=== PATIENT | female | born 1970 | race Caucasian/White ===

== ENCOUNTER 2016-05-29 02:21 | Inpatient (IN) | payer OTHER ==
[~2016-05-29] VITALS: Ht 172.7 cm; Wt 86.0 kg
[2016-05-29] VITALS (12 sets, daily range): BP systolic 93–107; BP diastolic 56–70; PULSE 53–62; TEMP 36.4–37; O2SAT 95–98; Ht 172.7 cm; Wt 86.0 kg
[~2016-05-29 02:21] MED LIST: ASPEC81 PO; ATOR-26 PO; IPRA1AER2 INH; LSN25 PO; NCDT21X TOP; NTRGSL/4 UT; PLV75 PO; TPRSR50 PO
[2016-05-29] MEDS ORDERED: ASPEC81 PO (02:39)
[2016-05-29] MEDS ORDERED: ATOR-26 PO (02:40)
[2016-05-29] MEDS ORDERED: CLOP1TAB15 PO (02:41)
[2016-05-29] MEDS ORDERED: IPRA1AER2 INH (02:42)
[2016-05-29] MEDS ORDERED: LISI-729 PO (02:43)
[2016-05-29] MEDS ORDERED: METO-217 PO (02:44)
[2016-05-29] MEDS ORDERED: NCDT21X TOP (02:46)
[2016-05-29] MEDS ORDERED: NTRGSL/4 UT (02:47)
[2016-05-29] MEDS ORDERED: POLY1POW2 PO (02:48)
[2016-05-29] MEDS ORDERED: LEVO75TA5 PO (02:50)
[2016-05-29] MEDS ORDERED: PRLSR20 PO (02:50)
--- NOTE | 2016-05-29 03:29 | EMERGENCY ROOM VISIT NOTE ---
History Report prepared by Rona: Perfecto Forrester Under the Supervision of: Dr. Marni Young D.O. First contact with patient: 02:37 Chief Complaint: CHEST PAIN Stated Complaint: CHEST PAIN/PALPITATIONS Nursing Triage Summary: Patient was at home lying down while awake and reports severe left chest pain that radiated into jaw. At that time patient took a Nitro with minimal relief & spouse called EMS. Patient took one more Nitro prior to ambulance arriving. EMS gave patient 324mg of Aspirin & [address] Was effective for majority of pain & now reports "little pressure" rates #1/10 on arrival. AAOx4. Respirations 20 & unlabored. Denies SOB. History of Present Illness The patient is a 45 year old female who presents to the Emergency Room with complaints of sudden onset chest pain that occurred shortly prior to arrival. The patient describes her current pain as a "heaviness" and claimed that it felt as though she was "punched in the chest" at onset. The patient was laying in bed when her symptoms began. Her gave her two nitroglycerin shortly after onset with no relief. Two more nitroglycerin were administered by EMS which improved her condition. She denies any nausea, vomiting, or diaphoresis with her symptoms, but was short of breath during the episode. The patient has a history of cardiac disease and has had stents placed in the past. She currently takes Plavix and baby Aspirin daily. 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 A total of 10 systems reviewed and were otherwise negative. Past Medical & Surgical Medical Problems: (1) NSTEMI (non-ST elevated myocardial infarction) Surgical Problems: (1) H/O breast surgery (2) H/O rotator cuff surgery (3) H/O tubal ligation Family History Heart disease Social History Smoking Status: Former Smoker Alcohol Use: occasionally Drug Use: none Marital Status: Occupation Status: employed Current/Historical Medications Scheduled Aspirin (Aspirin EC Low Dose), 81 MG PO DAILY Atorvastatin (Lipitor), 80 MG PO DAILY Clopidogrel (Plavix), 75 MG PO DAILY Levothyroxine Sodium (Levothyroxine Sodium), 75 MCG PO DAILY Lisinopril (Zestril), 2.5 MG PO DAILY Metoprolol Succinate (Toprol Xl), 50 MG PO DAILY Nicotine (Nicoderm Cq 21MG Patch), 1 PATCH TOP DAILY Omeprazole (Prilosec), 20 MG PO DAILY Polyethylene Glycol 3350 (Bulk (Polyethylene Glycol 3350), 17 GM PO DIRECTED Scheduled PRN Ipratropium-Albuterol (Combivent Respimat), 1 PUFFS INH QID PRN for cough/ wheezing/congestion Nitroglycerin (Nitrostat), 0.4 MG UT DIRECTED PRN for chest pain Allergies Coded Allergies: No Known Allergies (Unverified , 05/29/16) Physical Exam Vital Signs Date Time Temp Pulse Resp B/P Pulse Ox O2 Delivery O2 Flow Rate FiO2 05/29/16 06:34 36.5 62 16 97/61 96 Room Air 05/29/16 06:21 70 16 112/68 98 Nasal Cannula 3 05/29/16 06:16 68 16 113/67 98 Nasal Cannula 3 05/29/16 06:11 70 16 120/73 98 Nasal Cannula 3 05/29/16 06:06 66 16 117/73 98 Nasal Cannula 3 05/29/16 05:31 75 18 143/83 100 Nasal Cannula 2.0 05/29/16 04:58 74 21 116/86 100 Room Air 05/29/16 04:28 62 14 107/65 97 Room Air 05/29/16 04:22 65 16 111/76 97 Room Air 05/29/16 02:31 37.0 74 20 114/64 96 Room Air 05/29/16 02:31 97 Room Air 05/29/16 02:30 72 Physical Exam HEENT: Head - normocephalic and atraumatic Pupils are equal, round, and reactive to light. Extraocular eye muscles are intact, and sclera are anicteric. Nose - moist nasal mucosa without discharge. Mouth - moist buccal mucosa. Oropharynx is nonerythematous and there is no tonsillar exudate or edema noted. Neck: Supple; no JVD, nuchal rigidity, cervical lymphadenopathy, or auscultated bruits. Heart: Regular rate and rhythm. There is a normal S1 and S2 with no murmurs, clicks, or gallops appreciated. Lungs: Clear to auscultation bilaterally with no wheezes, rales, or rhonchi. Abdomen: Soft, completely nontender, nondistended, with good bowel sounds. There are no palpable pulsatile masses or hepatosplenomegaly. There is no guarding, rigidity, or rebound noted. Extremities: No evidence of cyanosis, clubbing, or edema. There are easily palpable peripheral pulses. Skin: warm and dry with good turgor and no rashes. Medical Decision & Procedures ER Provider Diagnostic Interpretation: X-ray results as stated below per interpretation by me: CHEST X-RAY: No pulmonary infiltrates or pleural effusions. Normal cardiac silhouette with no mediastinal widening. Laboratory Results 05/29/16 01:48 05/29/16 01:48 Test 05/29/16 01:48 05/29/16 05:13 Red Blood Count 4.57 M/uL (4.2-5.4) Mean Corpuscular Volume 87.7 fL (80-100) Mean Corpuscular Hemoglobin 29.5 pg (25-34) Mean Corpuscular Hemoglobin Concent 33.7 g/dl (32-36) RDW Standard Deviation 45.4 fL (36.4-46.3) RDW Coefficient of Variation 14.0 % (11.5-14.5) Mean Platelet Volume 10.4 fL (7.4-10.4) Prothrombin Time 9.9 SECONDS (9.0-12.0) Prothromb Time International Ratio 0.9 (0.9-1.1) Activated Partial Thromboplast Time 27.5 SECONDS (21.0-31.0) Partial Thromboplastin Ratio 1.1 Anion Gap 12.0 mmol/L (3-11) Est Creatinine Clear Calc Drug Dose 81.5 ml/min Estimated GFR () 79.6 Estimated GFR (Non- 68.7 BUN/Creatinine Ratio 12.9 (10-20) Calcium Level 9.0 mg/dl (8.5-10.1) Total Bilirubin 0.2 mg/dl (0.2-1) Direct Bilirubin < 0.1 mg/dl (0-0.2) Aspartate Amino Transf (AST/SGOT) 14 U/L (15-37) Alanine Aminotransferase (ALT/SGPT) 24 U/L (12-78) Alkaline Phosphatase 136 U/L (45-117) Total Creatine Kinase 69 U/L (26-192) Creatine Kinase MB 1.1 ng/ml (0.5-3.6) Creatine Kinase MB Ratio 1.6 (0-3.0) Total Protein 7.4 gm/dl (6.4-8.2) Albumin 4.0 gm/dl (3.4-5.0) Troponin I 0.023 ng/ml (0-0.045) Amylase Level 38 U/L (25-115) Lipase 192 U/L (73-393) Laboratory results per my review. Medications Administered Medications (Trade) Dose Ordered Sig/Jem Route Start Time Stop Time Status Last Admin Dose Admin Morphine Sulfate (MoRPHine SULFATE INJ) 4 mg NOW STAT IV 05/29/16 04:15 05/29/16 04:16 DC 05/29/16 04:24 4 MG Ondansetron HCl (Zofran Inj) 4 mg NOW STAT IV 05/29/16 04:15 05/29/16 04:16 DC 05/29/16 04:23 4 MG Nitroglycerin (Nitrostat Tab) 0.4 mg STK-MED ONCE .ROUTE 05/29/16 04:49 05/29/16 04:50 DC 05/29/16 04:49 0.4 MG Morphine Sulfate (MoRPHine SULFATE INJ) 4 mg NOW STAT IV 05/29/16 04:55 05/29/16 04:56 DC 05/29/16 04:55 4 MG Heparin Sodium/ Sodium Chloride (Heparin Sod/Ns 2 Units/Ml) 3,000 unit STK-MED ONCE .ROUTE 05/29/16 05:32 05/29/16 05:33 DC 05/29/16 05:32 3,000 UNIT Midazolam HCl (Versed Inj) 2 mg STK-MED ONCE .ROUTE 05/29/16 05:33 05/29/16 05:34 DC 05/29/16 05:33 1 MG Fentanyl Citrate (Fentanyl Inj) 100 mcg STK-MED ONCE .ROUTE 05/29/16 05:33 05/29/16 05:35 DC 05/29/16 05:33 25 MCG Procedure Medications Ordered: Zofran, Morphine, Nitroglycerin. ECG Indication: chest pain Rate (beats per minute): 76 Rhythm: normal sinus Findings: T-wave inversion (Anteriorly, laterally) Comparison ECG Date: Repeat from this visit Change: Normal sinus rhythm, T-wave inversions still present. [address]-elevation in inferior leads. ED Course 0255: Past medical records reviewed. The patient was evaluated in room B7. A complete history and physical exam was performed. The patient had a twelve- lead EKG. 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 Laboratory studies were drawn as above. 0415: Ordered Zofran 4 mg IV, Morphine Sulfate 4 mg IV. Patient had chest x- ray which was unremarkable. 0422: The patient has been chest pain-free here in the emergency department. I discussed the case with Dr. Maryanne PARADA Hospitalist, he will evaluate the patient for further treatment. 0448: I met with the patient at this time. Her chest pain has returned it is an 8/10 in severity. 0449: Ordered Nitroglycerin 0.4 mg PO. 0455: Ordered Morphine Sulfate 4 mg IV. 0502:I discussed the case with Dr. Morelia PARADA he will come in to see the patient. A heart alert was called 0524: Dr. Thibodeaux was at bedside at this time. I met with him and the patient. She is currently in significant pain. Medical Decision This patient is a 45 year old female who presents to the emergency department for chest pain. Differential Diagnosis includes; STEMI, ACS, in-stent reocclusion, GERD, pleurisy, aortic dissection. Laboratory Results were reviewed and show; No leukocytosis, stable hemoglobin and hematocrit, troponin of 0.022, LFTs normal except for AlkPhos of 136, normal renal function, normal glucose, and normal coagulation studies Repeat troponin showed Troponin of 0.023. The patient presents to the emergency department with a sudden onset of substernal chest discomfort that radiated to her left shoulder and left jaw. Patient recently had an and STEMI with a following cardiac catheterization. She had a subtotal LAD occlusion and had a stent placed. She also had angioplasty of the diagonal. This occurred around May 08. She had been asymptomatic up until tonight. She received nitroglycerin at home and in the field with resolution of her symptoms. However, the patient developed recurrent chest discomfort while here in the emergency department with some slight EKG changes. Her presenting EKG had T-wave inversions in the anterior and lateral leads compared to one from May 09. After the chest pain started again during her ED visit, there was just slight ST segment elevation in the inferior leads. 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 Consults Time Called: [phone] Consulting Physician: Dr. Maryanne Lundberg [facility] Hospitalist Returned Call: [phone] I discussed the case with Dr. Maryanne PARADA Hospitalist, he will evaluate the patient for further treatment. Additional Consults: Time Called: [phone] Consulted Physician: Dr. Morelia PARADA Returned Call: 050 Additional Comments: I discussed the case with Dr. Morelia PARADA he will come in to see the patient. Impression Primary Impression: Substernal chest pain Critical Care I have personally spent greater than 60 minutes of critical care time in the direct management of this patient. This includes bedside care, interpretation of diagnostic studies, and testing, discussion with consultants, patient, and family members, and other required patient management activities. This 60 minutes is in excess of all separately billable procedures. Scribe Attestation The scribe's documentation has been prepared under my direction and personally reviewed by me in its entirety. I confirm that the note above accurately reflects all work, treatment, procedures, and medical decision making performed by me. Departure Information Dispostion Being Evaluated By Hospitalist Referrals Bela Luis M.D. (PCP) Patient Instructions A Signature Page, My [facility]
[2016-05-29 03:45] LABS: HEMATOCRIT 40.1 % (37-47); MEAN CELL VOLUME 87.7 fL (80-100); MEAN CORPUSCULAR HEMOGLOBIN 29.5 pg (25-34); MEAN CORPUSCULAR HGB CONC 33.7 g/dl (32-36); MEAN PLATELET VOLUME 10.4 fL (7.4-10.4); PLATELET COUNT 268 K/uL (130-400); RED BLOOD COUNT 4.57 M/uL (4.2-5.4); WHITE BLOOD COUNT 10.02 K/uL (4.8-10.8)
[2016-05-29 03:51] LABS: INR 0.9 (0.9-1.1); PARTIAL THROMBOPLASTIN RATIO 1.1; PROTHROMBIN TIME (PATIENT) 9.9 SECONDS (9.0-12.0)
[2016-05-29 04:03] LABS: ALT/SGPT 24 U/L (12-78); AST/SGOT 14 U/L (15-37); BLOOD UREA NITROGEN 13 mg/dl (7-18); BUN/CREATININE RATIO 12.9 (10-20); CARBON DIOXIDE 26 mmol/L (21-32); CHLORIDE 104 mmol/L (98-107); CREATININE 0.98 mg/dl (0.60-1.20); GLUCOSE 96 mg/dl (70-99); POTASSIUM 4.2 mmol/L (3.5-5.1); SODIUM 142 mmol/L (136-145)
[2016-05-29 04:08] LABS: ALKALINE PHOSPHATASE 136 U/L (45-117); CKMB/CK RATIO 1.6 (0-3.0)
[2016-05-29] MEDS ORDERED: ONDANSETRON INJ 2 MG/ML 2 ML VIAL IV STA (04:15)
[2016-05-29] MEDS ORDERED: MoRPHine SULFATE 4 MG/ML 1 ML CARP\\VIAL IV STA ×2 (04:15→04:55)
[2016-05-29] MEDS ORDERED: NITROGLYCERIN 0.4 MG SL PER TAB CHARGE ONE (04:49)
[2016-05-29] MEDS ORDERED: NiCARDipine HCL INJ 2.5 MG/ML 10 ML AMP ONE (05:31)
[2016-05-29] MEDS ORDERED: HEPARIN SOD (PORCINE) 1000 UNIT/ML 10 ML VIAL ONE (05:32)
[2016-05-29] MEDS ORDERED: FENTANYL CITRATE INJ 50 MCG/1 ML 2 ML VIAL ONE (05:33)
[2016-05-29] MEDS ORDERED: MIDAZOLAM HCL 1 MG/ML 2ML VIAL ONE (05:33)
[2016-05-29] MEDS ORDERED: NITROGLYCERIN/D5W 100MCG/ML 20ML SYR ONE (05:33)
--- NOTE | 2016-05-29 06:10 | CARDIOLOGY CONSULTATION ---
DATE OF CONSULTATION: 05/29/2016 REASON FOR CONSULT: Unstable angina. HISTORY OF PRESENT ILLNESS: Lupe is a 45-year-old female, with known coronary artery disease. She underwent cardiac catheterization on 05/09/2016 with a 100% LAD early occlusion. A drug-eluting stent placed in the mid LAD with a good result. She developed similar symptoms this evening with severe epigastric pain relieved with 3 nitroglycerins in the ER and now has returned. She has T-wave inversion on EKG which is a new finding. Troponin is mildly elevated with ongoing pain. She was taken emergently to the cardiac catheterization lab. She has mild associated shortness of breath and severe anxiety. No vomiting. No syncope. Blood pressure and heart rate are stable. REVIEW OF SYSTEMS: All other systems are reviewed and negative at this time. PAST MEDICAL HISTORY: Includes coronary artery disease, diabetes, hypertension and hyperlipidemia. PAST SURGICAL HISTORY: 1. PCI mid LAD with a Xience drug-eluting stent. 2. Bilateral tubal ligation, rotator cuff surgery, breast surgery and cholecystectomy. ALLERGIES: None. SOCIAL HISTORY: Positive for recent tobacco abuse - quit after last MD. Negative for significant alcohol or drug use. FAMILY HISTORY: Noncontributory, but positive for coronary artery disease. IMMUNIZATIONS: Unknown. PHYSICAL EXAMINATION: VITAL SIGNS: 37, 75, 18, 143/83, 100% on 2 liters. She is awake, alert and oriented, in moderate distress. NECK: No jugular venous distention or carotid bruits. HEART: Rate is regular, no murmurs, rubs or gallops. PMI cannot be felt. LUNGS: No wheezes, rales or rhonchi. ABDOMEN: Tender in the epigastric area. EXTREMITIES: No edema in all 4 extremities. Dorsalis pedis cannot be felt. Radial pulses 1+ on the right. Femoral pulse 2+ on the right. LABORATORIES: White count 10, hemoglobin 13.5, platelets 268, creatinine 0.98 and troponin 0.022 initially. Chest x-ray personally reviewed, showing no acute disease. Electrocardiogram personally reviewed, showing sinus rhythm with T-wave inversions throughout the anterolateral leads. IMPRESSION: 1. Unstable angina with ECG changes, mild troponin elevation. 2. Known coronary artery disease with history of drug-eluting stent, mid left anterior descending 05/09/2016. 3. Hypertension. 4. Hyperlipidemia. 5. Diabetes. 6. Tobacco abuse. RECOMMENDATIONS: It is recommended that Lupe go to the cardiac catheterization lab more urgently given her severe chest discomfort at this time. She states her symptoms are exactly the same as her previous 100% LAD occlusion. Further recommendations will follow the cardiac catheterization. On previous catheterization, radial attempt was unsuccessful and therefore femoral attempt will be repeated. ADDENDUM: Cath completed. Right femoral access. No significant CAD. Patent LAD stent. Diagonal patent. Nothing to intervene upon. Admit to telemetry, epigastric pain workup. check echo. continue OMT for her CAD. ADELE
--- NOTE | 2016-05-29 06:29 | Procedure Note ---
Pre-Mod Sedation Assessment General Date of Moderate Sedation: May 29, 2016. Vital Signs: Vital Signs Past 12 Hours Date Time Temp Pulse Resp B/P Pulse Ox O2 Delivery O2 Flow Rate FiO2 05/29/16 06:21 70 16 112/68 98 Nasal Cannula 3 05/29/16 06:16 68 16 113/67 98 Nasal Cannula 3 05/29/16 06:11 70 16 120/73 98 Nasal Cannula 3 05/29/16 06:06 66 16 117/73 98 Nasal Cannula 3 05/29/16 05:31 75 18 143/83 100 Nasal Cannula 2.0 05/29/16 04:58 74 21 116/86 100 Room Air 05/29/16 04:28 62 14 107/65 97 Room Air 05/29/16 04:22 65 16 111/76 97 Room Air 05/29/16 02:31 37.0 74 20 114/64 96 Room Air 05/29/16 02:31 97 Room Air 05/29/16 02:30 72 Review Cardiovascular: regular rate, rhythm, no edema, no gallop, no JVD, no murmur, normal peripheral pulses Abdomen: normal bowel sounds, non tender, soft, no organomegaly, no pulsatile mass Lungs: chest non-tender, lungs clear, normal breath sounds, no respiratory distress, no accessory muscle use Pre-Sedation Airway Assessment Able to Visualize Vocal Cords: No Short Thick Neck: No Hx of Sleep Apnea: No Smoking Status: Former Smoker Procedure Planning Contraindications-for Mod Sed: None Yes Notes The planned sedation has been discussed with the patient and consent obtained. I have identified the patient, determined the appropriateness of sedation and have assessed the patient immediately prior to the procedure. All medicine(s) and interventions are by my order.
--- NOTE | 2016-05-29 06:29 | Procedure Note ---
Post-Mod Sedation Assessment General Date of Moderate Sedation May 29, 2016. Vital Signs: Vital Signs Past 12 Hours Date Time Temp Pulse Resp B/P Pulse Ox O2 Delivery O2 Flow Rate FiO2 05/29/16 06:21 70 16 112/68 98 Nasal Cannula 3 05/29/16 06:16 68 16 113/67 98 Nasal Cannula 3 05/29/16 06:11 70 16 120/73 98 Nasal Cannula 3 05/29/16 06:06 66 16 117/73 98 Nasal Cannula 3 05/29/16 05:31 75 18 143/83 100 Nasal Cannula 2.0 05/29/16 04:58 74 21 116/86 100 Room Air 05/29/16 04:28 62 14 107/65 97 Room Air 05/29/16 04:22 65 16 111/76 97 Room Air 05/29/16 02:31 37.0 74 20 114/64 96 Room Air 05/29/16 02:31 97 Room Air 05/29/16 02:30 72 Review - Discharge Criteria Vital Signs Stable: Yes Alert/Oriented/Conversant: Yes Returned to Baseline Mental St: Yes Nausea Absent/Minimal: Yes Pain/Discomfort/Absent/Minimal: Yes Normal/Baseline Respirations: Yes Active Bleeding?: No Pt Received D/C Instructions: Yes Prescriptions Given: None Specific Proced. D/C Criteria Distal Pulses Present (Cardiac: Yes Groin site assessed-Card Cath: Yes Voided Prior To Discharge: N/A Discharged Patients Adult Escort/Transportation: N/A
[2016-05-29] MEDS ORDERED: ONDANSETRON INJ 2 MG/ML 2 ML VIAL IV PRN (06:30)
[2016-05-29] MEDS ORDERED: IPRATROPIUM BROMIDE/ALBUTEROL respimat INH INH PRN (06:30)
[2016-05-29] MEDS ORDERED: SODIUM CHLORIDE 0.9% 1000ML 1,000 ML IV SCH (06:30)
[2016-05-29] MEDS ORDERED: POLYETHYLENE GLYCOL PO SCH (06:30)
[2016-05-29] MEDS ORDERED: NITROGLYCERIN 0.4 MG SL PER TAB CHARGE UT PRN (06:30)
--- NOTE | 2016-05-29 06:37 | Cardiac Catheterization ---
Procedure Note Procedure Date May 29, 2016. 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 Thibodeaux Veterinary Manager(s) alexander Estimated Blood Loss 20 Medication(s) Fentanyl, Versed, Lidocaine 1% Summary of Findings Angina-equivalent epigastric pain - minimal ST elevations inferiorly, new T wave inversions anterolaterally. Severe pain. Discussion with ED - Heart Alert called. US -guided right TEST LEAD access. EBU 3.75. LM: normal. LAD: patent mid vessel stent. Diagonal vessel patent. LAD wraps the apex. LCx: normal. RCA: dominant. Normal. LVgram not performed. Mynx to the right groin Recommendation: admit to telemetry, cycle another troponin in the AM. Evaluate for other causes of abdominal pain. Hemodynamics Rest Ao: 127/70/93 Final Ao: 132/66/92 LV: 155/88/74 Recommendations Medical therapy and/or Counseling Specimens None Radiation Exposure (mGy) 938 Contrast (mls) 90 Fluids (cc crystalloids) 50 Drains none Anesthesia fent versed lido Procedural Complication(s) None Disposition PCU ACC Data Cardiac Status Clinical evaluation leading to the procedure CAD Presntation: Unstable angina Anginal Classification: CCS IV Heart Failure: Yes, NYHA Class: CCS II Cardiogenic Shock w/in 24Hrs: No Cardiac Arrest w/in 24Hrs: No Imaging studies past 6 months: Yes Stress studies past 6 months: No Standard Exercise Stress Test: No Stress Echocardiogram: No Stress Testing w/SPECT MPI: No Cardiac CTA: No Coronary Anatomy Dominant: Right Left Main (% Stenosis): Normal LAD (% Stenosis): Proximal (30), Mid (stent patent) D1 (% Stenosis): Normal Circumflex (% Stenosis): Normal RCA (% Stenosis): Normal Left Ventricular Angiography EF (%): not done Diagnostic Physician's Name: Jose Thibodeaux, DO Status: Emergency Closure Device Percutaneous Entry Location: Femoral Closure Device: Mynx Recommendations: Medical therapy and/or Counseling Intraprocedure Events Significant Dissection: No Perforation: No
[2016-05-29 06:53] LABS: AMYLASE 38 U/L (25-115)
--- NOTE | 2016-05-29 06:53 | DIAGNOSTIC IMAGING REPORT ---
CHEST ONE VIEW PORTABLE CLINICAL HISTORY: Left sided chest pain. COMPARISON STUDY: Chest radiograph May 09, 2016. FINDINGS: No pneumothorax or pleural effusion is present. Apparent hazy bibasilar opacities are likely artifactual. Cardiac size is normal. Mediastinal contours are normal. There is no evidence of pulmonary edema. The appearance of the chest is unchanged. IMPRESSION: No acute cardiopulmonary findings. Electronically signed by: Arnol Ta M.D. 05/29/2016 6:51 AM Dictated Date/Time: 05/29/2016 6:50 AM
[2016-05-29] MEDS ORDERED: GI COCKTAIL PO PRN (08:00)
[2016-05-29] MEDS ORDERED: ALUMINUM/MAGNESIUM SUSP 72 ML, LIDOCAINE HCL 2% VISCOUS SOLN 24 ML, BARCODE IDENTIFIER ... PO PRN ×2 (08:15)
[2016-05-29] MEDS ORDERED: ACETAMINOPHEN 325 MG TAB ONE (09:07)
[2016-05-29] MEDS ORDERED: PERFLUTREN LIPID MICROSPHERE (DEFINITY) IV ONE (09:45)
[2016-05-29] MEDS: METOPROLOL SUCC 50MG EXT REL TAB PO SCH (10:05)
[2016-05-29] MEDS: CLOPIDOGREL BISULFATE 75 MG TAB PO SCH (10:05)
[2016-05-29] MEDS: LISINOPRIL 2.5 MG TAB PO SCH (10:05)
[2016-05-29] MEDS: NICOTINE 21 MG/24 HR TDSY TD SCH (10:06)
[2016-05-29] MEDS: ASPIRIN 81 MG ECTAB PO SCH (10:06)
[2016-05-29] MEDS: ATORVASTATIN 40 MG TAB PO SCH (10:06)
[2016-05-29] MEDS: PANTOprazole SOD 40 MG TAB PO SCH (10:08)
[2016-05-29] MEDS ORDERED: HYDROmorphone INJ 0.5 MG/0.5 ML SYR IV STA (10:46)
[2016-05-29] MEDS ORDERED: HYDROmorphone INJ 0.5 MG/0.5 ML SYR IV PRN (11:00)
--- NOTE | 2016-05-29 13:35 | ECHOCARDIOGRAM REPORT ---
*NOTICE TO RECEIVING DEMOCRAT AGENCY This information is strictly Confidential and protected under [place] law. [place] law prohibits you from making any further disclosure of this information unless further disclosure is expressly permitted by the written consent of the person to whom it pertains or is authorized by law. A general authorization for the release of medical or other information is not sufficient for this purpose. Hospital accepts no responsibility if the information is made available to any other person, INCLUDING THE PATIENT. Interpretation Summary * Name: BARNEY SÁNCHEZ Study Date: 05/29/2016 09:16 AM BP: 93/56 mmHg * Patient Location: S237 HR: 60 * : 1970 (M/d/yyyy) Gender: Female Height: 68 in * Age: 45 yrs Ethnicity: CA Weight: 189 lb * Ordering Physician: Jose Thibodeaux DO * Referring Physician: Jose Thibodeaux DO * Performed By: Usman Lee RCS * * Reason For Study: Chest Pain, S/P CATH * BSA: 2.0 m2 * -- Conclusions -- * Left ventricular systolic function is normal. * Limited area of hypokinesis involving the mid anterior wall. * Ejection Fraction = 55-60%. * There is mild mitral regurgitation. Procedure Details * A complete two-dimensional transthoracic echocardiogram was performed (2D, M-mode, Doppler and color flow Doppler). * A contrast injection of Definity was performed to improve assessment of LV function. * Contrast was injected into an intravenous site in the left arm. * One vial of Definity ultrasound contrast was diluted in normal saline to a total volume of 10 ml. A total of '2' ml of solution was administered during imaging. * Lot # [id number] of Definity utilized for procedure. * Expiration date 1JUN. * The attending nurse who injected the contrast agent was Kranthi Patel RN. Left Ventricle * The left ventricle is normal in size. * There is normal left ventricular wall thickness. * Ejection Fraction = 55-60%. * Left ventricular systolic function is normal. * Limited area of hypokinesis involving the mid anterior wall. Right Ventricle * The right ventricle is normal size. * The right ventricular systolic function is normal as assessed by tricuspid annular plane systolic excursion (TAPSE) (normal >1.5 cm). Atria * The left atrium is borderline dilated. * Right atrial size is normal. Mitral Valve * The mitral valve is grossly normal. * There is no mitral valve stenosis. * There is mild mitral regurgitation. Tricuspid Valve * The tricuspid valve is not well visualized, but is grossly normal. * Significant tricuspid regurgitation is absent. Aortic Valve * The aortic valve is not well visualized. * The aortic valve opens well. * No hemodynamically significant valvular aortic stenosis. * There is no significant aortic regurgitation. Pulmonic Valve * The pulmonary valve is not well seen, but the Doppler examination is normal without significant regurgitation or stenosis. Great Vessels * The aortic root is normal size. Pericardium/Pleural * There is no pericardial effusion. Great Vessels * Normal inferior vena cava size and collapsability with sniff indicates a normal right atrial pressure of 3 mmHg MMode 2D Measurements and Calculations IVSd 1.0 cm IVSs 1.2 cm LVIDd 4.1 cm LVIDs 2.8 cm LVPWd 1.0 cm LVPWs 1.2 cm IVS/LVPW 1.0 FS 33.1 % EDV(Teich) 74.8 ml ESV(Teich) 28.3 ml EF(Teich) 62.2 % EDV(cubed) 69.7 ml ESV(cubed) 20.8 ml EF(cubed) 70.1 % % IVS thick 12.9 % % LVPW thick 17.0 % LV mass(C)d 138.8 grams LV mass(C)dI 69.6 grams/m\S\2 LV mass(C)s 95.1 grams LV mass(C)sI 47.7 grams/m\S\2 CO(Teich) 2.4 l/min CI(Teich) 1.2 l/min/m\S\2 SV(Teich) 46.5 ml SI(Teich) 23.3 ml/m\S\2 CO(cubed) 2.5 l/min CI(cubed) 1.3 l/min/m\S\2 SV(cubed) 48.8 ml SI(cubed) 24.5 ml/m\S\2 Ao root diam 3.1 cm Ao root area 7.6 cm\S\2 ACS 1.3 cm LA dimension 3.3 cm LA/Ao 1.1 LVAd ap4 38.9 cm\S\2 LVLd ap4 9.2 cm EDV(MOD-sp4) 137.0 ml LVAs ap4 21.5 cm\S\2 LVLs ap4 7.1 cm ESV(MOD-sp4) 54.0 ml EF(MOD-sp4) 60.6 % LVAd ap2 34.9 cm\S\2 LVLd ap2 9.0 cm EDV(MOD-sp2) 114.0 ml LVAs ap2 19.7 cm\S\2 LVLs ap2 7.3 cm ESV(MOD-sp2) 44.0 ml EF(MOD-sp2) 61.4 % CO(MOD-sp4) 4.3 l/min CI(MOD-sp4) 2.2 l/min/m\S\2 SV(MOD-sp4) 83.0 ml SI(MOD-sp4) 41.6 ml/m\S\2 CO(MOD-sp2) 3.6 l/min CI(MOD-sp2) 1.8 l/min/m\S\2 SV(MOD-sp2) 70.0 ml SI(MOD-sp2) 35.1 ml/m\S\2 Doppler Measurements and Calculations MV E max reji 93.8 cm/sec MV A max reji 73.5 cm/sec MV E/A 1.3 MV P1/2t max reji 114.9 cm/sec MV P1/2t 107.6 msec MVA(P1/2t) 2.0 cm\S\2 MV dec slope 312.7 cm/sec\S\2 MV dec time 0.21 sec Ao V2 max 129.0 cm/sec Ao max PG 6.7 mmHg Ao max PG (full) 2.6 mmHg LV V1 max PG 4.1 mmHg LV V1 max 101.2 cm/sec PA V2 max 78.4 cm/sec PA max PG 2.5 mmHg
[2016-05-29] MEDS: HYDROmorphone INJ 1 MG/ML SYR IV PRN ×2 (14:08→19:27)
--- NOTE | 2016-05-29 14:08 | DIAGNOSTIC IMAGING REPORT ---
ABDOMINAL ULTRASOUND, RIGHT UPPER QUADRANT HISTORY: Abdominal pain. COMPARISON: CT of the chest, abdomen and pelvis May 08, 2016 and right upper quadrant ultrasound December 11, 2013. FINDINGS: Liver morphology is normal. No hepatic lesions are identified. Liver echogenicity is at the upper limits of normal. There is slight dilatation of the common bile duct status post cholecystectomy. The common bile duct measures 8 mm in caliber. This is similar to prior CT. No common bile duct calculi are identified although the distal common bile duct is obscured. The pancreas is obscured. There is no right hydronephrosis. IMPRESSION: 1. Mild dilatation of the common bile duct. This is likely due to prior cholecystectomy and is similar to prior CT of May 08, 2016. This could be correlated with obstructive liver function tests. 2. Largely obscured pancreas. Electronically signed by: Arnol Ta M.D. 05/29/2016 2:06 PM Dictated Date/Time: 05/29/2016 2:03 PM
[2016-05-29] MEDS: HEPARIN SOD 5000 UNIT/0.5 ML CARP SQ SCH ×2 (14:12→21:26)
--- NOTE | 2016-05-29 15:09 | Gastrointestinal Consultation ---
Gastrointestinal Consultation Date of Consultation: May 29, 2016 Consulting Physician: Dr. Bernal Reason for Consultation: chest pain History of Present Illness Patient is a 45 year old female with past medical history of NSTEMI (05/09/16), cholecystitis (s/p cholecystectomy 2013). Patient reports that this pain is similar to previous gallbladder attacks and recent AR. She has been cleared from a cardiac standpoint, undergoing a cath this AM. She states that she has had a gastric ulcer in the distant past and says that this does not feel similar. She reports the pain feels like a vice is squeezing her. She states this pain is constant, epigastric, radiating around her torso wrapping to her back. She denies any associated nausea, vomiting, diarrhea. She denies fever, chills, She denies any signs of reflux. She is taking aspirin and plavix. ABD US 05/27/16: Liver morphology is normal. No hepatic lesions are identified. Liver echogenicity is at the upper limits of normal. There is slight dilatation of the common bile duct status post cholecystectomy. The common bile duct measures 8 mm in caliber. This is similar to prior CT. No common bile duct calculi are identified although the distal common bile duct is obscured. The pancreas is obscured. There is no right hydronephrosis. Past Medical/Surgical History Medical Problems: (1) Substernal chest pain Status: Acute Family History Heart disease Social History Smoking Status: Former Smoker Alcohol Use: occasionally Drug Use: none Marital Status: Occupation Status: employed Allergies Coded Allergies: No Known Allergies (Unverified , 05/29/16) Current Medications Home Meds and Scripts Medications Dose Route/Sig Max Daily Dose Days Date Category Prilosec (Omeprazole) 20 Mg Capcr 20 Mg PO DAILY 05/29/16 Reported Levothyroxine Sodium 75 Mcg Tab 75 Mcg PO DAILY 90 05/29/16 Reported Polyethylene Glycol 3350 (Polyethylene Glycol 3350 (Bulk) 1 Pow Pow 17 Gm PO DIRECTED 05/29/16 Reported Nitrostat (Nitroglycerin) 0.4 Mg Tab 0.4 Mg UT DIRECTED PRN 05/29/16 Reported Nicoderm Cq 21MG Patch (Nicotine) 1 Patch Tdsy 1 Patch TOP DAILY 28 05/29/16 Reported Toprol Xl (Metoprolol Succinate) 50 Mg Tabcr 50 Mg PO DAILY 05/29/16 Reported Zestril (Lisinopril) 5 Mg Tab 2.5 Mg PO DAILY 05/29/16 Reported Combivent Respimat (Ipratropium-Albuterol) 1 Aer Aer 1 Puffs INH QID PRN 05/29/16 Reported Plavix (Clopidogrel Bisulfate) 75 Mg Tab 75 Mg PO DAILY 05/29/16 Reported Lipitor (Atorvastatin Calcium) 80 Mg Tab 80 Mg PO DAILY 05/29/16 Reported Aspirin EC Low Dose (Aspirin) 81 Mg Ectab 81 Mg PO DAILY 05/29/16 Reported Review of Systems Constitutional: No chills, No fever Respiratory: No cough, No shortness of breath Cardiac: + chest pain Abdomen: + pain, No GI bleeding, No constipation, No diarrhea, No nausea, No vomiting Physical Exam Date Time Temp Pulse Resp B/P Pulse Ox O2 Delivery O2 Flow Rate FiO2 05/29/16 12:32 36.5 61 20 103/68 95 Room Air 05/29/16 07:56 36.4 60 18 93/56 98 Room Air 05/29/16 06:34 36.5 62 16 97/61 96 Room Air 05/29/16 06:21 70 16 112/68 98 Nasal Cannula 3 05/29/16 06:16 68 16 113/67 98 Nasal Cannula 3 05/29/16 06:11 70 16 120/73 98 Nasal Cannula 3 05/29/16 06:06 66 16 117/73 98 Nasal Cannula 3 05/29/16 05:31 75 18 143/83 100 Nasal Cannula 2.0 05/29/16 04:58 74 21 116/86 100 Room Air 05/29/16 04:28 62 14 107/65 97 Room Air 05/29/16 04:22 65 16 111/76 97 Room Air 05/29/16 02:31 37.0 74 20 114/64 96 Room Air 05/29/16 02:31 97 Room Air 05/29/16 02:30 72 General Appearance: no apparent distress (patient is loopy - she states she just recieved a dose of pain medication ) Eyes: PERRL ENT: hearing grossly normal Neck: supple, trachea midline Respiratory/Chest: lungs clear, normal breath sounds, no respiratory distress, no accessory muscle use Cardiovascular: regular rate, rhythm, no edema, no gallop, no JVD, no murmur Abdomen: normal bowel sounds, soft, no organomegaly, no pulsatile mass, + tenderness (epigastic and upper quadrant) Neurologic/Psych: alert, normal mood/affect, oriented x 3 Skin: normal color Laboratory Results Last 24 Hours Test 05/29/16 01:48 05/29/16 05:13 White Blood Count 10.02 K/uL Red Blood Count 4.57 M/uL Hemoglobin 13.5 g/dL Hematocrit 40.1 % Mean Corpuscular Volume 87.7 fL Mean Corpuscular Hemoglobin 29.5 pg Mean Corpuscular Hemoglobin Concent 33.7 g/dl RDW Standard Deviation 45.4 fL RDW Coefficient of Variation 14.0 % Platelet Count 268 K/uL Mean Platelet Volume 10.4 fL Prothrombin Time 9.9 SECONDS Prothromb Time International Ratio 0.9 Activated Partial Thromboplast Time 27.5 SECONDS Partial Thromboplastin Ratio 1.1 Sodium Level 142 mmol/L Potassium Level 4.2 mmol/L Chloride Level 104 mmol/L Carbon Dioxide Level 26 mmol/L Anion Gap 12.0 mmol/L Blood Urea Nitrogen 13 mg/dl Creatinine 0.98 mg/dl Est Creatinine Clear Calc Drug Dose 81.5 ml/min Estimated GFR () 79.6 Estimated GFR (Non- 68.7 BUN/Creatinine Ratio 12.9 Random Glucose 96 mg/dl Calcium Level 9.0 mg/dl Total Bilirubin 0.2 mg/dl Direct Bilirubin < 0.1 mg/dl Aspartate Amino Transf (AST/SGOT) 14 U/L Alanine Aminotransferase (ALT/SGPT) 24 U/L Alkaline Phosphatase 136 U/L Total Creatine Kinase 69 U/L Creatine Kinase MB 1.1 ng/ml Creatine Kinase MB Ratio 1.6 Troponin I 0.022 ng/ml 0.023 ng/ml Total Protein 7.4 gm/dl Albumin 4.0 gm/dl Amylase Level 38 U/L Lipase 192 U/L Impression Patient is a 45 year old female with a typical chest pain, pain is constant without any associated symptoms. Differentials include gastritis, esophagitis, PUD Plan NPO after midnight EGD with Gabe tomorrow PPI daily ATTESTATION: I have performed a history and physical examination of this patient and reviewed the electronic record. Specifically, on physical examination there is no abdominal tenderness. I have discussed the case with TERRELL Corona. The above note reflects my findings, conclusions, and recommendations. Leland Bernal MD
--- NOTE | 2016-05-29 15:48 | History and Physical ---
History & Physical Date & Time of Service: May 29, 2016 at 07:50 Chief Complaint: Abdominal Pain Primary Care Physician: Bela Luis M.D. History of Present Illness Source: patient 45 F presents t with complaints of sudden onset chest pain, described as a "heaviness" and claimed that it felt as though she was "punched in the chest" at onset. The patient was laying in bed when her symptoms began. She had recently had a MId LAD CHOCO placed 05/05 and feels this discomfort is similar. Her gave her two nitroglycerin with no relief. Two more nitroglycerin were administered by EMS which improved her discomfort. She denies any nausea, vomiting, or diaphoresis with her symptoms, but was short of breath during the episode. Based on her symptoms with a baseline ECG with changes, she was taken to the [facility] with no additional disease seen. Cardiology recommendation was to proceed to alternative work up for chest pain Past Medical/Surgical History Surgical Problems: (1) H/O breast surgery Status: Resolved (2) H/O rotator cuff surgery Status: Resolved (3) H/O tubal ligation Status: Resolved Family History Heart disease Social History Smoking Status: Former Smoker Drug Use: none Marital Status: Occupational Status: employed Allergies Coded Allergies: No Known Allergies (Unverified , 05/29/16) Home Medications Scheduled Aspirin (Aspirin EC Low Dose), 81 MG PO DAILY Atorvastatin (Lipitor), 80 MG PO DAILY Clopidogrel (Plavix), 75 MG PO DAILY Levothyroxine Sodium (Levothyroxine Sodium), 75 MCG PO DAILY Lisinopril (Zestril), 2.5 MG PO DAILY Metoprolol Succinate (Toprol Xl), 50 MG PO DAILY Nicotine (Nicoderm Cq 21MG Patch), 1 PATCH TOP DAILY Omeprazole (Prilosec), 20 MG PO DAILY Polyethylene Glycol 3350 (Bulk (Polyethylene Glycol 3350), 17 GM PO DIRECTED Scheduled PRN Ipratropium-Albuterol (Combivent Respimat), 1 PUFFS INH QID PRN for cough/ wheezing/congestion Nitroglycerin (Nitrostat), 0.4 MG UT DIRECTED PRN for chest pain Review of Systems Constitutional: No chills, No fever, No weakness Respiratory: No cough, No dyspnea on exertion, No shortness of breath, No sputum, No wheezing Cardiovascular: + chest pain, No PND, No edema, No orthopnea Abdomen: No diarrhea, No nausea, No pain, No vomiting Musculoskeletal: No joint pain, No muscle pain Genitourinary - Female: No dysuria, No urinary frequency Psychiatric: No anhedonism, No depression symptoms Endocrine: No excessive thirst, No fatigue Hematologic / Lymphatic: No abnormal bleeding/bruising, No clotting problems Physical Exam Vital Signs Date Time Temp Pulse Resp B/P Pulse Ox O2 Delivery O2 Flow Rate FiO2 05/29/16 06:34 36.5 62 16 97/61 96 Room Air 05/29/16 06:21 70 16 112/68 98 Nasal Cannula 3 05/29/16 06:16 68 16 113/67 98 Nasal Cannula 3 05/29/16 06:11 70 16 120/73 98 Nasal Cannula 3 05/29/16 06:06 66 16 117/73 98 Nasal Cannula 3 05/29/16 05:31 75 18 143/83 100 Nasal Cannula 2.0 05/29/16 04:58 74 21 116/86 100 Room Air 05/29/16 04:28 62 14 107/65 97 Room Air 05/29/16 04:22 65 16 111/76 97 Room Air 05/29/16 02:31 37.0 74 20 114/64 96 Room Air 05/29/16 02:31 97 Room Air 05/29/16 02:30 72 Diagnostics Laboratory Results Results Past 24 Hours Test 05/29/16 01:48 05/29/16 05:13 Range/Units White Blood Count 10.02 4.8-10.8 K/uL Red Blood Count 4.57 4.2-5.4 M/uL Hemoglobin 13.5 12.0-16.0 g/dL Hematocrit 40.1 37-47 % Mean Corpuscular Volume 87.7 80-100 fL Mean Corpuscular Hemoglobin 29.5 25-34 pg Mean Corpuscular Hemoglobin Concent 33.7 32-36 g/dl RDW Standard Deviation 45.4 36.4-46.3 fL RDW Coefficient of Variation 14.0 11.5-14.5 % Platelet Count 268 130-400 K/uL Mean Platelet Volume 10.4 7.4-10.4 fL Prothrombin Time 9.9 9.0-12.0 SECONDS Prothromb Time International Ratio 0.9 0.9-1.1 Activated Partial Thromboplast Time 27.5 21.0-31.0 SECONDS Partial Thromboplastin Ratio 1.1 Sodium Level 142 136-145 mmol/L Potassium Level 4.2 3.5-5.1 mmol/L Chloride Level 104 98-107 mmol/L Carbon Dioxide Level 26 21-32 mmol/L Anion Gap 12.0 3-11 mmol/L Blood Urea Nitrogen 13 7-18 mg/dl Creatinine 0.98 0.60-1.20 mg/dl Est Creatinine Clear Calc Drug Dose 81.5 ml/min Estimated GFR () 79.6 Estimated GFR (Non- 68.7 BUN/Creatinine Ratio 12.9 10-20 Random Glucose 96 70-99 mg/dl Calcium Level 9.0 8.5-10.1 mg/dl Total Bilirubin 0.2 0.2-1 mg/dl Direct Bilirubin < 0.1 0-0.2 mg/dl Aspartate Amino Transf (AST/SGOT) 14 15-37 U/L Alanine Aminotransferase (ALT/SGPT) 24 12-78 U/L Alkaline Phosphatase 136 45-117 U/L Total Creatine Kinase 69 26-192 U/L Creatine Kinase MB 1.1 0.5-3.6 ng/ml Creatine Kinase MB Ratio 1.6 0-3.0 Troponin I 0.022 0.023 0-0.045 ng/ml Total Protein 7.4 6.4-8.2 gm/dl Albumin 4.0 3.4-5.0 gm/dl Amylase Level 38 25-115 U/L Lipase 192 73-393 U/L CXR normal other (lateral T wave inversions) Impression Assessment and Plan 45 F with Chest pain, known CAD with stent in April, and negative acute Left heart Cath 05/29/16 CAD will continue Aspirin Plavix, metoprolol and atorvastatin Chest pain, is on ppi, try GI cocktail, given recent starts on aspirin and plavix and stressors of being ill, GI medicine will have endoscopy 05/30/16 VTE Prophylaxis VTE Risk Assessment Done? Y/N: Yes Risk Level: Moderate Given or contraindicated: Unfractionated heparin SQ
[2016-05-29] MEDS ORDERED: INFLUENZA VIRUS QUAD VACCINE 0.5 ML SYR IM. ONE (16:15)
[2016-05-29] MEDS ORDERED: INFLUENZA ADMINISTRATION CHARGE ONE (16:15)
[2016-05-30] VITALS: BP 106/67; PULSE 63; TEMP 36.5; O2SAT 96
[2016-05-30 04:43] VITALS: BP 120/80; PULSE 71; TEMP 36.8; O2SAT 95
[2016-05-30] MEDS: HEPARIN SOD 5000 UNIT/0.5 ML CARP SQ SCH (04:54)
[2016-05-30] MEDS ORDERED: LEVOTHYROXINE 75 MCG TAB PO SCH (06:00)
[2016-05-30 07:15] LABS: BASO % 0.4 %; BASO ABS # 0.03 K/uL (0-0.2); COMPLETE YES; EOS % 3.4 %; HEMATOCRIT 36.3 % (37-47); IG% 0.1 %; LYMPH % 23.3 %; LYMPH ABS # 1.57 K/uL (1.2-3.4); MEAN CELL VOLUME 87.5 fL (80-100); MEAN CORPUSCULAR HEMOGLOBIN 28.9 pg (25-34); MEAN CORPUSCULAR HGB CONC 33.1 g/dl (32-36); MEAN PLATELET VOLUME 10.3 fL (7.4-10.4); MONO % 8.2 %; NEUT % 64.6 %; PLATELET COUNT 192 K/uL (130-400); RED BLOOD COUNT 4.15 M/uL (4.2-5.4); WHITE BLOOD COUNT 6.73 K/uL (4.8-10.8)
[2016-05-30 07:55] LABS: CALCIUM 8.9 mg/dl (8.5-10.1); CREATININE 0.64 mg/dl (0.60-1.20); POTASSIUM 4.1 mmol/L (3.5-5.1)
[2016-05-30 07:57] VITALS: BP 117/78; PULSE 70; TEMP 36.5; O2SAT 95
[2016-05-30] MEDS ORDERED: PROPOFOL IV EMULSION 10 MG/ML 20 ML VIAL IV ONE (09:01)
[2016-05-30] MEDS ORDERED: LIDOCAINE HCL 2% 2 ML VIAL (20MG/ML) ONE (09:01)
--- NOTE | 2016-05-30 09:30 | GI REPORT ---
Procedure Date: 05/30/2016 9:06 AM Procedure: Upper GI endoscopy Indications: Unexplained chest pain Medicines: Monitored Anesthesia Care Complications: No immediate complications. Estimated blood loss: None. Estimated Blood Loss: Estimated blood loss: none. Procedure: Pre-Anesthesia Assessment: - Prior to the procedure, a History and Physical was performed, and patient medications, allergies and sensitivities were reviewed. The patient's tolerance of previous anesthesia was reviewed. - ASA Grade Assessment: III - A patient with severe systemic disease. After obtaining informed consent, the endoscope was passed under direct vision. Throughout the procedure, the patient's blood pressure, pulse, and oxygen saturations were monitored continuously. The On-site loaner was introduced through the mouth, and advanced to the third part of duodenum. The upper GI endoscopy was accomplished with ease. The patient tolerated the procedure well. Findings: The upper third of the esophagus, middle third of the esophagus and lower third of the esophagus were normal. The Z-line was regular. A small hiatus hernia was present. The stomach was normal. The examined duodenum was normal. Impression: - Normal upper third of esophagus, middle third of esophagus and lower third of esophagus. - Z-line regular. - Small hiatus hernia. - Normal stomach. - Normal examined duodenum. - No specimens collected. Recommendation: - [facility]. Leland Bernal M.D. Leland Bernal MD 05/30/2016 9:29:38 AM This report has been signed electronically. Note Initiated On: 05/30/2016 9:06 AM
--- NOTE | 2016-05-30 09:49 | Anesthesiology Progress Note ---
Anesthesia Post Op Note Date & Time May 30, 2016 at 09:48 Vital Signs Pain Intensity: 0 Vital Signs Past 12 Hours Date Time Temp Pulse Resp B/P Pulse Ox O2 Delivery O2 Flow Rate FiO2 05/30/16 09:35 69 20 123/75 96 Room Air 05/30/16 09:21 65 16 112/66 96 Room Air 05/30/16 08:35 37 68 20 125/70 94 Room Air 05/30/16 07:57 36.5 70 22 117/78 95 Room Air 05/30/16 04:43 36.8 71 18 120/80 95 Room Air 05/30/16 04:00 Room Air 05/30/16 00:00 Room Air 05/30/16 00:00 36.5 63 18 106/67 96 Room Air Notes Mental Status: alert / awake / arousable, participated in evaluation Pt Amnestic to Procedure: Yes Nausea / Vomiting: adequately controlled Pain: adequately controlled Airway Patency, RR, SpO2: stable & adequate BP & HR: stable & adequate Hydration State: stable & adequate Anesthetic Complications: no major complications apparent
[2016-05-30] MEDS ORDERED: PRLSR20 PO (10:17)
--- NOTE | 2016-05-30 10:19 | Discharge Instructions ---
Discharge Instructions Admission Reason for Admission: Abdominal Pain Discharge Discharge Diagnosis / Problem: non cardiac chest pain, negative scope for ulcers Discharge Goals Goal(s): Diagnostic testing, Therapeutic intervention Activity Recommendations Activity Limitations: resume your previous activity . Current Hospital Diet Patient's current hospital diet: AHA Diet (Heart Healthy), Full Liquid Diet Discharge Diet Recommended Diet: Regular Diet Procedures Procedures Performed: EGD Pending Studies Studies pending at discharge: no Laboratory Results Hemoglobin A1c Test 05/09/16 02:30 Range/Units Estimated Average Glucose 108 mg/dl Hemoglobin A1c 5.4 4.5-5.6 % Lipid Panel Test 05/09/16 04:47 Range/Units Triglycerides Level 250 H 0-150 mg/dl Cholesterol Level 224 H 0-200 mg/dl HDL Cholesterol 34 mg/dl Cholesterol/HDL Ratio 6.6 LDL Cholesterol, Calculated 140 mg/dl Medical Emergencies . Who to Call and When: Medical Emergencies: If at any time you feel your situation is an emergency, please call 911 immediately. . Non-Emergent Contact Non-Emergency issues call your: Primary Care Provider . . "Provider Documentation" section prepared by Talat Griffiths. VTE Core Measure Inpt VTE Proph given/why not?: Unfractionated heparin SQ
[2016-05-30] MEDS: LISINOPRIL 2.5 MG TAB PO SCH (10:30)
[2016-05-30] MEDS: NICOTINE 21 MG/24 HR TDSY TD SCH (10:30)
[2016-05-30] MEDS: METOPROLOL SUCC 50MG EXT REL TAB PO SCH (10:31)
[2016-05-30] MEDS: ATORVASTATIN 40 MG TAB PO SCH (10:31)
[2016-05-30] MEDS: PANTOprazole SOD 40 MG TAB PO SCH (10:31)
[2016-05-30] MEDS: CLOPIDOGREL BISULFATE 75 MG TAB PO SCH (10:31)
[2016-05-30] MEDS: ASPIRIN 81 MG ECTAB PO SCH (10:31)
--- NOTE | 2016-05-30 10:45 | CARDIOLOGY PROGRESS NOTE ---
DATE: 05/30/2016 The patient was seen by me in the GI lab recovery unit. She has undergone her EGD this morning by Dr. Bernal. She is awake and alert. She denies any chest pain or dyspnea. No orthopnea or PND. No palpitations, lightheadedness, or syncope. No further abdominal pain. She does complain of headaches. Mild tenderness at her right femoral catheterization site from yesterday morning. No right leg pain. No cerebrovascular complaints. No peripheral vascular complaints of arterial insufficiency. MEDICATIONS: Aspirin 81 mg daily, atorvastatin 80 mg daily, clopidogrel 75 mg daily, lisinopril 2.5 mg daily, metoprolol succinate ER 50 mg daily, Nicoderm patch 1 patch daily, pantoprazole 40 mg daily, subQ heparin 5000 units q. 8 hours, levothyroxine 75 mcg daily, and a few p.r.n. medications. ALLERGIES AND ADVERSE DRUG REACTIONS: None. PHYSICAL EXAMINATION: VITAL SIGNS: Post-EGD show pulse 69, blood pressure 123/75. Pulse oximetry room air 96%. NECK: No jugular venous distention. LUNGS: Normal respiratory effort. Clear. No rales or wheezes. HEART: Regular rate and rhythm. S1, S2 normal. No S3 or S4. No murmur or rub. ABDOMEN: Soft. Nontender. No palpable masses or organomegaly. EXTREMITIES: Right femoral catheterization site without bleeding. Mild tenderness. No bruit over the right femoral artery. No pretibial edema. Right dorsalis pedis pulse strongly palpable. NEUROLOGICAL: Alert and oriented x3. Motor grossly intact. Echocardiogram performed yesterday and reviewed by me shows hypokinesis of the mid anterior wall. Compared to echocardiogram from May 09 there has been a marked improvement in the ejection fraction and wall motion of the left ventricle. On the May 09 echo there was atypical, mid anterior and mid anteroseptal akinesis. There was severe mid lateral hypokinesis. The akinetic areas have returned to normal other than hypokinesis in the mid anterior segment. The lateral wall motion is also now normal. LABORATORIES: Today with hemoglobin 12.0, hematocrit 36.3, platelet count 192, WBC 6.73. Troponin I's have been 0.022, 0.023, and 0.056. Metabolic profile today was sodium 142, potassium 4.1, chloride 111, carbon dioxide 22, BUN 8, creatinine 0.64, random glucose 81. Cardiac catheterization performed yesterday morning by Dr. Jose Thibodeaux revealed patent mid LAD stent site. Good flow in LAD diagonal. No significant obstructive coronary artery disease. EGD today revealed a small hiatal hernia. Normal stomach. Normal duodenum. No evidence of bleeding. ASSESSMENT: 1. Status post mid left anterior descending stent 05/09/2016. Stent site patent on cardiac catheterization performed yesterday morning. 2. Severe epigastric pain prompting admission yesterday morning. Emergency cardiac catheterization with patent left anterior descending stent site. Good flow in left anterior descending diagonal. No further epigastric pain or chest pain. 3. Troponin I this morning minimally elevated above normal. This is not diagnostic of myocardial injury. 4. Marked improvement in left ventricular systolic function on echocardiogram yesterday compared to May 09 echo. Her overall left ventricular systolic function and ejection fraction are now normal. Marked improvement in apical, septal, and lateral wall motion. Improvement in mid anterior wall motion. 5. No evidence of any significant vascular complications at right femoral catheterization site. 6. Blood pressure and heart rate well controlled. RECOMMENDATIONS: 1. Continue current cardiac medications. 2. Increase activity after she recovers from anesthesia given this morning. 3. No further cardiac workup or evaluation at this time. She underwent a cardiac catheterization yesterday. She had the echocardiogram which reveals marked improvement in her LV wall motion compared to May 09. 4. Outpatient followup visit with me as scheduled. 5. I recommended to the patient that she not return to work until June 05.
[2016-05-30 10:48] VITALS: BP 123/75; PULSE 69; TEMP 37; O2SAT 96
--- NOTE | 2016-05-30 15:38 | Discharge Summary ---
Discharge Summary Admission Date: May 29, 2016 at 06:28 Discharge Date: May 30, 2016 Discharge Disposition: Home Principal Diagnosis: non cardiac chest pain, hiatal hernia Procedures: Left heart cath, non occlusive disease, stent open EGD hiatal hernia Medication Reconciliation Changed Medications: Omeprazole (Prilosec) 20 Mg Capcr 40 MG PO DAILY, #60 CAP 6 Refills (Changed from: 20 MG; Refills: ) Continued Medications: Aspirin (Aspirin EC Low Dose) 81 Mg Ectab 81 MG PO DAILY Atorvastatin (Lipitor) 80 Mg Tab 80 MG PO DAILY, TAB Clopidogrel (Plavix) 75 Mg Tab 75 MG PO DAILY, TAB Ipratropium-Albuterol (Combivent Respimat) 1 Aer Aer 1 PUFFS INH QID PRN for cough/wheezing/congestion, INH Levothyroxine Sodium (Levothyroxine Sodium) 75 Mcg Tab 75 MCG PO DAILY for 90 Days, #90 TAB 3 Refills Lisinopril (Zestril) 5 Mg Tab 2.5 MG PO DAILY, TAB Metoprolol Succinate (Toprol Xl) 50 Mg Tabcr 50 MG PO DAILY, #30 TAB Nicotine (Nicoderm Cq 21MG Patch) 1 Patch Tdsy 1 PATCH TOP DAILY for 28 Days, #28 PATCH Nitroglycerin (Nitrostat) 0.4 Mg Tab 0.4 MG UT DIRECTED PRN for chest pain, BTL Polyethylene Glycol 3350 (Bulk (Polyethylene Glycol 3350) 1 Pow Pow 17 GM PO DIRECTED, #255 GM Discharge Exam Review of Systems: Constitutional: No chills, No fever Respiratory: No cough, No shortness of breath, No sputum Cardiovascular: No chest pain, No edema, No orthopnea Abdomen: No nausea, No pain, No vomiting Neurologic: No memory loss, No paralysis Physical Exam: General Appearance: WD/WN, no apparent distress Neck: supple, no JVD Respiratory/Chest: chest non-tender, lungs clear, normal breath sounds Cardiovascular: regular rate, rhythm, no murmur Abdomen / GI: normal bowel sounds, non tender, soft Extremities: no pedal edema, normal range of motion Neurologic/Psychiatric: alert, oriented x 3 Hospital Course 45 F with Chest pain, known CAD with stent in April, and negative acute Left heart Cath 05/29/16 CAD will continue Aspirin Plavix, metoprolol and atorvastatin Chest pain, is on ppi, try GI cocktail, given recent starts on aspirin and plavix and stressors of being ill, GI medicine did have endoscopy 05/30/16 negative for active issues except hiatal hernia, will increase ppi to prilosec 40 mg a day and recommend pcp follow up Total Time Spent: Greater than 30 minutes This includes examination of the patient, discharge planning, medication reconciliation, and communication with other providers. Discharge Instructions Please refer to the electronic Patient Visit Report (Discharge Instructions) for additional information.
== END 2016-05-30 11:21 | disposition home or self-care (01) | DRG 287 ==
LOC: EDBD 02:21 → C.EDB 02:22 → C.2T 06:28
PROVIDERS: ADMIT Internal Medicine; ATTEND Internal Medicine
PROC: 4A023N7 Measurement of Cardiac Sampling and Pressure, Left Heart, Percutaneous Approach (ICD-10-PCS; principal; 2016-05-29 06:08)
PROC: B2111ZZ Fluoroscopy of Multiple Coronary Arteries using Low Osmolar Contrast (ICD-10-PCS; principal; 2016-05-29 06:08)
PROC: 0DJ08ZZ Inspection of Upper Intestinal Tract, Via Natural or Artificial Opening Endoscopic (ICD-10-PCS; 2016-05-30)
DX: R07.89 Other chest pain (principal); I25.110 Atherosclerotic heart disease of native coronary artery with unstable angina pectoris; K44.9 Diaphragmatic hernia without obstruction or gangrene; E78.5 Hyperlipidemia, unspecified; I25.2 Old myocardial infarction; R10.13 Epigastric pain; R79.89 Other specified abnormal findings of blood chemistry; R94.31 Abnormal electrocardiogram [ECG] [EKG]; E11.9 Type 2 diabetes mellitus without complications; I10 Essential (primary) hypertension; K21.9 Gastro-esophageal reflux disease without esophagitis; E03.9 Hypothyroidism, unspecified; Z95.5 Presence of coronary angioplasty implant and graft; Z87.891 Personal history of nicotine dependence; Z79.82 Long term (current) use of aspirin; Z79.02 Long term (current) use of antithrombotics/antiplatelets; Z79.899 Other long term (current) drug therapy

== ENCOUNTER 2016-06-05 12:47 | Emergency (ER) | payer OTHER ==
[~2016-06-05] VITALS: Ht 172.7 cm; Wt 88.6 kg
[~2016-06-05 12:47] MED LIST changes: +CLOP1TAB15 PO; +LEVO75TA5 PO; +LISI-729 PO; -LSN25 PO; +METO-217 PO; -PLV75 PO; +POLY1POW2 PO; +PRLSR20 PO; -TPRSR50 PO
[2016-06-05 13:13] VITALS: TEMP 36.9; Ht 172.7 cm; Wt 88.6 kg
[2016-06-05] MEDS ORDERED: CEPH500C2 PO (13:43)
[2016-06-05] MEDS ORDERED: TRAM-10 PO ×2 (13:43→14:25)
--- NOTE | 2016-06-05 14:27 | EMERGENCY ROOM VISIT NOTE ---
History First contact with patient: 13:17 Chief Complaint: OTHER COMPLAINT Stated Complaint: STENT SITE BLEEDING History of Present Illness The patient is a 45 year old female who presents to the Emergency Room with complaints of bleeding from a femoral site where she had a stent placed on May 09 and then was reaccessed at the same area on May 29. The patient states that she just noticed some blood running down her leg today. The patient denies any known trauma to the area. She states it's only a small amount of blood but she called Dr. Murray and he told her to come to the emergency room. The patient states that she is currently on antibiotics for the site since they thought it might be getting infected. The patient denies any fever. The patient is on Plavix and aspirin. Review of Systems 6 system review was performed and was negative unless stated otherwise in history of present illness. Past Medical/Surgical History Medical Problems: (1) NSTEMI (non-ST elevated myocardial infarction) Surgical Problems: (1) H/O breast surgery (2) H/O rotator cuff surgery (3) H/O tubal ligation Family History Heart disease Social History Smoking Status: Never Smoker Alcohol Use: occasionally Drug Use: none Marital Status: Occupation Status: employed Current/Historical Medications Scheduled Aspirin (Aspirin EC Low Dose), 81 MG PO DAILY Atorvastatin (Lipitor), 80 MG PO DAILY Cephalexin Monohydrate (Keflex), 500 MG PO TID Clopidogrel (Plavix), 75 MG PO DAILY Levothyroxine Sodium (Levothyroxine Sodium), 75 MCG PO DAILY Lisinopril (Zestril), 2.5 MG PO DAILY Metoprolol Succinate (Toprol Xl), 50 MG PO DAILY Nicotine (Nicoderm Cq 21MG Patch), 1 PATCH TOP DAILY Omeprazole (Prilosec), 40 MG PO DAILY Polyethylene Glycol 3350 (Bulk (Polyethylene Glycol 3350), 17 GM PO DIRECTED Scheduled PRN Ipratropium-Albuterol (Combivent Respimat), 1 PUFFS INH QID PRN for cough/ wheezing/congestion Nitroglycerin (Nitrostat), 0.4 MG UT DIRECTED PRN for chest pain Tramadol (Ultram), 50 MG PO Q6H PRN for Pain Allergies Coded Allergies: Morphine (Unverified Adverse Reaction, Unknown, GI UPSET, 06/05/16) Physical Exam Vital Signs Date Time Temp Pulse Resp B/P Pulse Ox O2 Delivery O2 Flow Rate FiO2 06/05/16 13:13 36.9 70 18 103/70 96 Room Air Physical Exam GENERAL: 45-year-old white female appears in no acute distress. MENTAL Status: Alert and oriented 3 LUNGS: Clear auscultation without wheezes rales or rhonchi. CARDIAC: Regular rate and rhythm without murmur. Pulses is full and equal throughout. RIGHT GROIN: There is a 2 cm x 1.5 cm area of ecchymosis in the right groin region. There is a punctate opening centrally which only has a small drop of blood on it. If it is wiped away and another drop returns within a few seconds. There is very minimal surrounding erythema. The area is tender to palpation. Medical Decision & Procedures ED Course The patient was evaluated. Treatment plan was discussed with Dr. Perry and was in agreement. The wound was dried and Dermabond applied. 4 x 4's were also placed over the wound. The patient was observed for 40 minutes to make sure she did not have any topical reaction to the Dermabond. The patient was discharged home in stable condition. Medical Decision Differential diagnosis include uncontrolled bleeding, hematoma, reopening of wound Impression Primary Impression: Bleeding Departure Information Dispostion Home / Self-Care Condition GOOD Prescriptions Tramadol (Ultram) 50 Mg Tab 1-2 TAB PO Q6 Y for Pain, #20 TAB For Initial Treatment Prov: Caty Estrada PA-C 06/05/16 Referrals Bela Luis M.D. (PCP) Forms HOME CARE DOCUMENTATION FORM, IMPORTANT VISIT INFORMATION, WORK / SCHOOL INSTRUCTIONS Patient Instructions My [facility] Additional Instructions I would also need for pain. Take Ultram as needed for more severe pain. Do not drive while taking the Ultram. Do not apply antibiotic ointment to the wound. The skin glue will follow off in 2-3 days. Any further bleeding, follow -up with Dr. Murray.
[2016-06-05 14:34] VITALS: BP 104/69; PULSE 72; O2SAT 98
== END 2016-06-05 14:40 | disposition home or self-care (01) ==
LOC: C.EDB 12:48 → C.EDA 14:40
DX: L76.22 Postprocedural hemorrhage of skin and subcutaneous tissue following other procedure (principal); I25.2 Old myocardial infarction; Z79.02 Long term (current) use of antithrombotics/antiplatelets; Z79.82 Long term (current) use of aspirin; Z98.51 Tubal ligation status; Z98.890 Other specified postprocedural states

== ENCOUNTER → 2017-01-04 | Outpatient (CLI) | payer OTHER ==
[~2017-01-04] MED LIST changes: +CEPH500C2 PO; +TRAM-10 PO
[2017-01-04 13:31] LABS: CHOLESTEROL/HDL RATIO 4.2
== END | disposition home or self-care (01) ==
LOC: C.LABPBG 07:27
PROVIDERS: ATTEND Physician Assistant
DX: E78.5 Hyperlipidemia, unspecified (principal)

== ENCOUNTER → 2017-01-05 | Outpatient (CLI) | payer OTHER ==
[2017-01-05 12:00] LABS: BLOOD UREA NITROGEN 14 mg/dl (7-18); BUN/CREATININE RATIO 17.4 (10-20); CALCIUM 9.6 mg/dl (8.5-10.1); CARBON DIOXIDE 28 mmol/L (21-32); CHLORIDE 107 mmol/L (98-107); CREATININE 0.82 mg/dl (0.60-1.20); GLUCOSE 88 mg/dl (70-99); POTASSIUM 4.2 mmol/L (3.5-5.1); SODIUM 137 mmol/L (136-145)
== END | disposition home or self-care (01) ==
LOC: C.LABPBG 08:18
PROVIDERS: ATTEND Physician Assistant
DX: Z00.00 Encounter for general adult medical examination without abnormal findings (principal); E03.9 Hypothyroidism, unspecified

== ENCOUNTER → 2017-04-16 | Outpatient (CLI) | payer OTHER | END | disposition home or self-care (01) | LOC: C.LABSPEC 12:24 | PROVIDERS: ATTEND Physician Assistant | DX: J02.9 Acute pharyngitis, unspecified (principal) ==

== ENCOUNTER → 2017-04-17 | Outpatient (CLI) | payer OTHER ==
[2017-04-17 13:13] LABS: THYROID STIMULATING HORMONE 11.5 uIu/ml (0.300-4.500)
== END | disposition home or self-care (01) ==
LOC: C.LABPBG 10:08
PROVIDERS: ATTEND Physician Assistant
DX: E03.9 Hypothyroidism, unspecified (principal); R53.83 Other fatigue

== ENCOUNTER → 2017-05-22 | Outpatient (CLI) | payer OTHER ==
[~2017-05-22] MED LIST changes: -ASPEC81 PO; +ASPI-320 PO; +CHOL100010 PO; +CITA20TA9 PO; +FLUT230A INH; +LEVO112T4 PO; +LEVO125T5 PO; +LISI-1116 PO; +LOSA1TAB PO; +METO25TA4 PO; +MONT1TAB3 PO; +MULTTAB58 PO; +OMEGCAP2 PO; +OMEP40CA41 PO; +SUCR1TAB29 PO; +VITAMIN B12 PO; +VNTHFA/IN INH
== END | disposition home or self-care (01) ==
LOC: C.LABPBG 08:07
PROVIDERS: ATTEND Physician Assistant
DX: E03.9 Hypothyroidism, unspecified (principal)

== ENCOUNTER → 2017-06-20 | Outpatient (CLI) | payer OTHER ==
[~2017-06-20] MED LIST changes: +ASPEC81 PO; -ASPI-320 PO; -CHOL100010 PO; -CITA20TA9 PO; -FLUT230A INH; -LEVO112T4 PO; -LEVO125T5 PO; -LISI-1116 PO; -LOSA1TAB PO; -METO25TA4 PO; -MONT1TAB3 PO; -MULTTAB58 PO; -OMEGCAP2 PO; -OMEP40CA41 PO; -SUCR1TAB29 PO; -VITAMIN B12 PO; -VNTHFA/IN INH
== END | disposition home or self-care (01) ==
LOC: C.LABPBG 15:12
PROVIDERS: ATTEND Physician Assistant
DX: E03.9 Hypothyroidism, unspecified (principal)

== ENCOUNTER → 2017-07-26 | Outpatient (CLI) | payer OTHER ==
[2017-07-26 12:40] LABS: HEMATOCRIT 38.9 % (37-47); HEMOGLOBIN 12.9 g/dL (12.0-16.0); MEAN CELL VOLUME 87.6 fL (80-100); MEAN CORPUSCULAR HEMOGLOBIN 29.1 pg (25-34); MEAN CORPUSCULAR HGB CONC 33.2 g/dl (32-36); MEAN PLATELET VOLUME 10.4 fL (7.4-10.4); PLATELET COUNT 271 K/uL (130-400); RED CELL DISTRIBUTION WIDTH CV 15.5 % (11.5-14.5); RED CELL DISTRIBUTION WIDTH SD 49.9 fL (36.4-46.3); WHITE BLOOD COUNT 8.12 K/uL (4.8-10.8)
[2017-07-26 14:28] LABS: ALBUMIN 3.8 gm/dl (3.4-5.0); ALT/SGPT 35 U/L (12-78); AST/SGOT 21 U/L (15-37); BLOOD UREA NITROGEN 20 mg/dl (7-18); CALCIUM 9.3 mg/dl (8.5-10.1); CARBON DIOXIDE 27 mmol/L (21-32); GLUCOSE 110 mg/dl (70-99); POTASSIUM 4.1 mmol/L (3.5-5.1); SODIUM 140 mmol/L (136-145)
[2017-07-26 14:48] LABS: LDL CHOLESTEROL CALCULATED 96 mg/dl
[2017-07-26 14:50] LABS: ALKALINE PHOSPHATASE 142 U/L (45-117); CHOLESTEROL 180 mg/dl (0-200)
== END | disposition home or self-care (01) ==
LOC: C.LABPBG 07:50
PROVIDERS: ATTEND Family Medicine
DX: I25.10 Atherosclerotic heart disease of native coronary artery without angina pectoris (principal); E03.9 Hypothyroidism, unspecified; E55.9 Vitamin D deficiency, unspecified

== ENCOUNTER 2017-08-01 13:23 | Emergency (ER) | payer OTHER ==
[~2017-08-01] VITALS: Ht 172.7 cm; Wt 109.0 kg
[2017-08-01 13:26] VITALS: TEMP 36.6; Ht 172.7 cm; Wt 109.0 kg
[2017-08-01] MEDS ORDERED: MONT1TAB3 PO (13:38)
[2017-08-01] MEDS ORDERED: LOSA1TAB PO (13:38)
[2017-08-01] MEDS ORDERED: LEVO125T5 PO (13:38)
[2017-08-01] MEDS ORDERED: CITA20TA9 PO (13:38)
[2017-08-01] MEDS ORDERED: FLUT230A INH (13:38)
[2017-08-01] MEDS ORDERED: VNTHFA/IN INH (13:38)
[2017-08-01] MEDS ORDERED: METO25TA4 PO (13:38)
[2017-08-01] MEDS ORDERED: MULTTAB58 PO (13:39)
[2017-08-01] MEDS ORDERED: ALUMINUM/MAGNESIUM SUSP 30 ML UDC PO STA (13:47)
[2017-08-01] MEDS ORDERED: LIDOCAINE HCL 2% VISC SOLN 20 ML UDC PO STA (13:47)
[2017-08-01] MEDS ORDERED: FAMOTIDINE 20MG/5ML IV PUSH IV STA (13:47)
[2017-08-01] MEDS ORDERED: ALBUT/IPRATROP 3MG/0.5MG NEB 3 ML VIAL INH STA (13:47)
--- NOTE | 2017-08-01 14:07 | DIAGNOSTIC IMAGING REPORT ---
CHEST ONE VIEW PORTABLE HISTORY: EVALUATE WEAKNESS COMPARISON: Chest 12/27/2016. FINDINGS: The lungs are clear. Cardiac silhouette is normal in size. No pleural effusions. No pneumothorax. IMPRESSION: No acute process. Electronically signed by: Frank Cruz M.D. 08/01/2017 2:06 PM Dictated Date/Time: 08/01/2017 2:05 PM
[2017-08-01 14:31] VITALS: O2SAT 96
[2017-08-01 14:44] LABS: BASO % 0.5 %; BASO ABS # 0.04 K/uL (0-0.2); EOS % 2.4 %; EOS ABS # 0.19 K/uL (0-0.5); HEMATOCRIT 40.1 % (37-47); HEMOGLOBIN 13.2 g/dL (12.0-16.0); IG# 0.03 K/uL (0.00-0.02); LYMPH % 40.8 %; LYMPH ABS # 3.19 K/uL (1.2-3.4); MEAN CELL VOLUME 86.4 fL (80-100); MEAN CORPUSCULAR HEMOGLOBIN 28.4 pg (25-34); MEAN CORPUSCULAR HGB CONC 32.9 g/dl (32-36); MEAN PLATELET VOLUME 9.9 fL (7.4-10.4); MONO ABS # 0.55 K/uL (0.11-0.59); NEUT % 48.9 %; NEUT ABS # 3.82 K/uL (1.4-6.5); PLATELET COUNT 279 K/uL (130-400); RED CELL DISTRIBUTION WIDTH CV 15.3 % (11.5-14.5); RED CELL DISTRIBUTION WIDTH SD 48.8 fL (36.4-46.3); WHITE BLOOD COUNT 7.82 K/uL (4.8-10.8)
[2017-08-01 14:55] LABS: INR 0.9 (0.9-1.1); PTT PATIENT 26.8 SECONDS (21.0-31.0)
[2017-08-01] MEDS ORDERED: ONDANSETRON INJ 2 MG/ML 2 ML VIAL IV STA (15:06)
[2017-08-01] MEDS ORDERED: HYDROmorphone INJ 0.5 MG/0.5 ML SYR IV STA (15:06)
[2017-08-01 15:08] LABS: ALBUMIN 3.9 gm/dl (3.4-5.0); ALT/SGPT 36 U/L (12-78); AST/SGOT 22 U/L (15-37); BLOOD UREA NITROGEN 12 mg/dl (7-18); CALCIUM 9.8 mg/dl (8.5-10.1); CARBON DIOXIDE 25 mmol/L (21-32); CREATININE 0.92 mg/dl (0.60-1.20); GLUCOSE 94 mg/dl (70-99); LIPASE 137 U/L (73-393); POTASSIUM 3.9 mmol/L (3.5-5.1); SODIUM 136 mmol/L (136-145)
[2017-08-01 15:13] LABS: ALKALINE PHOSPHATASE 147 U/L (45-117); CKMB 0.8 ng/ml (0.5-3.6); TOTAL PROTEIN 8.2 gm/dl (6.4-8.2)
[2017-08-01] MEDS ORDERED: OPTIRAY 320 IV PRN (15:15)
--- NOTE | 2017-08-01 15:52 | DIAGNOSTIC IMAGING REPORT ---
CHEST CTA for PULMONARY ARTERIES CT DOSE: 614.73 mGy.cm HISTORY: Atypical chest pain. Elevated d-dimer. TECHNIQUE: Multiaxial CT images of the chest were performed following the intravenous administration of contrast to evaluate the pulmonary arteries. Maximal intensity projection images were also obtained. A dose lowering technique was utilized adhering to the principles of ALARA. COMPARISON STUDY: None. FINDINGS: There is a normal caliber thoracic aorta with no evidence for dissection. There is no evidence for pulmonary embolus. No pleural effusions. No pneumothorax. The liver and spleen are unremarkable. No mediastinal or hilar lymphadenopathy. The central airways are patent. Hazy appearance within the lungs suggesting a poor inspiratory effort. Otherwise, no focal lung consolidations to suggest pneumonia. IMPRESSION: 1. No evidence for pulmonary embolus. 2. Hazy appearance within the lungs suggesting a poor inspiratory effort. Otherwise, no focal lung consolidations to suggest pneumonia. Electronically signed by: Frank Cruz M.D. 08/01/2017 3:51 PM Dictated Date/Time: 08/01/2017 3:39 PM
[2017-08-01] MEDS ORDERED: TRAM-10 PO (16:17)
[2017-08-01] MEDS ORDERED: TRAMADOL HCL 50 MG TAB PO STA (16:50)
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
[2017-08-01 17:03] VITALS: BP 155/77; PULSE 73; O2SAT 95
== END 2017-08-01 17:04 | disposition home or self-care (01) ==
LOC: C.EDB 13:26 → C.EDC 17:04
DX: R07.89 Other chest pain (principal); I21.4 Non-ST elevation (NSTEMI) myocardial infarction; Z82.49 Family history of ischemic heart disease and other diseases of the circulatory system; Z79.82 Long term (current) use of aspirin

== ENCOUNTER → 2017-09-06 | Day surgery (SDC) | payer OTHER ==
[2017-08-24 13:27] VITALS: Ht 171.5 cm; Wt 110.5 kg
[~2017-09-06] VITALS: Ht 171.5 cm; Wt 110.5 kg
[~2017-09-06] MED LIST changes: -ASPEC81 PO; +ASPI-320 PO; -CEPH500C2 PO; +CHOL100010 PO; +CITA20TA9 PO; +FLUT230A INH; -IPRA1AER2 INH; +LEVO125T5 PO; -LEVO75TA5 PO; +LIDOCAINE HCL 2% 2 ML VIAL (20MG/ML) ONE; +LISI-1116 PO; -LISI-729 PO; +LOSA1TAB PO; -METO-217 PO; +METO25TA4 PO; +MIDAZOLAM HCL 1 MG/ML 2ML VIAL ONE; +MONT1TAB3 PO; +MULTTAB58 PO; -NCDT21X TOP; +OMEGCAP2 PO; +OMEP40CA41 PO; -POLY1POW2 PO; -PRLSR20 PO; +PROPOFOL IV EMULSION 10 MG/ML 20 ML VIAL IV ONE; +SODIUM CHLORIDE 0.9% 500ML 500 ML IV ONE; +VITAMIN B12 PO; +VNTHFA/IN INH
--- NOTE | 2017-09-06 13:22 | Endo History and Physical ---
History & Physical Date of Service: Sep 06, 2017. Chief Complaint: screening Referring Physician: Dr. Angelita Barr History of Present Illness 46 yo CF who presents for screening colonoscopy. Past Surgical History Hx Cardiac Surgery: Yes (HEART CATH-1 STENT PLACED) Hx Internal Defibrillator: No Hx Pacemaker: No Hx Abdominal Surgery: Yes (MEIR, LAPAROSCOPIES) Hx of Implantable Prosthesis: No Hx Post-Op Nausea and Vomiting: No Hx Cancer Surgery: No Hx Thoracic Surgery: No Hx Orthopedic: Yes (RT RING FINGER ORIF, LEFT SHOULDER SURGERY/RCR) Hx Urinary Tract Surgery: No Family History None Social History Smoking Status: Former Smoker Hx Substance Use: No Hx Alcohol Use: Yes (OCCASIONALLY) Allergies Coded Allergies: Adhesives (Verified Allergy, Unknown, HIVES, 08/24/17) Morphine (Verified Adverse Reaction, Unknown, GI UPSET, 09/06/17) Current Medications Reported Home Medications Medications Dose Route/Sig Max Daily Dose Days Date Category Ultram (Tramadol HCl) 50 Mg Tab 50-100 Mg PO Q4H PRN 08/24/17 Reported Lisinopril 2.5 Mg Tab 2.5 Mg PO QAM 08/24/17 Reported Prilosec (Omeprazole) 40 Mg Cap 40 Mg PO QAM 08/24/17 Reported [Vitamin B12] Unknown Strength Unknown Dose PO QAM 08/24/17 Reported Fish Oil ([place]-3 Fatty Acids) 1 Cap Cap 1 Cap PO QAM 08/24/17 Reported Vitamin D (Cholecalciferol) 1,000 Unit Tab 1 Tab PO QAM 08/24/17 Reported Multivitamin (Multiple Vitamin) 1 Tab Tab 1 Tab PO QAM 08/01/17 Reported Ventolin Hfa (Albuterol) 200 Puffs/67358 Mcg Aers 2-3 Puffs INH BID PRN 08/01/17 Reported Advair Hfa 230/21 Mcg (Fluticasone-Salmeterol 230/21 Mcg) 1 Aer Aer 2 Puffs INH BID 08/01/17 Reported Singulair (Montelukast Sodium) 10 Mg Tab 10 Mg PO QAM 08/01/17 Reported Celexa (Citalopram Hydrobromide) 20 Mg Tab 20 Mg PO QAM 08/01/17 Reported Cozaar (Losartan Potassium) 25 Mg Tab 25 Mg PO QAM 08/01/17 Reported Toprol Xl (Metoprolol Succinate) 25 Mg Tabcr 25 Mg PO QAM 08/01/17 Reported Levothyroxine Sodium 125 Mcg Tab 125 Mcg PO QAM 08/01/17 Reported Nitrostat (Nitroglycerin) 0.4 Mg Tab 0.4 Mg UT DIRECTED PRN 05/29/16 Reported Plavix (Clopidogrel Bisulfate) 75 Mg Tab 75 Mg PO QAM 05/29/16 Reported Lipitor (Atorvastatin Calcium) 80 Mg Tab 80 Mg PO QAM 05/29/16 Reported Aspirin EC Low Dose (Aspirin) 81 Mg Ectab 81 Mg PO QAM 05/29/16 Reported Vital Signs Weight (Kilograms): 110.45 Height (Feet): 5 Height (Inches): 7.5 Date Time Temp Pulse Resp B/P (MAP) Pulse Ox O2 Delivery O2 Flow Rate FiO2 09/06/17 13:04 36.7 78 20 110/77 (88) 97 Room Air Physical Exam General Appearance: WD/WN, no apparent distress Respiratory/Chest: Auscultation: breath sounds normal Cardiovascular: Heart Auscultation: RRR Abdomen: Bowel Sounds: normal Inspection & Palpation: soft, non-distended, no tenderness, guarding & rebound Assessment and Plan Assessment: 46 yo CF who presents for screening colonoscopy. Plan: Proceed with colonoscopy.
--- NOTE | 2017-09-06 14:02 | Discharge Instructions ---
Endoscopy Patient Instructions Date / Procedure(s) Performed Sep 06, 2017. Colonoscopy Allergy Information Coded Allergies: Adhesives (Verified Allergy, Unknown, HIVES, 08/24/17) Morphine (Verified Adverse Reaction, Unknown, GI UPSET, 09/06/17) Discharge Date / Findings Sep 06, 2017. Colon polyps Internal hemorrhoids Medication Instructions Stopped Medication(s): stopped Plavix on August 30,took ASA this am OK to resume all medications today as prescribed Reported Home Medications Medications Dose Route/Sig Max Daily Dose Days Date Category Ultram (Tramadol HCl) 50 Mg Tab 50-100 Mg PO Q4H PRN 08/24/17 Reported Lisinopril 2.5 Mg Tab 2.5 Mg PO QAM 08/24/17 Reported Prilosec (Omeprazole) 40 Mg Cap 40 Mg PO QAM 08/24/17 Reported [Vitamin B12] Unknown Strength Unknown Dose PO QAM 08/24/17 Reported Fish Oil ([place]-3 Fatty Acids) 1 Cap Cap 1 Cap PO QAM 08/24/17 Reported Vitamin D (Cholecalciferol) 1,000 Unit Tab 1 Tab PO QAM 08/24/17 Reported Multivitamin (Multiple Vitamin) 1 Tab Tab 1 Tab PO QAM 08/01/17 Reported Ventolin Hfa (Albuterol) 200 Puffs/86364 Mcg Aers 2-3 Puffs INH BID PRN 08/01/17 Reported Advair Hfa 230/21 Mcg (Fluticasone-Salmeterol 230/21 Mcg) 1 Aer Aer 2 Puffs INH BID 08/01/17 Reported Singulair (Montelukast Sodium) 10 Mg Tab 10 Mg PO QAM 08/01/17 Reported Celexa (Citalopram Hydrobromide) 20 Mg Tab 20 Mg PO QAM 08/01/17 Reported Cozaar (Losartan Potassium) 25 Mg Tab 25 Mg PO QAM 08/01/17 Reported Toprol Xl (Metoprolol Succinate) 25 Mg Tabcr 25 Mg PO QAM 08/01/17 Reported Levothyroxine Sodium 125 Mcg Tab 125 Mcg PO QAM 08/01/17 Reported Nitrostat (Nitroglycerin) 0.4 Mg Tab 0.4 Mg UT DIRECTED PRN 05/29/16 Reported Plavix (Clopidogrel Bisulfate) 75 Mg Tab 75 Mg PO QAM 05/29/16 Reported Lipitor (Atorvastatin Calcium) 80 Mg Tab 80 Mg PO QAM 05/29/16 Reported Aspirin EC Low Dose (Aspirin) 81 Mg Ectab 81 Mg PO QAM 05/29/16 Reported Provider Instructions Activity Restrictions - No exercising or heavy lifting for 24 hours. - Do not drink alcohol the day of the procedure. - Do not drive a car or operate machinery until the day after the procedure. - Do not make any important decisions or sign important papers in 24 hours after the procedure. Following Day: - Return to full activity which may include returning to work/school. Diet Start your diet with liquids and light foods (jello, soup, juice, toast). Then eat your usual diet if not nauseated. Treatment For Common After Affects For mild abdominal pain, bloating, or excessive gas: - Rest - Eat lightly - Lie on right side Follow-Up Information Follow-up with Dr. Angelita Barr as scheduled Anesthesia Information What You Should Know You have had a procedure that required some medicine to reduce anxiety and discomfort. This treatment is called moderate sedation. After receiving the treatment, you may be sleepy, but you will be able to breathe on your own. The effects of the treatment may last for several hours. Follow these instructions along with Activity/Diet recommendations noted above: * Do NOT do anything where dizziness or clumsiness would be dangerous. * Rest quietly at home today, then you can be up and about tomorrow. * Have a responsible person stay with you the rest of today. * You may have had an I.V. today. If so, you may take the dressing off later today. Recommendations Call your doctor if: * Trouble breathing * Continuous vomiting for more than 24 hours * Temperature above 101 degrees * Severe abdominal pain or bloating * Pain not relieved by pain medicine ordered * There is increased drainage or redness from any incision * A large amount of rectal bleeding greater than 2-3 tablespoons. (If you had a polyp/s removed or have hemorrhoids, a small amount of blood - from the rectum is to be expected.) * You have any unanswered questions or concerns. IN THE EVENT OF A SERIOUS EMERGENCY, GO TO THE NEAREST EMERGENCY ROOM Your discharge instructions were prepared by provider Carlin Granados. Patient Instructions Signature Page Lupe Guadalupe Patient (or Guardian) Signature/Date: I have read and understand the instructions given to me by my caregivers. Caregiver/RN/Doctor Signature/Date: The above-named patient and/or guardian has received patient instructions on this date. + Original Patient Signature Page (only) stays with chart. Please make copy for patient.
--- NOTE | 2017-09-06 14:14 | GI REPORT ---
Procedure Date: 09/06/2017 1:37 PM Procedure: Colonoscopy Indications: Screening for colorectal malignant neoplasm Medicines: Monitored Anesthesia Care Complications: No immediate complications. Estimated Blood Loss: Estimated blood loss: none. Procedure: Pre-Anesthesia Assessment: - Prior to the procedure, a History and Physical was performed, and patient medications and allergies were reviewed. The patient's tolerance of previous anesthesia was also reviewed. The risks and benefits of the procedure and the sedation options and risks were discussed with the patient. All questions were answered, and informed consent was obtained. Prior Anticoagulants: The patient last took Plavix (clopidogrel) 7 days prior to the procedure and last took aspirin on the day of the procedure. ASA Grade Assessment: III - A patient with severe systemic disease. After reviewing the risks and benefits, the patient was deemed in satisfactory condition to undergo the procedure. After I obtained informed consent, the scope was passed under direct vision. Throughout the procedure, the patient's blood pressure, pulse, and oxygen saturations were monitored continuously. The Scope was introduced through the anus and advanced to the terminal ileum. The colonoscopy was performed without difficulty. The patient tolerated the procedure fairly well. The quality of the bowel preparation was good. The terminal ileum, ileocecal valve, appendiceal orifice, and rectum were photographed. Findings: The perianal and digital rectal examinations were normal. A 3 mm polyp was found in the ascending colon. The polyp was sessile. The polyp was removed with a cold biopsy forceps. Resection and retrieval were complete. A 4 mm polyp was found in the transverse colon. The polyp was sessile. The polyp was removed with a cold snare. Resection and retrieval were complete. Non-bleeding internal hemorrhoids were found during retroflexion. The hemorrhoids were small. Impression: - One 3 mm polyp in the ascending colon, removed with a cold biopsy forceps. Resected and retrieved. - One 4 mm polyp in the transverse colon, removed with a cold snare. Resected and retrieved. - Non-bleeding internal hemorrhoids. Recommendation: - Resume previous diet. - Continue present medications. - Repeat colonoscopy for surveillance based on pathology results. - Return to primary care physician as previously scheduled. Carlin Granados DO 09/06/2017 2:14:10 PM This report has been signed electronically. Note Initiated On: 09/06/2017 1:37 PM I attest to the content of the Intraoperative Record and orders documented therein, exceptions below
[2017-09-06 14:30] VITALS: BP 171/67; PULSE 65; O2SAT 98
--- NOTE | 2017-09-06 14:39 | Anesthesiology Progress Note ---
Anesthesia Post Op Note Date & Time Sep 06, 2017 at 14:39 Vital Signs Pain Intensity: 0 Vital Signs Past 12 Hours Date Time Temp Pulse Resp B/P (MAP) Pulse Ox O2 Delivery O2 Flow Rate FiO2 09/06/17 14:30 65 18 171/67 (101) 98 Room Air 09/06/17 14:15 65 16 108/67 (81) 98 Room Air 09/06/17 14:00 69 16 107/61 (76) 98 Room Air 09/06/17 13:04 36.7 78 20 110/77 (88) 97 Room Air Notes Mental Status: alert / awake / arousable, participated in evaluation Pt Amnestic to Procedure: Yes Nausea / Vomiting: adequately controlled Pain: adequately controlled Airway Patency, RR, SpO2: stable & adequate BP & HR: stable & adequate Hydration State: stable & adequate Anesthetic Complications: no major complications apparent
== END | disposition home or self-care (01) ==
LOC: C.GI 12:30
PROVIDERS: ATTEND Internal Medicine
DX: Z12.11 Encounter for screening for malignant neoplasm of colon (principal); D12.2 Benign neoplasm of ascending colon; D12.3 Benign neoplasm of transverse colon; K64.8 Other hemorrhoids; I25.10 Atherosclerotic heart disease of native coronary artery without angina pectoris; I10 Essential (primary) hypertension; K21.9 Gastro-esophageal reflux disease without esophagitis; Z90.49 Acquired absence of other specified parts of digestive tract; Z88.5 Allergy status to narcotic agent; Z87.891 Personal history of nicotine dependence

== ENCOUNTER → 2017-10-01 | Outpatient (CLI) | payer OTHER ==
[~2017-10-01] MED LIST changes: -LIDOCAINE HCL 2% 2 ML VIAL (20MG/ML) ONE; -MIDAZOLAM HCL 1 MG/ML 2ML VIAL ONE; -PROPOFOL IV EMULSION 10 MG/ML 20 ML VIAL IV ONE; -SODIUM CHLORIDE 0.9% 500ML 500 ML IV ONE
== END | disposition home or self-care (01) ==
LOC: C.LABPBG 10:37
PROVIDERS: ATTEND Family Medicine
DX: E03.9 Hypothyroidism, unspecified (principal)

== ENCOUNTER 2017-10-09 03:12 | Observation (INO) | payer OTHER ==
[~2017-10-09] VITALS: Ht 172.7 cm; Wt 110.4 kg
[2017-10-09 03:38] LABS: BASO % 0.5 %; BASO ABS # 0.04 K/uL (0-0.2); EOS ABS # 0.25 K/uL (0-0.5); HEMATOCRIT 35.9 % (37-47); HEMOGLOBIN 11.9 g/dL (12.0-16.0); IG# 0.04 K/uL (0.00-0.02); LYMPH % 40.4 %; LYMPH ABS # 3.34 K/uL (1.2-3.4); MEAN CELL VOLUME 83.9 fL (80-100); MEAN CORPUSCULAR HEMOGLOBIN 27.8 pg (25-34); MEAN CORPUSCULAR HGB CONC 33.1 g/dl (32-36); MEAN PLATELET VOLUME 9.3 fL (7.4-10.4); MONO % 6.7 %; MONO ABS # 0.55 K/uL (0.11-0.59); NEUT % 48.9 %; NEUT ABS # 4.05 K/uL (1.4-6.5); PLATELET COUNT 238 K/uL (130-400); RED CELL DISTRIBUTION WIDTH SD 46.4 fL (36.4-46.3); WHITE BLOOD COUNT 8.27 K/uL (4.8-10.8)
[2017-10-09] MEDS ORDERED: LEVO112T4 PO (03:43)
[2017-10-09] MEDS ORDERED: ONDANSETRON INJ 2 MG/ML 2 ML VIAL IV STA (03:52)
[2017-10-09] MEDS ORDERED: SODIUM CHLORIDE 0.9% 500ML 500 ML IV STA ×2 (03:52→06:51)
[2017-10-09] MEDS ORDERED: FENTANYL CITRATE INJ 50 MCG/1 ML 2 ML VIAL IV STA ×2 (03:57→05:56)
[2017-10-09] MEDS ORDERED: NITROGLYCERIN 2% OINTMENT 30GM TUBE EXT ONE (04:00)
[2017-10-09 04:07] LABS: INR 0.9 (0.9-1.1)
[2017-10-09 04:17] LABS: ALBUMIN 3.4 gm/dl (3.4-5.0); ALKALINE PHOSPHATASE 131 U/L (45-117); ALT/SGPT 32 U/L (12-78); AST/SGOT 20 U/L (15-37); BLOOD UREA NITROGEN 12 mg/dl (7-18); CALCIUM 8.5 mg/dl (8.5-10.1); CARBON DIOXIDE 27 mmol/L (21-32); CREATININE 1.05 mg/dl (0.60-1.20); GLUCOSE 106 mg/dl (70-99); LIPASE 174 U/L (73-393); SODIUM 140 mmol/L (136-145); TOTAL PROTEIN 7.6 gm/dl (6.4-8.2)
[2017-10-09] MEDS ORDERED: OPTIRAY 320 IV PRN (05:45)
[2017-10-09] MEDS ORDERED: ACETAMINOPHEN 500 MG TAB PO STA (06:50)
--- NOTE | 2017-10-09 07:28 | DIAGNOSTIC IMAGING REPORT ---
CHEST CTA for PULMONARY ARTERIES CT DOSE: 613.24 mGy.cm HISTORY: Atypical chest pain. Short of breath. TECHNIQUE: Multiaxial CT images of the chest were performed following the intravenous administration of contrast to evaluate the pulmonary arteries. Maximal intensity projection images were also obtained. A dose lowering technique was utilized adhering to the principles of ALARA. COMPARISON STUDY: Chest CTA 08/01/2017. FINDINGS: Normal caliber thoracic aorta with no evidence for dissection. No pleural or pericardial effusions. No filling defects within the pulmonary arteries to suggest pulmonary embolus. No mediastinal or hilar lymphadenopathy. The visualized liver and spleen are unremarkable. Cholecystectomy. No fractures within the visualized osseous structures. No pneumothorax. Mosaic attenuation within the lungs. This suggests air trapping. IMPRESSION: 1. No evidence for pulmonary embolus. 2. Mosaic attenuation within the lungs suggestive of air trapping. This may be due to small airways disease. Electronically signed by: Frank Cruz M.D. 10/09/2017 7:26 AM Dictated Date/Time: 10/09/2017 7:22 AM
[2017-10-09] MEDS ORDERED: ASPIRIN/ALUM/MAGNES/CAL CARB 325 MG TAB PO STA (07:48)
--- NOTE | 2017-10-09 07:48 | DIAGNOSTIC IMAGING REPORT ---
CHEST ONE VIEW PORTABLE HISTORY: Left-sided chest pain COMPARISON: Chest 08/01/2017. FINDINGS: No pleural effusions. No pneumothorax. The heart remains borderline enlarged. Chronic interstitial thickening persists. No new focal lung consolidations. No evidence for pulmonary edema. IMPRESSION: No significant change compared to the prior study. No acute process. Electronically signed by: Frank Cruz M.D. 10/09/2017 7:46 AM Dictated Date/Time: 10/09/2017 7:45 AM
[2017-10-09] MEDS ORDERED: PANTOprazole SOD 40 MG TAB PO STA (07:49)
--- NOTE | 2017-10-09 08:10 | EMERGENCY ROOM VISIT NOTE ---
History Report prepared by Rona: Cornelia Monet Under the Supervision of: Dr. Dayna Milan D.O. First contact with patient: 03:17 Chief Complaint: CHEST PAIN Stated Complaint: CHEST PAIN,HEADACHE,TAKEN 2 NITRO History of Present Illness The patient is a 46 year old female who presents to the Emergency Room with complaints of sudden chest pain starting 2 hours ago. The patient states that the pain woke her up out of her sleep and felt like a sharp pain. She states that it was off to the left side and made her left arm feel numb and heavy. She states that her pain was originally a 10/10 in severity, but dropped to a 5/10 in severity after taking 2 Nitroglycerin. She reports that she has had this before, but not this severe. She reports that she last had it a year ago. The patient notes that she has a history of a stent and a heart attack. She reports that she did not even know that she was having a heart attack when she was having one and it felt like heart burn when she needed the stent placed. The patient complains of a headache, shortness of breath, and nausea. Pt states headache started after she took the nitro at home. She notes that earlier in the day she felt foggy, but attributed it to being tired. The patient denies recent change in medications, change in activity, recent illness, cough, dizziness, lightheadedness, vomiting, back pain, abdominal pain, change in bowel movements, leg swelling, and pain worsening with change of position. The patient notes that she saw her executive staff assistant a few months ago. She reports that they performed a stress test and echo that were not concerning. The patient note that she has had increased stress because her mother has been ill, but has never had chest pain from it. Source of History: patient Onset: 2 hours ago Position: chest Symptom Intensity: 5/10 Quality: sharp Timing: other (sudden) Modifying Factors (Relieving): other (Nitroglycerin) Associated Symptoms: + headache, + SOB, + nausea, + numbness, No cough, No vomiting, No abdominal pain, No back pain Note: The patient complains of her left arm feeling heavy. The patient denies dizziness, lightheadedness, change in bowel movements, leg swelling, and pain worsening with change of position. Review of Systems See HPI for pertinent positives & negatives. A total of 10 systems reviewed and were otherwise negative. Past Medical & Surgical Medical Problems: (1) NSTEMI (non-ST elevated myocardial infarction) Surgical Problems: (1) H/O breast surgery (2) H/O rotator cuff surgery (3) H/O tubal ligation (4) S/P coronary artery stent placement Family History Heart disease Social History Smoking Status: Former Smoker Alcohol Use: occasionally Drug Use: none Marital Status: Housing Status: lives with family Occupation Status: employed Current/Historical Medications Scheduled Aspirin (Aspirin EC Low Dose), 81 MG PO QAM Atorvastatin (Lipitor), 80 MG PO QAM Cholecalciferol (Vitamin D), 1 TAB PO QAM Citalopram Hydrobromide (Celexa), 20 MG PO QAM Clopidogrel (Plavix), 75 MG PO QAM Fluticasone-Salmeterol 230/21 Mcg (Advair Hfa 230/21 Mcg), 2 PUFFS INH BID Levothyroxine Sodium (Levothyroxine Sodium), 112 MCG PO DAILY Lisinopril (Lisinopril), 2.5 MG PO QAM Losartan Potassium (Cozaar), 25 MG PO QAM Metoprolol Succinate (Toprol Xl), 25 MG PO QAM Montelukast Sodium (Singulair), 10 MG PO QAM Multiple Vitamin (Multivitamin), 1 TAB PO QAM [place]-3 Fatty Acids (Fish Oil), 1 CAP PO QAM Omeprazole (Prilosec), 40 MG PO QAM [Vitamin B12], Unknown Dose PO QAM Scheduled PRN Albuterol Hfa (Ventolin Hfa), 2-3 PUFFS INH BID PRN for Shortness of Breath Nitroglycerin (Nitrostat), 0.4 MG UT DIRECTED PRN for chest pain Tramadol (Ultram), 50-100 MG PO Q4H PRN for Pain Allergies Coded Allergies: Adhesives (Verified Allergy, Unknown, HIVES, 10/09/17) Morphine (Verified Adverse Reaction, Unknown, GI UPSET, 10/09/17) Physical Exam Vital Signs Date Time Temp Pulse Resp B/P (MAP) Pulse Ox O2 Delivery O2 Flow Rate FiO2 10/09/17 08:32 68 14 112/62 96 Room Air 10/09/17 08:00 67 12 122/78 95 5/22/18 07:50 57 10/09/17 07:47 59 14 130/79 96 Room Air 10/09/17 07:30 62 12 94/65 96 Room Air 10/09/17 07:16 64 16 103/45 95 Room Air 10/09/17 06:01 114/64 10/09/17 05:54 66 16 94 10/09/17 05:36 65 17 112/65 98 Room Air 10/09/17 05:35 112/65 10/09/17 05:24 68 16 93 10/09/17 04:54 65 16 95 10/09/17 04:19 112/75 10/09/17 04:12 67 16 96 10/09/17 03:42 67 16 96 10/09/17 03:29 66 10/09/17 03:20 146/80 10/09/17 03:20 96 Room Air 10/09/17 03:13 36.7 80 18 126/73 95 Room Air Physical Exam GENERAL: alert, uncomfortable appearing, well nourished, no distress, non-toxic EYE EXAM: normal conjunctiva, PERRL and EOM's grossly intact OROPHARYNX: no exudate, no erythema, lips, buccal mucosa, and tongue normal and mucous membranes are moist NECK: supple, no nuchal rigidity, no adenopathy, non-tender LUNGS: Clear to auscultation. Normal chest wall mechanics. no wheezes, rhonchi, or rales. HEART: no murmurs, S1 normal and S2 normal CHEST: No reproducible chest wall tenderness. ABDOMEN: abdomen soft, non-tender, normo-active bowel sounds, no masses, no rebound or guarding. BACK: Back is symmetrical on inspection and there is no deformity, no midline tenderness, no CVA tenderness. SKIN: no rashes and no bruising UPPER EXTREMITIES: upper extremities are grossly normal. LOWER EXTREMITIES: No pitting edema. NEURO EXAM: Normal sensorium, cranial nerves II-XII grossly intact, normal speech, no gross weakness of arms, no gross weakness of legs. Medical Decision & Procedures ER Provider Diagnostic Interpretation: Radiology results have been interpreted by the radiologist and reviewed by me. CHEST X-RAY: The results were interpreted by me. No cardiomegaly. No effusions. No wide mediastinum. No consolidation. No acute pulmonary edema. Unchanged compared to prior. CHEST CTA for PULMONARY ARTERIES CT DOSE: 613.24 mGy.cm HISTORY: Atypical chest pain. Short of breath. TECHNIQUE: Multiaxial CT images of the chest were performed following the intravenous administration of contrast to evaluate the pulmonary arteries. Maximal intensity projection images were also obtained. A dose lowering technique was utilized adhering to the principles of ALARA. COMPARISON STUDY: Chest CTA 08/01/2017. FINDINGS: Normal caliber thoracic aorta with no evidence for dissection. No pleural or pericardial effusions. No filling defects within the pulmonary arteries to suggest pulmonary embolus. No mediastinal or hilar lymphadenopathy. The visualized liver and spleen are unremarkable. Cholecystectomy. No fractures within the visualized osseous structures. No pneumothorax. Mosaic attenuation within the lungs. This suggests air trapping. IMPRESSION: 1. No evidence for pulmonary embolus. 2. Mosaic attenuation within the lungs suggestive of air trapping. This may be due to small airways disease. Electronically signed by: Frank Cruz M.D. 10/09/2017 7:26 AM Dictated Date/Time: 10/09/2017 7:22 AM Laboratory Results 10/09/17 03:27 Red Blood Count 4.28, Mean Corpuscular Volume 83.9, Mean Corpuscular Hemoglobin 27.8, Mean Corpuscular Hemoglobin Concent 33.1, Mean Platelet Volume 9.3, Neutrophils (%) (Auto) 48.9, Lymphocytes (%) (Auto) 40.4, Monocytes (%) (Auto) 6.7, Eosinophils (%) (Auto) 3.0, Basophils (%) (Auto) 0.5, Neutrophils # (Auto) 4.05, Lymphocytes # (Auto) 3.34, Monocytes # (Auto) 0.55, Eosinophils # (Auto) 0.25, Basophils # (Auto) 0.04 10/09/17 03:27 Test 10/09/17 03:27 10/09/17 08:08 White Blood Count 8.27 K/uL (4.8-10.8) Red Blood Count 4.28 M/uL (4.2-5.4) Hemoglobin 11.9 g/dL (12.0-16.0) Hematocrit 35.9 % (37-47) Mean Corpuscular Volume 83.9 fL (80-100) Mean Corpuscular Hemoglobin 27.8 pg (25-34) Mean Corpuscular Hemoglobin Concent 33.1 g/dl (32-36) Platelet Count 238 K/uL (130-400) Mean Platelet Volume 9.3 fL (7.4-10.4) Neutrophils (%) (Auto) 48.9 % Lymphocytes (%) (Auto) 40.4 % Monocytes (%) (Auto) 6.7 % Eosinophils (%) (Auto) 3.0 % Basophils (%) (Auto) 0.5 % Neutrophils # (Auto) 4.05 K/uL (1.4-6.5) Lymphocytes # (Auto) 3.34 K/uL (1.2-3.4) Monocytes # (Auto) 0.55 K/uL (0.11-0.59) Eosinophils # (Auto) 0.25 K/uL (0-0.5) Basophils # (Auto) 0.04 K/uL (0-0.2) RDW Standard Deviation 46.4 fL (36.4-46.3) RDW Coefficient of Variation 15.0 % (11.5-14.5) Immature Granulocyte % (Auto) 0.5 % Immature Granulocyte # (Auto) 0.04 K/uL (0.00-0.02) Prothrombin Time 9.3 SECONDS (9.0-12.0) Prothromb Time International Ratio 0.9 (0.9-1.1) D-Dimer 1320 ug/L FEU (0-500) Anion Gap 6.0 mmol/L (3-11) Est Creatinine Clear Calc Drug Dose 85.9 ml/min Estimated GFR () 72.7 Estimated GFR (Non- 62.8 BUN/Creatinine Ratio 11.3 (10-20) Calcium Level 8.5 mg/dl (8.5-10.1) Magnesium Level 2.1 mg/dl (1.8-2.4) Total Bilirubin 0.2 mg/dl (0.2-1) Aspartate Amino Transf (AST/SGOT) 20 U/L (15-37) Alanine Aminotransferase (ALT/SGPT) 32 U/L (12-78) Alkaline Phosphatase 131 U/L (45-117) Pro-B-Type Natriuretic Peptide 115 pg/ml (0-450) Total Protein 7.6 gm/dl (6.4-8.2) Albumin 3.4 gm/dl (3.4-5.0) Globulin 4.2 gm/dl (2.5-4.0) Albumin/Globulin Ratio 0.8 (0.9-2) Lipase 174 U/L (73-393) Bedside Troponin I < 0.030 ng/ml (0-0.045) Laboratory results per my review. Medications Administered Medications (Trade) Dose Ordered Sig/Jem Route Start Time Stop Time Status Last Admin Dose Admin Ondansetron HCl (Zofran Inj) 4 mg NOW STAT IV 10/09/17 03:52 10/09/17 03:53 DC 10/09/17 04:14 4 MG Nitroglycerin (Nitroglycerin 2% Oint) 1 inch NOW ONCE EXT 10/09/17 04:00 10/09/17 04:01 DC 10/09/17 04:15 1 INCH Sodium Chloride 500 ml @ 999 mls/hr Q31M STAT IV 10/09/17 03:52 10/09/17 04:25 DC 10/09/17 04:14 999 MLS/HR Fentanyl Citrate (Fentanyl Inj) 50 mcg NOW STAT IV 10/09/17 03:57 10/09/17 03:58 DC 10/09/17 04:14 50 MCG Fentanyl Citrate (Fentanyl Inj) 100 mcg NOW STAT IV 10/09/17 05:56 10/09/17 05:57 DC 10/09/17 06:03 100 MCG Acetaminophen (Tylenol Tab) 1,000 mg NOW STAT PO 10/09/17 06:50 10/09/17 06:51 DC 10/09/17 07:17 1,000 MG Sodium Chloride 500 ml @ 999 mls/hr Q31M STAT IV 10/09/17 06:51 10/09/17 07:21 DC 10/09/17 06:51 999 MLS/HR Aspirin/Aluminum/ Magnesium/Ca Carb (Ascriptin Tab) 325 mg NOW STAT PO 10/09/17 07:48 10/09/17 07:50 DC 10/09/17 08:22 325 MG Pantoprazole Sodium (Protonix Tab) 40 mg NOW STAT PO 10/09/17 07:49 10/09/17 07:51 DC 10/09/17 08:22 40 MG Al Hydroxide/Mg Hydroxide (Maalox Susp) 30 ml STK-MED ONCE .ROUTE 10/09/17 08:27 10/09/17 08:28 DC 10/09/17 08:30 30 ML Lidocaine HCl (Viscous Lidocaine 2% Soln) 20 ml STK-MED ONCE .ROUTE 10/09/17 08:27 10/09/17 08:28 DC 10/09/17 08:30 20 ML Tramadol HCl (Ultram Tab) 50 mg NOW STAT PO 10/09/17 08:38 10/09/17 08:51 DC 10/09/17 09:17 50 MG ECG Per My Interpretation Indication: chest pain Rate (beats per minute): 68 Rhythm: sinus rhythm Findings: no acute ischemic change, no ectopy, other (normal axis, normal intervals) ED Course 0319: The patient was evaluated in room B2. A complete history and physical exam was performed. 0352: Ordered NSS 500 ml @ 999 mls/hr IV, Zofran Inj 4 mg IV. 0357: Ordered Fentanyl Inj 50 mcg IV. 0400: Ordered Nitroglycerin 1 inch EXT. 0422: I reevaluated the patient and she still looks uncomfortable. She states that she still has heaviness in her chest and feels like she cannot get enough air. 0556: Ordered Fentanyl Inj 100 mcg IV. 0650: Ordered Tylenol Tab 1000 mg PO. 0651: Ordered NSS 500 ml @ 999 mls/hr IV. 0731: I reevaluated the patient and she still has a pressure in her chest, but it is much better. She reports that her breathing is better. She tells me that she stopped taking Plavix on Sunday because she is supposed to have an endoscopy done on . 0746: I reviewed the patient's case with Dr. Thomas- [facility]. He will evaluate the patient for further management. Medical Decision Differential diagnoses includes but is not limited to acute coronary syndrome, myocardial infarction, pericarditis, pulmonary embolus, aortic dissection, pneumonia, pneumothorax, musculoskeletal, shingles, esophageal. Patient improved here although did not experience complete resolution of her symptoms. Given her significant cardiac history already at such young age, concern for evolving ACS. I feel patient's headache most likely secondary to her use of nitro she did not have a headache preceding that. No evidence of PE or other vascular pathology. I do not suspect occult infectious etiology. First troponin negative, however I feel patient is high risk for another cardiac event and should be monitored for serial enzymes and possible additional cardiology evaluation. Patient does take aspirin and Plavix although had recently stopped taking her Plavix due to an impending procedure. It is unclear if this contributed to her episode tonight. Patient does also describe recent increased stress as well as a history of a hiatal hernia which could contribute to chest pain also. Patient was given additional dose of the PPI as a precaution. Patient stated that her chest pain was improved although she still felt slight pressure, she no longer had any left upper extremity pain or any trouble breathing. Patient hemodynamically stable throughout. Medication Reconcilliation Current Medication List: was personally reviewed by me Blood Pressure Screening Patient's blood pressure: Normal blood pressure Will be further monitored by the hospitalist. Consults Time Called: 07 Consulting Physician: Dr. Teressa PARADA Hospitalist Returned Call: 07 I reviewed the patient's case with Dr. Teressa PARADA Hospitalist. He will evaluate the patient for further management. Impression Primary Impression: Chest pain Additional Impression: Dyspnea Scribe Attestation The scribe's documentation has been prepared under my direction and personally reviewed by me in its entirety. I confirm that the note above accurately reflects all work, treatment, procedures, and medical decision making performed by me. Departure Information Dispostion Being Evaluated By Hospitalist Referrals Angelita Barr DO (PCP) Patient Instructions My [facility] Problem Qualifiers Primary Impression: Chest pain Chest pain type: unspecified Qualified Codes: R07.9 - Chest pain, unspecified Additional Impression: Dyspnea Dyspnea type: shortness of breath Qualified Codes: R06.02 - Shortness of breath
[2017-10-09] MEDS ORDERED: LIDOCAINE HCL 2% VISC SOLN 20 ML UDC ONE (08:27)
[2017-10-09] MEDS ORDERED: ALUMINUM/MAGNESIUM SUSP 30 ML UDC ONE (08:27)
[2017-10-09] MEDS ORDERED: TRAMADOL HCL 50 MG TAB PO STA (08:38)
[2017-10-09] MEDS ORDERED: NITROGLYCERIN 0.4 MG SL PER TAB CHARGE SL PRN (08:45)
[2017-10-09] MEDS ORDERED: ONDANSETRON INJ 2 MG/ML 2 ML VIAL IV PRN (08:45)
[2017-10-09] MEDS ORDERED: LISINOPRIL 2.5 MG TAB PO SCH (09:00)
--- NOTE | 2017-10-09 09:07 | History and Physical ---
History & Physical Date & Time of Service: October 09, 2017 at 08:02 Chief Complaint: Chest Pain,Headache,Taken 2 Nitro Primary Care Physician: Angelita Barr DO History of Present Illness Source: patient 46yo female with known CAD s/p LAD stent in 04/2016 who presents this AM with chest pain that began sometime between 0130 and 0200. The pain woke her from sleep. When she went to bed last evening she "felt fine." The pain was located in the left breast area and radiated into the upper portion of the left arm. She had associated dyspnea with nausea and diaphoresis. No palpitations. She took nitroglycerin SL with relief of symptoms. She took a total of 2 SL nitros. The pain didn't resolve completely and a friend of hers that is a nurse encouraged her to come to the ER. Upon presentation she continued with chest pain and was given nitropaste and fentanyl with full resolution of symptoms. Her only present complaint during my evaluation is that of headache from the nitroglycerin. Over the last few weeks she has had some upper GI symptoms including nausea, frequent burping, and reflux symptoms. She has not had chest pain. She was scheduled to have an outpatient EGD with Dr. Hernández at [facility] on of this week. She was holding her plavix in preparation for the EGD but HAS BEEN taking her aspirin. Her symptoms today feel different than when she had her ACS and stent in 2015. Then her pain was central and had "severe heartburn"; today the pain is left- sided in location. Past Medical/Surgical History PMH: 1. CAD s/p LAD stent 04/2016 2. stress test 2017 negative; follows with Dr. Murray 3. hyperlipidemia 4. morbid obesity with BMI 37 5. hypothyroidism 6. hiatal hernia 7. 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 ) Allergies Coded Allergies: Adhesives (Verified Allergy, Unknown, HIVES, 10/09/17) Morphine (Verified Adverse Reaction, Unknown, GI UPSET, 10/09/17) Home Medications Scheduled Aspirin (Aspirin EC Low Dose), 81 MG PO QAM Atorvastatin (Lipitor), 80 MG PO QAM Cholecalciferol (Vitamin D), 1 TAB PO QAM Citalopram Hydrobromide (Celexa), 20 MG PO QAM Clopidogrel (Plavix), 75 MG PO QAM Fluticasone-Salmeterol 230/21 Mcg (Advair Hfa 230/21 Mcg), 2 PUFFS INH BID Levothyroxine Sodium (Levothyroxine Sodium), 112 MCG PO DAILY Lisinopril (Lisinopril), 2.5 MG PO QAM Losartan Potassium (Cozaar), 25 MG PO QAM Metoprolol Succinate (Toprol Xl), 25 MG PO QAM Montelukast Sodium (Singulair), 10 MG PO QAM Multiple Vitamin (Multivitamin), 1 TAB PO QAM [place]-3 Fatty Acids (Fish Oil), 1 CAP PO QAM Omeprazole (Prilosec), 40 MG PO QAM [Vitamin B12], Unknown Dose PO QAM Scheduled PRN Albuterol Hfa (Ventolin Hfa), 2-3 PUFFS INH BID PRN for Shortness of Breath Nitroglycerin (Nitrostat), 0.4 MG UT DIRECTED PRN for chest pain Tramadol (Ultram), 50-100 MG PO Q4H PRN for Pain Review of Systems Constitutional: + problem reported (weight gain of 100 pounds over last 12 months), No fever, No chills, No weight loss ENT: + problem reported (hoarse voice - chronic), No nasal symptoms, No sore throat, No trouble swallowing Respiratory: + cough (several days/week), + wheezing (several days/week) Cardiovascular: + chest pain, No orthopnea, No PND, No edema Abdomen: No pain, No vomiting, No diarrhea, No constipation, No GI bleeding Musculoskeletal: No joint pain, No muscle pain Genitourinary - Female: + problem reported (2015 - menopause ), No dysuria, No hematuria Neurologic: + numbness/tingling (left arm now resolved) Psychiatric: No depression symptoms, No anxiety Endocrine: No fatigue Hematologic / Lymphatic: + abnormal bleeding/bruising Integumentary: + rash (allergic type rashes) Physical Exam Vital Signs Date Time Temp Pulse Resp B/P (MAP) Pulse Ox O2 Delivery O2 Flow Rate FiO2 10/09/17 07:50 57 10/09/17 07:30 62 12 94/65 96 Room Air 10/09/17 07:16 64 16 103/45 95 Room Air 10/09/17 06:01 114/64 10/09/17 05:54 66 16 94 10/09/17 05:36 65 17 112/65 98 Room Air 10/09/17 05:35 112/65 10/09/17 05:24 68 16 93 10/09/17 04:54 65 16 95 10/09/17 04:19 112/75 10/09/17 04:12 67 16 96 10/09/17 03:42 67 16 96 10/09/17 03:29 66 10/09/17 03:20 146/80 10/09/17 03:20 96 Room Air 10/09/17 03:13 36.7 80 18 126/73 95 Room Air General Appearance: + mild distress (holding head due to headache), + obese Head: normocephalic, atraumatic Eyes: normal inspection, PERRL ENT: hearing grossly normal, TMs normal, pharynx normal Neck: supple, no adenopathy, thyroid normal, no JVD, no carotid bruits, trachea midline Respiratory/Chest: no respiratory distress, no accessory muscle use, + wheezing (scant end-exp wheeze with forced breaths, coughs during the lung exam), + pertinent finding (minimally tender over left upper chest w/ palpation) Cardiovascular: regular rate, rhythm, no gallop, no murmur, normal peripheral pulses Abdomen/GI: normal bowel sounds, soft, no organomegaly, + tenderness ( epigastric region with deep palpation) Back: normal inspection Extremities/Musculoskelatal: no pedal edema Neurologic/Psych: no motor/sensory deficits, alert, normal mood/affect, normal reflexes, oriented x 3 Skin: no rash Lymphatic: no adenopathy (no cervical LAD) Diagnostics Laboratory Results Results Past 24 Hours Test 10/09/17 03:27 Range/Units White Blood Count 8.27 4.8-10.8 K/uL Red Blood Count 4.28 4.2-5.4 M/uL Hemoglobin 11.9 12.0-16.0 g/dL Hematocrit 35.9 37-47 % Mean Corpuscular Volume 83.9 80-100 fL Mean Corpuscular Hemoglobin 27.8 25-34 pg Mean Corpuscular Hemoglobin Concent 33.1 32-36 g/dl Platelet Count 238 130-400 K/uL Mean Platelet Volume 9.3 7.4-10.4 fL Neutrophils (%) (Auto) 48.9 % Lymphocytes (%) (Auto) 40.4 % Monocytes (%) (Auto) 6.7 % Eosinophils (%) (Auto) 3.0 % Basophils (%) (Auto) 0.5 % Neutrophils # (Auto) 4.05 1.4-6.5 K/uL Lymphocytes # (Auto) 3.34 1.2-3.4 K/uL Monocytes # (Auto) 0.55 0.11-0.59 K/uL Eosinophils # (Auto) 0.25 0-0.5 K/uL Basophils # (Auto) 0.04 0-0.2 K/uL RDW Standard Deviation 46.4 36.4-46.3 fL RDW Coefficient of Variation 15.0 11.5-14.5 % Immature Granulocyte % (Auto) 0.5 % Immature Granulocyte # (Auto) 0.04 0.00-0.02 K/uL Prothrombin Time 9.3 9.0-12.0 SECONDS Prothromb Time International Ratio 0.9 0.9-1.1 D-Dimer 1320 0-500 ug/L FEU Sodium Level 140 136-145 mmol/L Potassium Level 4.0 3.5-5.1 mmol/L Chloride Level 107 98-107 mmol/L Carbon Dioxide Level 27 21-32 mmol/L Anion Gap 6.0 3-11 mmol/L Blood Urea Nitrogen 12 7-18 mg/dl Creatinine 1.05 0.60-1.20 mg/dl Est Creatinine Clear Calc Drug Dose 85.9 ml/min Estimated GFR () 72.7 Estimated GFR (Non- 62.8 BUN/Creatinine Ratio 11.3 10-20 Random Glucose 106 70-99 mg/dl Calcium Level 8.5 8.5-10.1 mg/dl Magnesium Level 2.1 1.8-2.4 mg/dl Total Bilirubin 0.2 0.2-1 mg/dl Aspartate Amino Transf (AST/SGOT) 20 15-37 U/L Alanine Aminotransferase (ALT/SGPT) 32 12-78 U/L Alkaline Phosphatase 131 45-117 U/L Troponin I < 0.015 0-0.045 ng/ml Pro-B-Type Natriuretic Peptide 115 0-450 pg/ml Total Protein 7.6 6.4-8.2 gm/dl Albumin 3.4 3.4-5.0 gm/dl Globulin 4.2 2.5-4.0 gm/dl Albumin/Globulin Ratio 0.8 0.9-2 Lipase 174 73-393 U/L Diagnostic Radiology CTA chest - IMPRESSION: 1. No evidence for pulmonary embolus. 2. Mosaic attenuation within the lungs suggestive of air trapping. This may be due to small airways disease. EKG EKG - my reading - NSR, no ST changes except mild J-point elevation in lead AVF (has had this on prior EKGs), old Q waves anteroseptal leads Impression Assessment and Plan 46yo female with known CAD s/p LAD stent in 04/2016, asthma 2nd to occupational chemical exposure, morbid obesity w/ BMI 37, and hypothyroidism presenting with chest pain starting early this AM and resolving in the ER. 1. chest pain - thus far there are no signs of ACS - EKG is unchanged from prior EKG, troponin x 2 are negative, and CTA chest is negative for PE/etc. She had a negative/normal stress echocardiogram in August 2017 as an outpatient [address] Dr. Murray. She has been compliant with all cardiac medications. Over the last few weeks she has been having significant GERD/gastritis type symptoms and was scheduled for EGD this in [place]. If cardiac work-up is negative I suspect her symptoms are GI in origin. Will obtain 1 more troponin at [address] on telemetry. Cont asa, beta jenn, statin. I have spoken with Dr. Murray, her primary business applications specialist, who will see her in consult. Will hold plavix since she more than likely will end up needing EGD during this hospitalization or later this week as previously scheduled. Hold off on any additional cardiac testing unless recommended by Dr. Murray. 2. GERD/gastritis (suspected) - in the ER I gave a GI cocktail which helped her epigastric discomfort. Will increase her PPI to BID dosing. Add carafate 1gm ac/hs. May need GI consultation if cardiac w/u is negative. Leave NPO until all symptoms improve this AM. 3. hypothyroidism - TSH just a few weeks ago was normal. Cont synthroid same dose. 4. HTN - will need to check outpatient record as she reports using both an ANIKA and ARB. 5. morbid obesity w/ BMI 37.5 6. asthma - albuterol 2 puffs qid. Cont advair BID. 7. hyperlipidemia - check lipids and hemoglobin a1c in am; cont statin agent. 8. headache - 2nd to nitroglycerin - tramadol 50mg po x 1 now. code status - level 1 full code Resuscitation Status VTE Prophylaxis Will order VTE Prophylaxis: Yes Note total visit time about 70 minutes patient to be placed on observation status Additional Copies To Angelita Barr DO; Fan Murray M.D.
[2017-10-09] MEDS: TRAMADOL HCL 50 MG TAB PO PRN (09:17)
[2017-10-09 09:37] VITALS: BP 122/79; PULSE 57; TEMP 36.5; O2SAT 96; Ht 172.7 cm; Wt 110.4 kg
[2017-10-09] MEDS: LEVOTHYROXINE 112 MCG TAB PO SCH (10:00)
[2017-10-09] MEDS ORDERED: ENOXAPARIN 40 MG/0.4 ML SYR SC SCH ×2 (10:00→21:00)
[2017-10-09 10:30] VITALS: BP 120/76; PULSE 64
[2017-10-09] MEDS: FLUTICASONE/SALMETEROL 250/50 (ADVAIR) 14 PUFF/1 INHALER INH SCH ×2 (10:33→20:20)
[2017-10-09] MEDS: MULTIVITAMIN TAB PO SCH (10:34)
[2017-10-09] MEDS: CHOLECALCIFEROL 1000 INTER.UNIT TAB PO SCH (10:34)
[2017-10-09] MEDS: ASPIRIN 81 MG ECTAB PO SCH (10:34)
[2017-10-09] MEDS: LOSARTAN POTASSIUM 25 MG TAB PO SCH (10:35)
[2017-10-09] MEDS: CITALOPRAM 20 MG TAB PO SCH (10:35)
[2017-10-09] MEDS: MONTELUKAST SOD 10 MG TAB PO SCH (10:35)
[2017-10-09] MEDS: METOPROLOL SUCC 25MG EXT REL TAB PO SCH (10:35)
[2017-10-09] MEDS: ATORVASTATIN 40 MG TAB PO SCH (10:36)
[2017-10-09] MEDS: SUCRALFATE 1 GM/10 ML UDC PO SCH ×3 (10:37→20:20)
[2017-10-09] MEDS ORDERED: NURSING VERBAL MED ORDER ONE (10:45)
[2017-10-09] MEDS ORDERED: ALBUTEROL HFA 8 GM INHALER INH PRN (11:00)
[2017-10-09] MEDS ORDERED: IV FLUIDS COMPLETED PRN (11:15)
[2017-10-09 11:29] VITALS: BP 113/77; PULSE 56; TEMP 36.4; O2SAT 95
[2017-10-09] MEDS: ACETAMINOPHEN 325 MG TAB PO PRN ×2 (11:35→19:33)
[2017-10-09] MEDS ORDERED: ALBUTEROL HFA 8 GM INHALER INH SCH (12:00)
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
[2017-10-09 14:58] VITALS: BP 100/66; PULSE 72; TEMP 36.3; O2SAT 96
[2017-10-09] MEDS ORDERED: KETOROLAC TROMETHAMINE 30 MG/ML VIAL IV STA (20:06)
[2017-10-09 20:09] VITALS: BP 107/70; PULSE 62; TEMP 36.7; O2SAT 94
[2017-10-09] MEDS ORDERED: BUTALBITAL/ACETAMIN/CAFFEINE TAB PO PRN (20:15)
[2017-10-09] MEDS: PANTOprazole SOD 40 MG TAB PO SCH (20:20)
[2017-10-09] MEDS ORDERED: ONDANSETRON INJ 8 MG in DEXTROSE 5% 50ML 50 ML IV ONE (20:30)
[2017-10-09 23:39] VITALS: BP 90/57; PULSE 72; TEMP 36.7; O2SAT 96
[2017-10-10 04:08] VITALS: BP 101/66; PULSE 62; TEMP 36.5; O2SAT 96
[2017-10-10] MEDS: SUCRALFATE 1 GM/10 ML UDC PO SCH ×2 (06:01→11:05)
[2017-10-10] MEDS: LEVOTHYROXINE 112 MCG TAB PO SCH (06:01)
[2017-10-10] MEDS: TRAMADOL HCL 50 MG TAB PO PRN (06:06)
[2017-10-10 07:13] LABS: BLOOD UREA NITROGEN 14 mg/dl (7-18); CALCIUM 8.8 mg/dl (8.5-10.1); CARBON DIOXIDE 28 mmol/L (21-32); CHOLESTEROL 158 mg/dl (0-200); CREATININE 1.01 mg/dl (0.60-1.20); GLUCOSE 98 mg/dl (70-99); LDL CHOLESTEROL CALCULATED 48 mg/dl; POTASSIUM 4.3 mmol/L (3.5-5.1); SODIUM 140 mmol/L (136-145)
[2017-10-10 07:17] VITALS: BP 102/68; PULSE 60; TEMP 36.6; O2SAT 97
[2017-10-10] MEDS ORDERED: DOBUTamine HCL 12.5 MG/ML 20 ML VIAL ONE (07:57)
[2017-10-10] MEDS ORDERED: METOPROLOL TARTRATE 1 MG/ML VIAL ONE ×2 (07:57→07:58)
[2017-10-10] MEDS ORDERED: ATROPINE SULFATE 0.1 MG/ML 10 ML SYR ONE ×2 (07:57→07:58)
[2017-10-10] MEDS ORDERED: PERFLUTREN LIPID MICROSPHERE (DEFINITY) IV ONE (09:05)
[2017-10-10 09:22] LABS: HEMOGLOBIN A1C 5.9 % (4.5-5.6)
[2017-10-10] MEDS: ACETAMINOPHEN 325 MG TAB PO PRN (09:28)
[2017-10-10] MEDS: METOPROLOL SUCC 25MG EXT REL TAB PO SCH (09:29)
[2017-10-10] MEDS: CITALOPRAM 20 MG TAB PO SCH (09:29)
[2017-10-10] MEDS: MONTELUKAST SOD 10 MG TAB PO SCH (09:29)
[2017-10-10] MEDS: LOSARTAN POTASSIUM 25 MG TAB PO SCH (09:29)
[2017-10-10] MEDS: ASPIRIN 81 MG ECTAB PO SCH (09:30)
[2017-10-10] MEDS: CHOLECALCIFEROL 1000 INTER.UNIT TAB PO SCH (09:30)
[2017-10-10] MEDS: FLUTICASONE/SALMETEROL 250/50 (ADVAIR) 14 PUFF/1 INHALER INH SCH (09:30)
[2017-10-10] MEDS: ATORVASTATIN 40 MG TAB PO SCH (09:30)
[2017-10-10] MEDS: MULTIVITAMIN TAB PO SCH (09:30)
[2017-10-10] MEDS: PANTOprazole SOD 40 MG TAB PO SCH (09:30)
--- NOTE | 2017-10-10 09:31 | DOBUTAMINE ECHO ---
*NOTICE TO RECEIVING DEMOCRAT AGENCY This information is strictly Confidential and protected under [place] law. [place] law prohibits you from making any further disclosure of this information unless further disclosure is expressly permitted by the written consent of the person to whom it pertains or is authorized by law. A general authorization for the release of medical or other information is not sufficient for this purpose. Hospital accepts no responsibility if the information is made available to any other person, INCLUDING THE PATIENT. Interpretation Summary * Name: BARNEY SÁNCHEZ Study Date: 10/10/2017 07:54 AM BP: 106/72 mmHg * Patient Location: [facility]\S\N281\S\2 HR: 58 * : 1970 (M/d/yyyy) Gender: Female Height: 68 in * Age: 46 yrs Ethnicity: CA Weight: 246 lb * Ordering Physician: Jose Thomas * Referring Physician: No Doctor, Assigned * Performed By: Zamzam Solo RDCS * * Reason For Study: CHEST PAIN * BSA: 2.2 m2 * The left ventricular ejection fraction increases normally with stress. The left ventricular end-systolic cavity size reduces post-stress (normal response). The left ventricular wall motion with stress is normal. * This was a normal stress echocardiogram. * The stress echocardiogram is negative for inducible ischemia. * The stress ECG response was normal * Stress wall motion was normal. * No chest pain with pharmacologic stress. Procedure Details * DOBUTAMINE ECHO, CPT#24471 * A contrast injection of Definity was performed to improve assessment of LV function. * Contrast was injected into an intravenous site in the left arm. * One vial of Definity ultrasound contrast was diluted in normal saline to a total volume of 10 ml. A total of '7' ml of solution was administered during imaging. * Lot # [id number] of Definity utilized for procedure. * Expiration date SEP 06. * The attending nurse who injected the contrast agent was SIGIFREDO JEFFRIES RN. * No chest pain with pharmacologic stress. Left Ventricle * Left ventricular systolic function is normal. * Ejection Fraction = 55-60%. * The left ventricular ejection fraction increases normally with stress. The left ventricular end-systolic cavity size reduces post-stress (normal response). The left ventricular wall motion with stress is normal. * Rest echocardiogram with mild anteroseptal and apical hypokinesis. Following pharmacologic stress there was augmentation of the wall motion in all LV segments. Stress Parameters * Normal baseline electrocardiogram. * The stress ECG response was normal * No arrhythmia were noted with stress. * Rest heart rate was '58' BPM. * Rest blood pressure was '106/72' * Maximum heart rate achieved was 153 bpm. * Maximum heart rate was 88 % of maximum age-predicted heart rate. * Maximum blood pressure was '194/101' * Maximum Dobutamine infusion rate was '50' mcg/kg/min. * A total of .5 mg of intravenous Atropine was used to supplement Dobutamine for heart rate response. * Dobutamine infusion was terminated due to achieving target heart rate * A total of 5 mg of IV Metoprolol was administered to reverse Dobutamine-induced tachycardia.
[2017-10-10] MEDS ORDERED: SUCR1TAB29 PO (10:03)
[2017-10-10] MEDS ORDERED: OMEP40CA41 PO (10:03)
--- NOTE | 2017-10-10 10:22 | Discharge Instructions ---
Discharge Instructions Date of Service October 10, 2017. Admission Reason for Admission: Chest Pain Discharge Discharge Diagnosis / Problem: chest pain - no evidence of heart attack; stress test negative Discharge Goals Goal(s): Learn about illness, Diagnostic testing, Therapeutic intervention Activity Recommendations Activity Limitations: resume your previous activity . Instructions / Follow-Up Instructions / Follow-Up From Dr. Thomas - 1. Chest pain - this resolved in the ER with pain medication and nitroglycerin. Fortunately it did not recur. All of your blood work for your heart, your EKGs, your telemetry monitoring, your echocardiogram, and your stress test were all negative/normal. You were seen by Dr. Murray, your berry planter. At this time, based on the available data and testing, it appears your pain was unlikely to be your heart and more likely that this is gastrointestinal in origin. With that said a stress test can give false results about 5-10% of the time. If you were to have recurrent chest pain episodes please let Dr. Murray know right away as he would then recommend additional heart testing. 2. High cholesterol - your lipitor is working well at controlling your LDL ( aka - "bad cholesterol"). However, lipitor does a poor job at controlling triglycerides which is a building block of fat in the blood. Normal triglycerides are <150. Your level was 388. You can take podk-ekg-nxfmjon fish oil for this, 1000-2000mg a day. I would recommend a repeat lipid panel in 3 months to see if the triglycerides are improving. 3. Your hemoglobin a1c was 5.9%. This is a screening blood test for diabetes. Your level puts you in the earliest stage of "pre-Diabetes." Please have your family doctor recheck the hemoglobin a1c about twice per year. Many people live in the pre-diabetic stage for many years and then develop full- blown Type 2 diabetes. Please speak with your family doctor more about this. 4. Stomach pains - at this time I would recommend the following - * INCREASE your prilosec (omeprazole) 40mg to TWICE A DAY * START carafate (sucralfate) 1gm four times a day (before meals and at bedtime) * KEEP your appointment for your upper endoscopy tomorrow at [facility] as previously scheduled * follow a bland diet and avoid spicy foods, high-fat foods, fried foods, fast foods, and excessive amounts of caffeine * avoid gxmy-tmd-lzenswj motrin, ibuprofen, naprosyn, alleve 5. Heart disease - continue your aspirin but HOLD your plavix as previously instructed for your endoscopy tomorrow. Resume the plavix when the doctor who performs your endoscopy says it is safe to do so. 6. Migraine headache - you can use uwfu-lmg-grxrnua excedrin migraine, tylenol , or your ultram (tramadol) as needed for headache. If your headache persists please see your family doctor for additional treatment. 7. Follow-up - * keep your appointment at [facility] for tomorrow for the endoscopy; remember, nothing by mouth (except medications) starting at midnight tonight * see Dr. Barr or one of her partners within 1 week 8. Return to [facility] if - * you develop severe, recurrent chest pain * you develop severe, worsening abdominal pain despite taking your prilosec & carafate * you develop shortness of breath * any other concerns Current Hospital Diet Patient's current hospital diet: AHA Diet (Heart Healthy), Low Fat Diet Discharge Diet Recommended Diet: AHA Diet (Heart Healthy), Low Fat Diet Procedures Procedures Performed: 1. CAT scan of the lungs - no evidence of blood clots or pneumonia. 2. Stress test (dobutamine stress echo) - normal/negative. Good heart function. Pending Studies Studies pending at discharge: no Laboratory Results Hemoglobin A1c Test 10/10/17 05:34 Range/Units Estimated Average Glucose 123 mg/dl Hemoglobin A1c 5.9 H 4.5-5.6 % Lipid Panel Test 10/10/17 05:34 Range/Units Triglycerides Level 388 H 0-150 mg/dl Cholesterol Level 158 0-200 mg/dl HDL Cholesterol 32 mg/dl Cholesterol/HDL Ratio 4.9 LDL Cholesterol, Calculated 48 mg/dl Medical Emergencies . Who to Call and When: Medical Emergencies: If at any time you feel your situation is an emergency, please call 911 immediately. . Non-Emergent Contact Non-Emergency issues call your: Primary Care Provider Call Non-Emergent contact if: your pain is not controlled, your pain is worsening, your pain is unusual for you, your pain is concerning you, you have any medication questions . . "Provider Documentation" section prepared by Jose Thomas. .
[2017-10-10] MEDS ORDERED: BUTALBITAL/ACETAMIN/CAFFEINE TAB PO STA (10:26)
[2017-10-10 11:09] VITALS: BP 102/68; PULSE 60; TEMP 36.6; O2SAT 97
--- NOTE | 2017-10-11 09:09 | Discharge Summary ---
Discharge Summary Date of Service October 11, 2017. Discharge Summary Admission Date: October 09, 2017 at 08:44 Discharge Date: October 10, 2017 Discharge Disposition: Home Principal Diagnosis: chest pain, ACS ruled out; negative stress test Problems/Secondary Diagnoses: 1. CAD, s/p LAD stent in 04/2016 2. morbid obesity with BMI 37 3. hyperlipidemia 4. hypothyroidism 5. asthma 6. recent abdominal pain - work-up in progress 7. migraine headaches Procedures: dobutamine stress echo - * The left ventricular ejection fraction increases normally with stress. The left ventricular end-systolic cavity size reduces post-stress (normal response) . The left ventricular wall motion with stress is normal. * This was a normal stress echocardiogram. * The stress echocardiogram is negative for inducible ischemia. * The stress ECG response was normal * Stress wall motion was normal. * No chest pain with pharmacologic stress. Consultations: cardiology - Fan Murray MD Medication Reconciliation New Medications: Sucralfate (Carafate) 1 Gm Tab 1 GM PO ACHS for 10 Days, #40 TAB 0 Refills Changed Medications: Omeprazole (Prilosec) 40 Mg Cap 40 MG PO BID, #60 CAP 2 Refills (Changed from: QAM; Refills: ) Continued Medications: Albuterol Hfa (Ventolin Hfa) 200 Puffs/48731 Mcg Aers 2-3 PUFFS INH BID PRN for Shortness of Breath, INHALER Aspirin (Aspirin EC Low Dose) 81 Mg Ectab 81 MG PO QAM Atorvastatin (Lipitor) 80 Mg Tab 80 MG PO QAM, TAB Cholecalciferol (Vitamin D) 1,000 Unit Tab 1 TAB PO QAM Citalopram Hydrobromide (Celexa) 20 Mg Tab 20 MG PO QAM, TAB Fluticasone-Salmeterol 230/21 Mcg (Advair Hfa 230/21 Mcg) 1 Aer Aer 2 PUFFS INH BID, AER Levothyroxine Sodium (Levothyroxine Sodium) 112 Mcg Tab 112 MCG PO DAILY for 90 Days, #90 TAB 3 Refills Losartan Potassium (Cozaar) 25 Mg Tab 25 MG PO QAM, TAB Metoprolol Succinate (Toprol Xl) 25 Mg Tabcr 25 MG PO QAM, #30 TAB Montelukast Sodium (Singulair) 10 Mg Tab 10 MG PO QAM, TAB Multiple Vitamin (Multivitamin) 1 Tab Tab 1 TAB PO QAM, TAB Nitroglycerin (Nitrostat) 0.4 Mg Tab 0.4 MG UT DIRECTED PRN for chest pain, BTL Amory-3 Fatty Acids (Fish Oil) 1 Cap Cap 1 CAP PO QAM Tramadol (Ultram) 50 Mg Tab 50-100 MG PO Q4H PRN for Pain, TAB [Vitamin B12] () Unknown Strength Unknown Dose PO QAM Discontinued Medications: Clopidogrel (Plavix) 75 Mg Tab 75 MG PO QAM, TAB Lisinopril (Lisinopril) 2.5 Mg Tab 2.5 MG PO QAM, TAB Discharge Exam Physical Exam: General Appearance: no apparent distress, + obese ENT: pharynx normal Neck: no JVD Respiratory/Chest: lungs clear, no respiratory distress, no accessory muscle use Cardiovascular: regular rate, rhythm, no gallop, no murmur, normal peripheral pulses Abdomen / GI: normal bowel sounds, soft, no organomegaly, + tenderness ( high epigastric region ) Extremities: no pedal edema Neurologic/Psychiatric: alert, oriented x 3 Hospital Course HISTORY OF PRESENT ILLNESS: 46yo female with known CAD s/p LAD stent in 04/2016 who presents this AM with chest pain that began sometime between 0130 and 0200. The pain woke her from sleep. When she went to bed last evening she "felt fine." The pain was located in the left breast area and radiated into the upper portion of the left arm. She had associated dyspnea with nausea and diaphoresis. No palpitations. She took nitroglycerin SL with relief of symptoms. She took a total of 2 SL nitros. The pain didn't resolve completely and a friend of hers that is a nurse encouraged her to come to the ER. Upon presentation she continued with chest pain and was given nitropaste and fentanyl with full resolution of symptoms. Her only present complaint during my evaluation is that of headache from the nitroglycerin. Over the last few weeks she has had some upper GI symptoms including nausea, frequent burping, and reflux symptoms. She has not had chest pain. She was scheduled to have an outpatient EGD with Dr. Hernández at [facility] on of this week. She was holding her plavix in preparation for the EGD but HAS BEEN taking her aspirin. Her symptoms today feel different than when she had her ACS and stent in 2016. Then her pain was central and had "severe heartburn"; today the pain is left- sided in location. HOSPITAL COURSE: The patient was placed on observation status on the telemetry unit and underwent serial troponins which were negative x 4. Telemetry remained stable. Vitals remained stable. She had no further chest pain. Her main complaint throughout her stay was that of epigastric discomfort/ dyspepsia. This was treated with twice daily PPI and carafate. She was seen by her primary advocacy director, Dr. Capone, who advised a repeat stress echocardiogram as her stress test earlier in 2018 did not reach target heart rate. Thus, on the AM of hospital day #2, she underwent dobutamine stress echocardiogram and this was entirely normal. Specifically there was no evidence of inducible ischemia/wall motion abnormalities. It is suspected that her symptoms were GI in origin. At discharge she was asked to continue her PPI but increase this to twice daily and also take carafate before meals & at bedtime. She has a previously scheduled EGD at [facility] on , 10/11/17, and was asked to keep this in light of her GI symptoms. She will continue to hold her plavix until after her EGD is completed. Her stay was complicated by migraine headache which required various medications for abortive treatment. Lastly, on lipid profile, her triglycerides were markedly elevated in the high 300s. She was asked to take fish oil kqax-[id number]-[id number] and have her lipid profile rechecked in 3 months as an outpatient. She will continue on her statin agent as previous. Total Time Spent: Greater than 30 minutes This includes examination of the patient, discharge planning, medication reconciliation, and communication with other providers. Discharge Instructions Please refer to the electronic Patient Visit Report (Discharge Instructions) for additional information. Follow-Up 1. EGD - [facility] - 10/11/17 2. see PCP, Dr. Barr - SundayOctober 17 at 9:20 am Additional Copies To Angelita Barr DO; Gavin Hernández; Fan Murray M.D.
== END 2017-10-10 11:35 | disposition home or self-care (01) ==
LOC: C.EDB 03:13 → C.MED 08:44 → ENRESERV 08:59 → C.MED 18:16
PROVIDERS: ADMIT Internal Medicine; ATTEND Internal Medicine
DX: R07.9 Chest pain, unspecified (principal); I25.10 Atherosclerotic heart disease of native coronary artery without angina pectoris; E66.01 Morbid (severe) obesity due to excess calories; Z68.37 Body mass index [BMI] 37.0-37.9, adult; E78.5 Hyperlipidemia, unspecified; E03.9 Hypothyroidism, unspecified; J45.909 Unspecified asthma, uncomplicated; R10.9 Unspecified abdominal pain; G43.909 Migraine, unspecified, not intractable, without status migrainosus; K21.9 Gastro-esophageal reflux disease without esophagitis; I25.2 Old myocardial infarction; Z79.82 Long term (current) use of aspirin; Z79.899 Other long term (current) drug therapy; Z90.49 Acquired absence of other specified parts of digestive tract; Z98.51 Tubal ligation status; Z98.890 Other specified postprocedural states; Z88.5 Allergy status to narcotic agent

== ENCOUNTER 2019-02-20 20:31 | Observation (INO) ==
[2019-02-20] MEDS ORDERED: ACETAMINOPHEN 500 MG TAB PO STA (20:50)
[2019-02-20] MEDS ORDERED: ASPIRIN CHEW 324 MG PO STA (20:50)
[2019-02-20] MEDS ORDERED: fentaNYL citrate 100 MCG/2 ML VIAL IV STA (20:50)
[2019-02-20] MEDS: NITROGLYCERIN SL 0.4 MG/TAB TAB SL PRN ×2 (20:57→21:21)
[2019-02-20 21:10] LABS: Basophils # (auto) 0.05 K/uL (0-0.2); Basophils % (auto) 0.5 %; Eosinophils # (auto) 0.26 K/uL (0-0.5); Eosinophils % (auto) 2.5 %; Hematocrit (blood only) 36.8 % (37-47); Hemoglobin 12.2 g/dL (12.0-16.0); Immature Granulocytes # (auto) 0.04 K/uL (0.00-0.02); Immature Granulocytes % (auto) 0.4 %; Lymphocytes # (auto) 3.93 K/uL (1.2-3.4); Lymphocytes % (auto) 38.2 %; Mean Corpuscular Hemoglobin 27.9 pg (25-34); Mean Corpuscular Hgb Conc 33.2 g/dL (32-36); Mean Platelet Volume 9.8 fL (7.4-10.4); Monocytes # (auto) 0.84 K/uL (0.11-0.59); Monocytes % (auto) 8.2 %; Neutrophils # (auto) 5.16 K/uL (1.4-6.5); Neutrophils % (auto) 50.2 %; Platelet Count 288 K/uL (130-400); RDW Standard Deviation 46.5 fL (36.4-46.3); Red Blood Count 4.38 M/uL (4.2-5.4); White Blood Count 10.28 K/uL (4.8-10.8)
--- NOTE | 2019-02-20 21:10 | XRay Report ---
XR chest 1V portable CLINICAL HISTORY: Atypical chest pain COMPARISON STUDY: 03/05/2018 FINDINGS: The cardiac and mediastinal contours remain stable. There is mild interstitial prominence u nchanged from the preceding study. There is no focal pulmonary consolidation. There are no pleural ef fusions.[ IMPRESSION: Stable mild chronic interstitial prominence. No acute findings. No evidence of focal pulm onary consolidation Electronically signed by: Maikel Yao M.D. 02/20/2019 9:09 PM
[2019-02-20 21:27] LABS: Alanine Aminotransferase 34 U/L (12-78); Albumin Level 3.7 gm/dl (3.4-5.0); Aspartate Aminotransferase 24 U/L (15-37); BUN Creatinine Ratio 13.3 (10-20); Blood Urea Nitrogen 17 mg/dl (7-18); Calcium 8.8 mg/dl (8.5-10.1); Carbon Dioxide 22 mmol/L (21-32); Chloride 108 mmol/L (98-107); Creatinine Clr Calc Pharmacy 69.1 ml/min; Est GFR (Non-African American) 49.2; Glucose 109 mg/dl (70-99); Lipase 170 U/L (73-393); Magnesium 2.5 mg/dl (1.8-2.4); Potassium 3.8 mmol/L (3.5-5.1); Sodium 138 mmol/L (136-145)
[2019-02-20 21:32] LABS: Alkaline Phosphatase 130 U/L (45-117); Bilirubin,Total 0.3 mg/dl (0.2-1); Globulin 3.7 gm/dl (2.5-4.0); Phosphorus 2.9 mg/dl (2.5-4.9); Total Protein 7.4 gm/dl (6.4-8.2); Troponin I < 0.015 ng/ml (0-0.045)
[2019-02-20] MEDS ORDERED: SODIUM CHLORIDE 0.9% 1000ML 500 ML IV ONE (21:56)
[2019-02-20] MEDS ORDERED: METOCLOPRAMIDE HCL INJ 5 MG/ML 2 ML VIAL IV STA (21:56)
[2019-02-20] MEDS ORDERED: DiphenhydrAMINE HCL 50 MG/ML VIAL IV STA (21:56)
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
[2019-02-20 23:27] LABS: D Dimer 1550 ug/L FEU (0-500)
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
[2019-02-21] MEDS ORDERED: OPTIRAY 320 125ml IV PRN
[2019-02-21] MEDS ORDERED: ONDANSETRON INJ 2 MG/ML 2 ML VIAL IV PRN (00:46)
[2019-02-21] MEDS ORDERED: NAPROXEN 250 MG TAB PO PRN (00:46)
[2019-02-21] MEDS ORDERED: POLYETHYLENE (MIRALAX) 17 GM PACK PO PRN (00:46)
[2019-02-21] MEDS ORDERED: ALUMINUM/MAGNESIUM SUSP 30 ML UDC PO PRN (00:46)
[2019-02-21] MEDS ORDERED: IPRATROPIUM BROMIDE HFA INHALER INH PRN (00:46)
[2019-02-21] MEDS ORDERED: ALBUTEROL HFA 8 GM INHALER INH PRN (00:46)
[2019-02-21] MEDS ORDERED: NITROGLYCERIN SL 0.4 MG/TAB TAB SL PRN ×2 (00:46)
[2019-02-21] MEDS ORDERED: ACETAMINOPHEN 325 MG TAB PO PRN (00:46)
[2019-02-21] MEDS: D5NSS + 20MEQ KCL 20 MEQ/1,000 ML BAG IV SCH ×2 (01:30→15:32)
[2019-02-21] MEDS: HYDROmorphone INJ 0.5 MG/0.5 ML SYR IV PRN ×2 (01:30→15:32)
[2019-02-21] MEDS: SUCRALFATE 1 GM TAB PO SCH ×3 (06:05→16:41)
[2019-02-21] MEDS: HEPARIN SOD 5,000 UNIT/0.5 ML VIAL SQ SCH ×2 (06:06→15:36)
[2019-02-21] MEDS ORDERED: LEVOTHYROXINE SODIUM 137 MCG TABLET PO SCH (06:30)
--- NOTE | 2019-02-21 07:42 | CT Scan Report ---
CT ANGIOGRAM OF THE CHEST CLINICAL HISTORY: Atypical chest pain. COMPARISON STUDY: Chest CT scans dated 03/05/2018 and 08/01/2018. Chest x-ray dated 02/20/2019. TECHNIQUE: Following the IV administration of 118 cc of Optiray 320, CT angiogram of the chest was pe rformed from the upper abdomen to the thoracic inlet utilizing the pulmonary embolus protocol. Images are reviewed in the axial, sagittal, and coronal planes. 3-D MIPS images are created and assessed. I V contrast was administered without complication. A dose lowering technique was utilized adhering to the principles of ALARA. CT DOSE: 684.99 mGy.cm FINDINGS: Thyroid: Imaged portions of the thyroid gland are normal in size and attenuation. Thoracic aorta: The thoracic aorta is normal in caliber and demonstrates standard 3-vessel arch anato my. No dissection is seen. Pulmonary vasculature: The pulmonary trunk is normal in caliber. There are no filling defects identif ied in main, lobar, or segmental pulmonary branches to suggest pulmonary embolus. Heart: The heart is top normal in size and without pericardial effusion. There are coronary artery ca lcifications. Lungs and pleural spaces: Mild emphysematous change is noted at the lung apices. No airspace consolid ation or pleural effusion is identified. There is dependent atelectasis. The trachea and central airw ays are clear. Mediastinum: There is no mediastinal lymphadenopathy. Fatimah: Clear. Axillae: There is no axillary lymphadenopathy. Upper abdomen: Cholecystectomy clips are noted. Partially visualized upper abdominal viscera is other champagne within normal limits. Skeletal structures: No lytic or blastic bony lesions are seen. IMPRESSION: 1. There is no evidence of pulmonary embolus in the main, lobar, or segmental pulmonary arteries. 2. Mild emphysema. 3. There is no airspace consolidation or pleural effusion. Electronically signed by: Harinder Novoa M.D. 02/21/2019 7:41 AM
[2019-02-21] MEDS: cephALEXin 500 MG CAP PO SCH ×3 (07:59→16:42)
[2019-02-21] MEDS ORDERED: TIOTROPIUM BROMIDE 5 PUFF/90 MCG INH INH SCH (09:00)
[2019-02-21] MEDS ORDERED: OMEGA-3 (PURIFIED FISH OIL) 1 GM CAP PO SCH (09:00)
[2019-02-21] MEDS ORDERED: CHOLECALCIFEROL 1,000 UNITS TAB PO SCH (09:00)
[2019-02-21] MEDS ORDERED: SULFAMETHOXAZOLE/TRIMETHOPRIM DS 800/160MG TAB PO SCH (09:00)
[2019-02-21] MEDS ORDERED: METOPROLOL SUCC 25MG EXT REL TAB PO SCH (09:00)
[2019-02-21] MEDS ORDERED: ASPIRIN 81 MG ECTAB PO SCH (09:00)
[2019-02-21] MEDS ORDERED: MULTIVITAMIN TAB PO SCH (09:00)
[2019-02-21] MEDS ORDERED: CITALOPRAM 40 MG TAB PO SCH (09:00)
[2019-02-21] MEDS ORDERED: CLOPIDOGREL BISULFATE 75 MG TAB PO SCH (09:00)
[2019-02-21] MEDS ORDERED: CYANOCOBALAMIN 500 MCG TABLET (VITAMIN B-12) PO SCH (09:00)
[2019-02-21] MEDS ORDERED: INFLUENZA VIRUS QUAD VACCINE 0.5 ML SYR IM ONE (09:00)
[2019-02-21] MEDS ORDERED: PANTOprazole 40 MG TAB PO SCH (09:00)
[2019-02-21] MEDS ORDERED: ATORVASTATIN 40 MG TAB PO SCH (09:00)
[2019-02-21] MEDS ORDERED: FEXOFENADINE HCL 180 MG TAB PO SCH (09:00)
[2019-02-21] MEDS ORDERED: LOSARTAN POTASSIUM 25 MG TAB PO SCH (09:00)
[2019-02-21] MEDS ORDERED: INFLUENZA ADMINISTRATION CHARGE ONE (09:00)
[2019-02-21] MEDS ORDERED: BUTALBITAL/ACETAMIN/CAFFEINE TAB PO PRN (10:02)
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
[2019-02-21] MEDS ORDERED: ATROPINE SULFATE 0.1 MG/ML 10ML SYR IV ONE (13:27)
[2019-02-21] MEDS ORDERED: METOPROLOL TARTRATE 1 MG/ML VIAL IV ONE (13:28)
[2019-02-21] MEDS ORDERED: DOBUTamine HCL 12.5 MG/ML 20 ML VIAL IV ONE (13:28)
--- NOTE | 2019-02-21 17:15 | Discharge Summary ---
Date of Service February 21, 2019 Admission HPI Per Admitting Provider 48 y/o F Hx HTN, HLD, CAD/NSTEMI 2016, hypothyroidism, asthma, GERD, obese. Presents with intermittent central CP accompanied by nausea and one episode of vomiting. Denies radiation of the pain, SOB, light head or diaphoresis. Initial labs are notable for an elevated Ddimer which may be chronic. She did not exhibit hypoxia or tachycardia on arrival to the ER. Troponin is negative. An EKG demonstrates a single lead inversion in V2. She is being treated for cellulitis of the L index finger with Bactrim and Keflex. PMH: 1) CAD - NSTEMI 2016 - LAD stent. Normal stress 2018. 2) HTN 3) HLD 4) Obese - BMI 40 5) GERD 6) Hypothyroidism 7) Asthma 8) Migraine headaches Surgical: 1) Breast lumpectomy - benign 2) Cholecystectomy 3) Tubal ligation 4) Rotator cuff Social: Does not drink or smoke Family: Father age 65 due to [place] Mother age 67 owing to lung [place] Principal Diagnosis Chest pain, possibly GERD-related Discharge Exam Constitutional WD/WN, vitals as above Eyes EOM intact bilaterally; no conjunctival abnormality ENMT external ear and nose normal, oropharynx normal Neck trachea midline, no thyromegaly normal visual inspection Respiratory normal respiratory effort, lungs clear to auscultation no respiratory distress Cardiovascular RRR, no murmur, no edema Gastrointestinal (Abdomen) Inspection/Auscultation: abdomen normal to inspection; abdomen not distended Musculoskeletal no cyanosis or clubbing, extremities motor strength 5/5 Skin no rashes, warm and dry Neurologic moves all extremities and awake Psychiatric Orientation: alert, oriented to person and cooperative Discharge Data Allergies Allergy/AdvReac Type Severity Reaction Status Date / Time adhesive Allergy Intermediate HIVES Verified 02/20/19 20:57 morphine AdvReac Intermediate GI UPSET Verified 02/20/19 20:57 Consultations 02/20/19 22:41 ED Decision to Admit Stat 02/21/19 08:18 Consult Cardiology Routine Ordered Studies 02/20/19 23:32 CT angio chest PE protocol Urgent Hospital Course (1) Chest pain in adult: 48 y/o F Hx HTN, HLD, CAD/NSTEMI 2016, hypothyroidism, asthma, GERD, obese. Presents with intermittent central CP accompanied by nausea and one episode of vomiting. Denies radiation of the pain, SOB, light head or diaphoresis. Initial labs are notable for an elevated Ddimer which may be chronic. She did not exhibit hypoxia or tachycardia on arrival to the ER. Troponin is negative. An EKG demonstrates a single lead inversion in V2. She is being treated for cellulitis of the L index finger with Bactrim and Keflex. 1) CP - Troponins and EKGs were normal. Dobutamine stress test was negative. Thought maybe it was GERD-related as she had some nausea with it. Prescribed re- newed Carafate order as she hadn't taken it in awhile. If it does not get better in 1-2 weeks, she will follow up with her PCP for further work-up. 2) HTN, HLD - cont Losartan, Metoprolol, Atorvastatin 3) Asthma - cont Singulair, ipratropium, albuterol 4) Hypothyroidism - cont Synthroid 5) Cellulitis - cont abx as scheduled Full code, Heparin prophylaxis Total time for this admit including review of labs, meds, imaging, records, EKG -discussion with pt and ER attending - 37 min Total Time Total Time Spent Total Time Spent (In Minutes): 35 Discharge Plan Discharge Items Patient Disposition: Home - Self-Care Reason For Visit: CHEST PAIN / CAD Discharge Diagnosis: Chest pain - Not likely cardiac Activity: Resume your previous activity Non-emergency contact: Primary Care Provider Call non-emergency contact if: your symptoms worsen and your pain is worsening Follow-up/Referrals: Angelita Barr DO [Primary Care Provider] - Diet: Heart Healthy Addtl Attending Provider Instructions: Your stress was negative. We do not feel your chest pain is cardiac in nature. Please follow up with your PCP if the pain comes back. Pending Studies at Discharge: No Stand-Alone Forms: Call Back Authorization, [facility] Medications and DC Order Prescriptions: New sucralfate 100 mg/mL suspension 10 ml PO ACHS Qty: 420 RF: 0 Continued metoprolol succinate 25 mg tablet extended release 24 hr 25 mg PO DAILY Qty: 90 RF: 1 naproxen 500 mg tablet 500 mg PO BID PRN (Reason: pain) Qty: 60 RF: 2 atorvastatin 80 mg tablet 80 mg PO DAILY Qty: 90 RF: 3 azelastine 137 mcg (0.1 %) aerosol,spray 2 sprays intranasal DAILY Qty: 1 RF: 0 betamethasone dipropionate 0.05 % ointment 1 appln topical BID Qty: 1 RF: 0 ojuiefzjol-qmuwnmcxjfdti-uaqj 50-300-40 mg capsule 1 cap PO Q4H PRN (Reason: Migraine Headache) Qty: 10 RF: 0 hydroxyzine HCl 25 mg tablet 25 mg PO TID PRN (Reason: NEEDED) Qty: 30 RF: 0 levothyroxine 137 mcg tablet 137 mcg PO DAILY Qty: 30 RF: 0 cholecalciferol (vitamin D3) 5,000 unit capsule 5,000 units PO DAILY Qty: 90 RF: 0 Atrovent HFA 17 mcg/actuation HFA aerosol inhaler 2 puffs INH DIRECTED RF: 0 Spiriva Respimat 2.5 mcg/actuation mist 2 puffs INH DAILY RF: 0 fexofenadine [Diana Allergy] 180 mg tablet 180 mg PO DAILY RF: 0 citalopram 40 mg tablet 40 mg PO DAILY RF: 0 clopidogrel 75 mg tablet 75 mg PO DAILY RF: 0 aspirin 81 mg Tablet,Delayed Release (Dr/Ec) 81 mg PO DAILY RF: 0 multivitamin [Multiple Vitamins] Tablet 1 tab PO DAILY RF: 0 omega-3 fatty acids 1,000 mg Capsule 1,000 mg PO DAILY RF: 0 cyanocobalamin (vitamin B-12) 1,000 mcg Tablet 1,000 mcg PO DAILY RF: 0 omeprazole 40 mg Capsule,Delayed Release(Dr/Ec) 40 mg PO BID RF: 0 losartan 25 mg Tablet 25 mg PO DAILY RF: 0 montelukast 10 mg Tablet 10 mg PO PM RF: 0 albuterol sulfate 90 mcg/actuation Hfa Aerosol Inhaler 2 puff INHALATION QID PRN (Reason: Shortness Of Breath Or Wheezing) RF: 0 sulfamethoxazole-trimethoprim [Bactrim DS] 800-160 mg tablet 160 mg PO Q12H Qty: 14 RF: 0 cephalexin [Keflex] 500 mg capsule 500 mg PO QID 7 Days Qty: 28 RF: 0 nitroglycerin [Nitrostat] 0.4 mg tablet, sublingual 0.4 mg Sublingual DIRECTED PRN (Reason: chest pain) RF: 0 Discharge Orders: Discharge Order (Routine); Ordered 02/21/19 Ordered By: Luciano Kaur Admission Data Admit Date/Time: 02/20/19 23:13 Attending Provider: Luciano Kaur Admit Provider: Roldan Madden Primary Care Provider: Angelita Barr Other Providers: Luciano Kaur ; Keyon Conner Other Interventions: Discharge Summary Assessment (RN) Last Done: 02/21/19 16:46 DC Date/Time DO NOT enter until pt leaves facility: 02/21/19 17:12
[2019-02-21] MEDS ORDERED: BETAMETHASONE DIP AUG 0.05% OINT 15 GM TUBE EXT SCH (21:00)
[2019-02-21] MEDS ORDERED: MONTELUKAST SODIUM 10 MG TABLET PO SCH (21:00)
== END 2019-02-21 17:12 | disposition home or self-care (01) ==
LOC: 2E 20:31 → ED 20:31 → SUATTDRO 23:13 → 2E 02-21 00:40

== ENCOUNTER 2020-02-04 13:34 | Observation (INO) ==
[2020-02-04] MEDS ORDERED: SODIUM CHLORIDE 0.9% 1000ML 1,000 ML IV ONE (14:10)
[2020-02-04] MEDS ORDERED: ONDANSETRON INJ 2 MG/ML 2 ML VIAL IV STA (14:10)
[2020-02-04] MEDS ORDERED: HYDROmorphone INJ 0.5 MG/0.5 ML SYR IV STA (14:12)
--- NOTE | 2020-02-04 14:24 | XRay Report ---
XR chest 1V portable CLINICAL HISTORY: Atypical chest pain COMPARISON STUDY: No previous studies for comparison. FINDINGS: The cardiac and mediastinal contours are normal. There is no evidence of focal pulmonary co nsolidation. There is no evidence of failure. No pleural effusions are visualized.[There is stable mi ld interstitial prominence. IMPRESSION: No active disease in the chest. ACT 112: Negative or not required by law. Electronically signed by: Maikel Yao M.D. 02/04/2020 2:22 PM
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
[2020-02-04 14:33] LABS: Basophils # (auto) 0.02 K/uL (0-0.2); Basophils % (auto) 0.2 %; Hematocrit (blood only) 36.9 % (37-47); Hemoglobin 11.6 g/dL (12.0-16.0); Immature Granulocytes # (auto) 0.03 K/uL (0.00-0.02); Immature Granulocytes % (auto) 0.3 %; Lymphocytes # (auto) 4.12 K/uL (1.2-3.4); Lymphocytes % (auto) 41.4 %; Mean Corpuscular Hemoglobin 25.1 pg (25-34); Mean Corpuscular Hgb Conc 31.4 g/dL (32-36); Mean Corpuscular Volume 79.9 fL (80-100); Mean Platelet Volume 10.1 fL (7.4-10.4); Monocytes # (auto) 0.55 K/uL (0.11-0.59); Monocytes % (auto) 5.5 %; Neutrophils # (auto) 5.03 K/uL (1.4-6.5); Neutrophils % (auto) 50.6 %; Platelet Count 318 K/uL (130-400); RDW Coefficient of Variation 16.8 % (11.5-14.5); RDW Standard Deviation 48.5 fL (36.4-46.3); Red Blood Count 4.62 M/uL (4.2-5.4); White Blood Count 9.95 K/uL (4.8-10.8)
[2020-02-04 14:58] LABS: Alanine Aminotransferase 24 U/L (12-78); Albumin Globulin Ratio 0.9 (0.9-2); Albumin Level 3.7 gm/dl (3.4-5.0); Alkaline Phosphatase 140 U/L (45-117); Aspartate Aminotransferase 24 U/L (15-37); BUN Creatinine Ratio 12.6 (10-20); Bilirubin,Total 0.3 mg/dl (0.2-1); Blood Urea Nitrogen 13 mg/dl (7-18); Calcium 9.1 mg/dl (8.5-10.1); Carbon Dioxide 22 mmol/L (21-32); Chloride 108 mmol/L (98-107); Creatinine Clr Calc Pharmacy 89.2 ml/min; Est GFR (African American) 75.5; Est GFR (Non-African American) 65.2; Globulin 4.1 gm/dl (2.5-4.0); Glucose 110 mg/dl (70-99); Lipase 141 U/L (73-393); Potassium 3.7 mmol/L (3.5-5.1); Sodium 140 mmol/L (136-145); Total Protein 7.8 gm/dl (6.4-8.2); Troponin I < 0.015 ng/ml (0-0.045)
[2020-02-04] MEDS ORDERED: ACETAMINOPHEN 500 MG TAB PO STA (15:09)
[2020-02-04 16:02] LABS: Partial Thromboplastin Time 28.5 Seconds (21.0-31.0); Prothrombin Time 10.3 Seconds (9.0-12.0)
[2020-02-04 16:04] LABS: D Dimer 1800 ug/L FEU (0-500)
[2020-02-04] MEDS ORDERED: OPTIRAY 320 125ml IV ONE (16:37)
--- NOTE | 2020-02-04 16:53 | CT Scan Report ---
CT angio chest PE protocol CT DOSE: 888.35 mGy.cm HISTORY: 49 years-old Female with PE. Acute chest pain with shortness of breath TECHNIQUE: Multiple CTA images of the chest were obtained after the intravenous administration of 118 ml Optiray 320. Coronal and sagittal MIPS were obtained from the axial data set and were submitted for review. All measurements were obtained according to NASCET criteria. A dose lowering technique w as utilized adhering to the principles of ALARA. COMPARISON: Chest radiograph of same day, CTA chest 02/20/2019 FINDINGS: CTA: Heart is upper limits of normal in size. Moderate coronary artery calcifications. No pericardial effu rajat. There is no thoracic aortic aneurysm or dissection. Patency of the imaged great vessels. No med iastinal hematoma. Reflux of contrast into the IVC and hepatic veins. The pulmonary arterial tree is opacified to the level of the subsegmental branches and demonstrates no filling defects to suggest pu lmonary thromboembolic disease. CT CHEST: Unremarkable thyroid. No adenopathy. There is no pneumothorax, pleural effusion, airspace consolidati on or overt pulmonary edema. Mild subpleural bleb formation versus paraseptal emphysema of the lung a pices. Mild bilateral bronchial wall thickening. There are no suspicious pulmonary nodules or masses. Central airways appear patent. Cholecystectomy. Probable mild hepatic steatosis. Unremarkable soft t issues. Bones appear intact. No acute fracture or suspicious bone lesion. There is a screw tract with in the posterior left humeral head. IMPRESSION: 1. No evidence of pulmonary thromboembolic disease. 2. Mild bronchial wall thickening suggestive of bronchitis or reactive airway disease. 3. No pleural effusion, adenopathy or airspace consolidation typical for pneumonia. 4. Moderate coronary artery calcifications. ACT 112: Negative or not required by law. The above report was generated using voice recognition software. It may contain grammatical, syntax o r spelling errors. Electronically signed by: Héctor Hodges M.D. 02/04/2020 4:52 PM
--- NOTE | 2020-02-04 19:08 | History & Physical Report ---
Date of Service February 04, 2020 Assessment & Plan (1) Chest pain: Atypical for cardiac chest pain. Consistent with pleurisy. Given cardiac history will initially r/o UT with trending troponins overnight. No change with position to suggest pericarditis. Multiple similar admissions for chest pain with multiple negative myocardial perfusion scans over the last 2 years. Associated fatigue and myalgias/arthralgias concerning for non-specific viral illness although no upper respiratory findings to suggest needs testing for COVID-19. Possible autoimmune disease given family history of rheumatoid arthritis will get inflammatory markers for this + COREY/RF/anti-CCP with AM labs. (2) Tension headache: Acetaminophen PRN Heating pad (3) CAD (coronary artery disease): Continue aspirin 81 mg p.o. daily, metoprolol succinate 25 mg ER p.o. daily, losartan 25 mg p.o. daily, atorvastatin 80 mg p.o. daily. (4) Ischemic cardiomyopathy: Continue metoprolol succinate and losartan as above. (5) Presence of drug coated stent in LAD coronary artery: Notable history of this but with multiple negative myocardial perfusion sc ans since. (6) Chronic gastritis: Elevate head of bed > 30 degrees at all times Continue omeprazole 40 mg p.o. twice daily for hospital equivalent. Patient reports no longer taking Carafate. (7) Chronic bronchitis: No acute exacerbation of this suspected. Continue Spiriva and albuterol as needed. (8) Hypothyroidism: TSH with a.m. labs Continue levothyroxine 137 mcg p.o. daily (9) Depression with anxiety: Continue citalopram 40 mg p.o. daily Admission and Anticipated Discharge Date Admission Date: February 04, 2020 History of Present Illness Chief Complaint: Chest pain Primary Care Provider: DO Lupe Cornejo Collins is a 49-year-old female with known coronary artery disease s/p CHOCO to LAD in 2016 who presents to the ER with chest pain. 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 Left side of upper chest, severity 9/10, currently 5/10. Pleuritic in nature. Stabbing pain. Radiation to left arm feeling heavy and numb. Associated mild shortness of breath, diaphoresis, nausea. She reports this is a different feeling from her prior myocardial infarction which was more central and lower down. She reports compliance with all her medication. She takes omeprazole 40 mg twice daily for reflux but reports this is well controlled. No burning sensation or acidic taste in her mouth. No coughing while lying down. Her primary model engine mechanic is Dr Murray. Since her myocardial infarction she has had multiple admissions for chest pain rule outs with negative dobutamine stress echocardiograms but with no definitive etiology identified ? Chest wall pain/anxiety/GERD/esophageal dysmotility. Her last dobutamine stress echo was in February 2019 with LVEF 55 to 60%. No definitive regional wall motion abnormalities. Negative stress at 87% MPHR. Last cardiac catheterization was after her PCI in May 2016 showing patent mid LAD stent with proximal LAD 30%. She does report increased stress recently with headaches for the last 3 to 4 days. She has a longstanding history of migraines. Currently has a bilateral frontal and neck headache, severity 9/10. She is having a lot of headaches recently which feel like this rather than her usual left-sided pulsating migraines. In the ER her initial troponin was negative and EKG unremarkable. Due to her significant coronary artery disease history she was referred to the medicine team for further assessment of her ongoing chest pain. Allergies Allergy/AdvReac Type Severity Reaction Status Date / Time adhesive Allergy Intermediate HIVES Verified 02/04/20 15:10 amoxicillin AdvReac Severe Hives Verified 02/04/20 15:10 morphine AdvReac Intermediate GI UPSET Verified 02/04/20 15:10 Home Medications Home Medications Medication Instructions Recorded Confirmed Type albuterol sulfate 2 puff INHALATION QID PRN 03/05/18 02/04/20 History aspirin 81 mg PO DAILY 03/05/18 02/04/20 History cyanocobalamin (vitamin B-12) 1,000 mcg PO DAILY 03/05/18 02/04/20 History multivitamin [Multiple Vitamins] 1 tab PO DAILY 03/05/18 02/04/20 History omega-3 fatty acids 1,000 mg PO DAILY 03/05/18 02/04/20 History naproxen 500 mg tablet 500 mg PO BID PRN #60 tab 01/10/19 02/04/20 Rx azelastine 137 mcg (0.1 %) nasal 2 sprays INTRANASAL DAILY #1 ml 01/13/19 02/04/20 History spray aerosol cholecalciferol (vitamin D3) 125 5,000 units PO DAILY #90 cap 01/13/19 02/04/20 History mcg (5,000 unit) capsule hydroxyzine HCl 25 mg tablet 25 mg PO TID PRN #30 tab 01/13/19 02/04/20 History fexofenadine 180 mg tablet 180 mg PO DAILY 02/03/19 02/04/20 History ipratropium bromide 17 2 puffs INH DIRECTED gm 02/03/19 02/04/20 History mcg/actuation HFA aerosol inhaler tiotropium bromide 2.5 2 puffs INH DAILY 02/03/19 02/04/20 History mcg/actuation mist for inhalation atorvastatin 80 mg tablet 80 mg PO DAILY #90 tab 02/10/19 02/04/20 Rx nitroglycerin [Nitrostat] 0.4 mg SUBLINGUAL DIRECTED PRN 02/20/19 02/04/20 History sucralfate 10 ml PO ACHS #420 ml 02/21/19 02/04/20 Rx betamethasone dipropionate 0.05 % 1 appln TOPICAL BID PRN #1 gm 02/25/19 02/04/20 Rx topical ointment metoprolol succinate 25 mg 25 mg PO DAILY #90 tab 03/24/19 02/04/20 Rx tablet,extended release 24 hr losartan 25 mg tablet 25 mg PO DAILY #90 tab 07/16/19 02/04/20 Rx piifnflfxu-crmsekrdeydlt-fjccaamc 1 cap PO Q4H PRN #10 cap 08/08/19 02/04/20 Rx 50 mg-300 mg-40 mg capsule citalopram 40 mg tablet 40 mg PO DAILY #30 tab 09/10/19 02/04/20 Rx montelukast 10 mg tablet 10 mg PO PM #90 tab 09/25/19 02/04/20 Rx levothyroxine 137 mcg tablet 137 mcg PO DAILY #90 tab 11/19/19 02/04/20 Rx omeprazole 40 mg capsule,delayed 40 mg PO BID #60 cap 01/28/20 02/04/20 Rx release ibuprofen 200 mg PO Q6H PRN 02/04/20 02/04/20 History gabapentin 100 mg PO HS #30 cap 02/05/20 Rx Past Med/Surg History Medical History (Updated 02/05/20 @ 10:24 by Jose Lew MD) Allergic rhinitis Anxiety Asthma CAD (coronary artery disease) Cellulitis of left index finger Chemical burn of respiratory tract Chronic bronchitis Chronic gastritis Environmental allergies GERD (gastroesophageal reflux disease) Hyperlipidemia Hyperplastic colon polyp Hypothyroidism Internal hemorrhoids Ischemic cardiomyopathy Migraine headache 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 NSTEMI (non-ST elevated myocardial infarction) Presence of drug coated stent in LAD coronary artery Reactive airway disease Tubular adenoma of colon Unstable angina Vitamin D deficiency Surgical History H/O breast surgery H/O rotator cuff surgery H/O tubal ligation S/P cholecystectomy S/P coronary artery stent placement S/P laparoscopic procedure Family History Aunt Breast cancer maternal Aunt Ovarian cancer maternal Father Myocardial infarction Prostate cancer Cardiac disorder Colon cancer FH: bladder cancer Uncle Myocardial infarction Paternal Mother Lung cancer Lung disease Other Heart disease Hypertension Denies family history of Colorectal cancer Social History Smoking Status: Former smoker Second Hand Exposure: No; Hx Alcohol Use: Yes Alcohol type: beer, wine and hard liquor Hx Substance Use: No Preferred Language: Thai Communication Ability: Effective Visual Impairment: No Limitations Hearing Ability: Normal Day Camp Counselor Required: No Beliefs That Will Affect Care: None Current Living Situation: Alone current occupational status: employed 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, 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 Feels Safe at Home: Yes Childhood Exposure to Second-Hand Smoke: Yes caffeine: Yes during the past year weight has: increased > 10 lbs Dental Care, Regularly: Yes Physical Activity Frequency: Does not Exercise Seatbelt Use: always Sunscreen Use: Yes Review of Systems Review of Systems: All systems reviewed & are unremarkable except as noted in HPI & below Physical Exam 2 Constitutional: well developed and + obese; + not well nourished and no acute distress Eyes: PERRL, conjunctivae normal, anicteric sclerae ENMT: external ear and nose normal, oropharynx normal Neck: trachea midline, no thyromegaly Respiratory: normal respiratory effort, lungs clear to auscultation Cardiovascular: Rate/Rhythm: regular rate and regular rhythm Heart Sounds: no murmur Vessels: no JVD Extremities: normal capillary refill; no calf tenderness and no pedal edema Chest (Breasts): Chest: normal inspection of chest (Chest pain not reproducible on exam) Gastrointestinal (Abdomen): normal bowel sounds, soft, nontender, no hepatosplenomegaly Musculoskeletal: No sclerodactyly Skin: no rashes, warm and dry (No areas of cellulitis, no telangiectasia) Neurologic: moves all extremities and awake; not confused Psychiatric: A+Ox3, euthymic affect Lymphatic: no cervical or axillary lymphadenopathy Results & Data Results & Data ([facility]) Vital Signs (Past 12 Hours) Vital Signs Temp Pulse Resp BP Pulse Ox 02/04/20 18:00 59 L 17 129/85 98 02/04/20 17:30 61 16 125/85 95 02/04/20 17:00 68 13 111/72 95 02/04/20 16:42 71 15 115/71 96 02/04/20 15:55 70 16 132/73 02/04/20 13:50 36.7 C 73 20 142/[address] angio chest PE protocol IMPRESSION: 1. No evidence of pulmonary thromboembolic disease. 2. Mild bronchial wall thickening suggestive of bronchitis or reactive airway disease. 3. No pleural effusion, adenopathy or airspace consolidation typical for pneumonia. 4. Moderate coronary artery calcifications. XR chest 1V portable IMPRESSION: No active disease in the chest. ECG Indication: chest pain Rate (beats per minute): 70 Rhythm: normal sinus Findings: no acute ischemic change Comparison ECG Date: from (February 21, 2019) Change: no significant change Code Status & VTE Plan Code Status Full PG Care Time/CCT Total # of Minutes Spent Total Time Spent with Patient: Total time spent is greater than 50% in coordination of care (as documented) at patient's floor/unit and/or counseling patient: Coding Level of Care Code 55821 OBS Care - Level 3 Diagnoses Chest pain R07.9 Chest pain type: unspecified Tension headache G44.209 CAD (coronary artery disease) I25.10 Ischemic cardiomyopathy I25.5 Presence of drug coated stent in LAD coronary artery Z95.5 Chronic gastritis K29.50 Chronic bronchitis J42 Hypothyroidism E03.9 Depression with anxiety F41.8 (1) Chest pain Chest pain type: unspecified Qualified Code(s): R07.9 - Chest pain, unspecified
[2020-02-04 19:55] LABS: C Reactive Protein 1.52 mg/dl (0-0.29); Troponin I < 0.015 ng/ml (0-0.045)
[2020-02-04 20:43] LABS: Lyme Ab IgG w/WB Rflx Negative (Negative); Lyme Ab IgM w/WB Rflx Negative (Negative)
[2020-02-04] MEDS ORDERED: ACETAMINOPHEN 325 MG TAB PO PRN (20:44)
[2020-02-04] MEDS ORDERED: BUTALBITAL ACETAMINOPHEN CAFF PO PRN (20:44)
[2020-02-04] MEDS ORDERED: IPRATROPIUM BROMIDE HFA INHALER INH PRN (20:44)
[2020-02-04] MEDS ORDERED: NITROGLYCERIN SL 0.4 MG/TAB TAB SL PRN (20:44)
[2020-02-04] MEDS ORDERED: METOPROLOL SUCC 25MG EXT REL TAB PO SCH (21:00)
[2020-02-04] MEDS ORDERED: MONTELUKAST SODIUM 10 MG TABLET PO SCH (21:00)
[2020-02-04] MEDS ORDERED: LOSARTAN POTASSIUM 25 MG TAB PO SCH (21:00)
[2020-02-04] MEDS: LACTATED RINGER'S 1,000 ML IV SCH (21:29)
[2020-02-04] MEDS: ASPIRIN 81 MG ECTAB PO SCH (21:32)
[2020-02-04] MEDS: PANTOprazole 40 MG TAB PO SCH (21:32)
[2020-02-04 21:55] LABS: Appearance Urine Cloudy (Clear); Bacteria Urine Automated 1+ (Negative); Bilirubin Urine Negative (Negative); Blood Urine Negative (Negative); Color Urine Yellow; Epithelial Cell Urine Auto >30 /lpf (0-5); Glucose Urine UA Negative (Negative); Ketones Urine Negative (Negative); Leukocyte Esterase Urine Negative (Negative); Nitrite Urine Negative (Negative); Protein Urine Negative (Negative); RBC Urine Automated 0-4 /hpf (0-4); Specific Gravity Urine > 1.045 (1.000-1.030); Urobilinogen Urine Negative (Negative)
[2020-02-04] MEDS: OXYCODONE HCL IR 5 MG TAB (IMMEDIATE RELEASE) PO PRN (21:58)
[2020-02-04 22:09] LABS: Cast Urine Automated 0 /lpf (0-5)
[2020-02-04] MEDS: FEXOFENADINE 60 MG TAB PO SCH (22:21)
[2020-02-05] MEDS: OXYCODONE HCL IR 5 MG TAB (IMMEDIATE RELEASE) PO PRN ×2 (03:18→09:05)
[2020-02-05] MEDS: LACTATED RINGER'S 1,000 ML IV SCH (05:17)
[2020-02-05] MEDS ORDERED: LEVOTHYROXINE SODIUM 137 MCG TABLET PO SCH (06:30)
[2020-02-05 07:02] LABS: Basophils # (auto) 0.03 K/uL (0-0.2); Basophils % (auto) 0.5 %; Eosinophils % (auto) 3.3 %; Hematocrit (blood only) 33.3 % (37-47); Immature Granulocytes # (auto) 0.02 K/uL (0.00-0.02); Immature Granulocytes % (auto) 0.3 %; Lymphocytes # (auto) 2.85 K/uL (1.2-3.4); Lymphocytes % (auto) 47.3 %; Mean Corpuscular Hemoglobin 24.5 pg (25-34); Mean Corpuscular Volume 81.6 fL (80-100); Mean Platelet Volume 9.8 fL (7.4-10.4); Monocytes # (auto) 0.47 K/uL (0.11-0.59); Monocytes % (auto) 7.8 %; Neutrophils # (auto) 2.46 K/uL (1.4-6.5); Neutrophils % (auto) 40.8 %; Platelet Count 265 K/uL (130-400); RDW Coefficient of Variation 17.1 % (11.5-14.5); RDW Standard Deviation 51.3 fL (36.4-46.3); Red Blood Count 4.08 M/uL (4.2-5.4); White Blood Count 6.03 K/uL (4.8-10.8)
[2020-02-05 07:30] LABS: BUN Creatinine Ratio 15.5 (10-20); Calcium 8.7 mg/dl (8.5-10.1); Creatinine Clr Calc Pharmacy 99.8 ml/min; Magnesium 2.2 mg/dl (1.8-2.4); Potassium 4.1 mmol/L (3.5-5.1)
[2020-02-05] MEDS: ASPIRIN 81 MG ECTAB PO SCH (07:53)
[2020-02-05] MEDS: FEXOFENADINE 60 MG TAB PO SCH (07:54)
[2020-02-05] MEDS: PANTOprazole 40 MG TAB PO SCH (07:55)
[2020-02-05 08:01] VITALS: TEMP 98.1
[2020-02-05] MEDS ORDERED: KETOROLAC 30 MG/ML VIAL IV PRN (08:44)
[2020-02-05] MEDS ORDERED: UMECLIDINIUM BROMIDE 62.5MCG/BLISTER 7 PUFFS/INHALER INH SCH (09:00)
[2020-02-05] MEDS ORDERED: OMEGA-3 (PURIFIED FISH OIL) 1 GM CAP PO SCH (09:00)
[2020-02-05] MEDS ORDERED: CYANOCOBALAMIN 500 MCG TABLET (VITAMIN B-12) PO SCH (09:00)
[2020-02-05] MEDS ORDERED: CITALOPRAM 40 MG TAB PO SCH (09:00)
[2020-02-05] MEDS ORDERED: ATORVASTATIN 40 MG TAB PO SCH (09:00)
[2020-02-05] MEDS ORDERED: FEXOFENADINE HCL 180 MG TAB PO SCH (09:00)
[2020-02-05] MEDS ORDERED: MULTIVITAMIN TAB PO SCH (09:00)
[2020-02-05] MEDS ORDERED: CHOLECALCIFEROL 1,000 UNITS 25 MCG TAB PO SCH (09:00)
[2020-02-05 10:00] LABS: Estimated Average Glucose 123 mg/dl; Hemoglobin A1C 5.9 % (4.5-5.6)
[2020-02-05 11:32] VITALS: PULSE 58; O2SAT 93
[2020-02-05 13:20] VITALS: BP 133/85
--- NOTE | 2020-02-05 16:07 | Discharge Summary ---
Date of Service February 05, 2020 Admission HPI Per Admitting Provider Pain today higher up on left side. Severity 01/28, when she came to the ER, prior to nitro. took x2 before ambulance came around 12:30pm. Currently /10. Initial came on at 12pm while driving. on breathing. stabbing pain. Left arm felt havy and numb. Associated mild SOB, diaphoresis, nauseous. Delivers prescriptions. Headache 01/28 - a lot of headaches lately. Under a lot of stress. SD in 2016. LAD stent placed here. under Dr Murray. lower down more central pain. Taking all pills regularly. Reflux well controlled recently omeprazole 40mg BID 3-4 days of headaches. Usually gets migraines but current headache won't go away. Neck, eyes, Principal Diagnosis Non-cardiac chest pain -> Possibly fibromyalgia Discharge Exam Constitutional WD/WN, vitals as above Eyes EOM intact bilaterally; no conjunctival abnormality ENMT external ear and nose normal, oropharynx normal Neck trachea midline, no thyromegaly normal visual inspection Respiratory normal respiratory effort, lungs clear to auscultation no respiratory distress Cardiovascular RRR, no murmur, no edema Gastrointestinal (Abdomen) Inspection/Auscultation: abdomen normal to inspection; abdomen not distended Musculoskeletal no cyanosis or clubbing, extremities motor strength 5/5 Shoulders tender to palpation Skin no rashes, warm and dry Neurologic moves all extremities and awake Psychiatric Orientation: alert, oriented to person and cooperative Discharge Data Allergies Allergy/AdvReac Type Severity Reaction Status Date / Time adhesive Allergy Intermediate HIVES Verified 02/04/20 15:10 amoxicillin AdvReac Severe Hives Verified 02/04/20 15:10 morphine AdvReac Intermediate GI UPSET Verified 02/04/20 15:10 Consultations 02/04/20 17:12 ED Decision to Admit Stat Ordered Studies 02/04/20 16:04 CT angio chest PE protocol Stat Hospital Course (1) Chest pain: Atypical for cardiac chest pain. - Troponins all negative. Patient was tender in the chest area and shoulders. Reported that sometimes her 8 lbs dog "hurts" her walking across her. Seemed especially sensitive in tender points for fibromyalgia. ESR/CRP both mildly elevated, but not specific for any given disease process. Lyme titers, TSH, and A1c all normal. - RF and COREY pending on discharge. - Discussed the possibility of fibromyalgia and initial treatment options. Will follow up with PCP in 1 week to follow up on autoimmune labs and to see how she is doing. (2) Tension headache: Acetaminophen PRN Heating pad (3) CAD (coronary artery disease): Continue aspirin 81 mg p.o. daily, metoprolol succinate 25 mg ER p.o. daily, losartan 25 mg p.o. daily, atorvastatin 80 mg p.o. daily. (4) Ischemic cardiomyopathy: Continue metoprolol succinate and losartan as above. (5) Presence of drug coated stent in LAD coronary artery: Notable history of this but with multiple negative myocardial perfusion scans since. (6) Chronic gastritis: Elevate head of bed > 30 degrees at all times Continue omeprazole 40 mg p.o. twice daily for hospital equivalent. Patient reports no longer taking Carafate. (7) Chronic bronchitis: No acute exacerbation of this suspected. Continue Spiriva and albuterol as needed. (8) Hypothyroidism: TSH with a.m. labs Continue levothyroxine 137 mcg p.o. daily (9) Depression with anxiety: Continue citalopram 40 mg p.o. daily. - Could consider switching to SNRI if pain becomes more an issue than anxiety. Tough to make this decision. Total Time Total Time Spent Total Time Spent (In Minutes): 35 Discharge Plan Discharge Items Patient Disposition: Home - Self-Care Reason For Visit: CHEST PAIN Discharge Diagnosis: Chest & back pain; possible fibromyalgia Activity: Resume your previous activity Non-emergency contact: Primary Care Provider Call non-emergency contact if: your symptoms worsen and your pain is not controlled Follow-up/Referrals: Angelita Barr, [Primary Care Provider] - 02/12/20 9:20 am (Please call [phone] if you need to reschedule this appointment.) Diet: Heart Healthy Addtl Attending Provider Instructions: Ms. Guadalupe, You were admitted to the hospital with chest, shoulder, and back pain. Given your heart history, we were worried about a heart attack. Luckily, all your troponins are negative, meaning you DID NOT have a heart attack. Your pain centered on the chest with a wrap around to the shoulders and back. You also had sensitivity to touch on the shoulders in points that are sometimes called "tender points." You also mentioned that your dog walking on you sometimes causes pain, even though he is only 8 pounds. We sent some blood work for diseases such as lupus and rheumatoid arthritis, but these will not be back for about 5 days. Please follow up with your PCP to see if any of these are positive. We did check for Lyme disease which is negative. In the meantime, try to do some light walking and build up an exercise regimen. Exercise can help "reprogram" the brain to stop interpreting normal pressure as pain signals and is the first and best treatment for fibromyalgia. We are also going to start a low-dose medication called gabapentin which can help with fibromyalgia. If the dose is not effective after another week or two, please discuss it with Dr. Barr at your next visit. Gabapentin can be sedating, so do not mix it with alcohol or other sedative medications. Do not drive after taking it until you are sure how it effects you. Another option is switching over from citalopram to a medication called duloxetine; however, this takes some time and care, and I would like to see how the gabapentin and exercise work first. Dr. Barr can help you with this if it is needed. Pending Studies at Discharge: Yes Studies:: Lupus and rheumatoid arthritis lab work Stand-Alone Forms: [facility], Smoking Cessation Medications and DC Order Prescriptions: New gabapentin 100 mg capsule 100 mg PO HS Qty: 30 RF: 0 Continued naproxen 500 mg tablet 500 mg PO BID PRN (Reason: pain) Qty: 60 RF: 2 atorvastatin 80 mg tablet 80 mg PO DAILY Qty: 90 RF: 3 metoprolol succinate 25 mg tablet extended release 24 hr 25 mg PO DAILY Qty: 90 RF: 1 losartan 25 mg tablet 25 mg PO DAILY Qty: 90 RF: 3 lltgtcykhq-mzwjrpspvgiis-wulk 50-300-40 mg capsule 1 cap PO Q4H PRN (Reason: Migraine Headache) Qty: 10 RF: 0 citalopram 40 mg tablet 40 mg PO DAILY Qty: 30 RF: 5 montelukast 10 mg tablet 10 mg PO PM Qty: 90 RF: 1 levothyroxine 137 mcg tablet 137 mcg PO DAILY Qty: 90 RF: 1 omeprazole 40 mg capsule,delayed release(DR/EC) 40 mg PO BID Qty: 60 RF: 5 azelastine 137 mcg (0.1 %) aerosol,spray 2 sprays intranasal DAILY Qty: 1 RF: 0 hydroxyzine HCl 25 mg tablet 25 mg PO TID PRN (Reason: NEEDED) Qty: 30 RF: 0 cholecalciferol (vitamin D3) 5,000 unit capsule 5,000 units PO DAILY Qty: 90 RF: 0 Atrovent HFA 17 mcg/actuation HFA aerosol inhaler 2 puffs INH DIRECTED RF: 0 Spiriva Respimat 2.5 mcg/actuation mist 2 puffs INH DAILY RF: 0 fexofenadine [Diana Allergy] 180 mg tablet 180 mg PO DAILY RF: 0 betamethasone dipropionate 0.05 % ointment 1 appln topical BID PRN (Reason: itching) Qty: 1 RF: 0 aspirin 81 mg Tablet,Delayed Release (Dr/Ec) 81 mg PO DAILY RF: 0 multivitamin [Multiple Vitamins] Tablet 1 tab PO DAILY RF: 0 omega-3 fatty acids 1,000 mg Capsule 1,000 mg PO DAILY RF: 0 cyanocobalamin (vitamin B-12) 1,000 mcg Tablet 1,000 mcg PO DAILY RF: 0 albuterol sulfate 90 mcg/actuation Hfa Aerosol Inhaler 2 puff INHALATION QID PRN (Reason: Shortness Of Breath Or Wheezing) RF: 0 ibuprofen 200 mg Tablet 200 mg PO Q6H PRN (Reason: Pain) RF: 0 nitroglycerin [Nitrostat] 0.4 mg tablet, sublingual 0.4 mg Sublingual DIRECTED PRN (Reason: chest pain) RF: 0 sucralfate 100 mg/mL suspension 10 ml PO ACHS Qty: 420 RF: 0 Discharge Orders: Discharge Order (Routine); Ordered 02/05/20 Ordered By: Luciano Carrington/Other Patient Handouts: Understanding Fibromyalgia, Managing Fibromyalgia Admission Data Admit Date/Time: 02/04/20 19:26 Attending Provider: Luciano Kaur Admit Provider: Jose Lew Primary Care Provider: Angelita Barr Other Providers: Luciano Kaur Other Interventions: Discharge Summary Assessment (RN) Last Done: 02/05/20 13:19 Coding Level of Care Code 08298 OBS Care - Discharge Diagnoses Chest pain R07.9 Chest pain type: unspecified Tension headache G44.209 CAD (coronary artery disease) I25.10 Ischemic cardiomyopathy I25.5 Presence of drug coated stent in LAD coronary artery Z95.5 Chronic gastritis K29.50 Chronic bronchitis J42 Hypothyroidism E03.9 Depression with anxiety F41.8
--- NOTE | 2020-02-05 19:46 | Electrocardiogram Report ---
Test Reason : Blood Pressure : / mmHG Vent. Rate : 073 BPM Atrial Rate : 073 BPM P-R Int : 186 ms QRS Dur : 088 ms QT Int : 412 ms P-R-T Axes : 045 037 049 degrees QTc Int : 453 ms Normal sinus rhythm When compared with ECG of 21-FEB-2019 06:47, No significant change was found Confirmed by Keyon Conner ([id number]) on 02/05/2020 7:45:59 PM Referred By: REFERRED SELF Confirmed By:Keyon Conner
--- NOTE | 2020-02-05 19:47 | Electrocardiogram Report ---
Test Reason : Blood Pressure : / mmHG Vent. Rate : 070 BPM Atrial Rate : 070 BPM P-R Int : 194 ms QRS Dur : 088 ms QT Int : 434 ms P-R-T Axes : 065 077 032 degrees QTc Int : 468 ms Normal sinus rhythm Normal ECG When compared with ECG of 04-FEB-2020 13:43, No significant change was found Confirmed by Keyon Conner ([id number]) on 02/05/2020 7:47:03 PM Referred By: REFERRED SELF Confirmed By:Keyon Conner
[2020-02-06 11:26] LABS: Anti Nuclear Antibody Screen NEGATIVE (NEGATIVE); Rheumatoid Factor <14 IU/mL (<14)
== END 2020-02-05 14:34 | disposition home or self-care (01) ==
LOC: 2N 13:34 → ED 13:34 → SUATTDRO 19:26 → 2N 20:16
DX: I25.2 Old myocardial infarction; K21.9 Gastro-esophageal reflux disease without esophagitis; E55.9 Vitamin D deficiency, unspecified; Z88.1 Allergy status to other antibiotic agents; F41.8 Other specified anxiety disorders; Z79.82 Long term (current) use of aspirin; J45.909 Unspecified asthma, uncomplicated; I25.10 Atherosclerotic heart disease of native coronary artery without angina pectoris; Z87.891 Personal history of nicotine dependence; J42 Unspecified chronic bronchitis; Z79.890 Hormone replacement therapy; Z79.899 Other long term (current) drug therapy; Z95.5 Presence of coronary angioplasty implant and graft; E03.9 Hypothyroidism, unspecified; K29.50 Unspecified chronic gastritis without bleeding; E78.5 Hyperlipidemia, unspecified; R07.9 Chest pain, unspecified; G44.209 Tension-type headache, unspecified, not intractable; I25.5 Ischemic cardiomyopathy; Z88.8 Allergy status to other drugs, medicaments and biological substances; Z88.5 Allergy status to narcotic agent

== ENCOUNTER 2023-06-19 08:50 | Observation (INO) ==
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
[2023-06-19] MEDS ORDERED: NITROGLYCERIN 2% OINTMENT 30GM TUBE EXT ONE (09:04)
[2023-06-19] MEDS ORDERED: MoRPHine SULFATE 4 MG/ML 1 ML CARP\\VIAL IV STA (09:04)
[2023-06-19] MEDS ORDERED: SODIUM CHLORIDE 0.9% 500 ML IV STA (09:04)
[2023-06-19] MEDS ORDERED: NITROGLYCERIN 2% OINTMENT 30GM TUBE EXT STA (09:04)
[2023-06-19] MEDS ORDERED: ACETAMINOPHEN 1,000 MG/100 ML VIAL IV STA (09:11)
[2023-06-19 09:23] LABS: Basophils # (auto) 0.08 K/uL (0.00-0.20); Basophils % (auto) 0.8 %; Hematocrit (blood only) 40.7 % (37.0-47.0); Hemoglobin 13.6 g/dl (12.0-16.0); Immature Granulocytes # (auto) 0.04 K/uL (0.01-0.20); Immature Granulocytes % (auto) 0.4 %; Lymphocytes # (auto) 3.49 K/uL (1.20-3.40); Lymphocytes % (auto) 35.5 %; Mean Corpuscular Hemoglobin 29.5 pg (25.0-34.0); Mean Corpuscular Hgb Conc 33.4 g/dL (32.0-36.0); Mean Corpuscular Volume 88.3 fL (80.0-100.0); Monocytes # (auto) 0.49 K/uL (0.11-0.59); Neutrophils # (auto) 5.53 K/uL (1.40-6.50); Neutrophils % (auto) 56.3 %; Platelet Count 259 K/uL (130-400); RDW Coefficient of Variation 15.2 % (11.5-14.5); RDW Standard Deviation 49.1 fL (36.4-46.3); Red Blood Count 4.61 M/uL (4.20-5.40); White Blood Count 9.83 K/ul (4.8-10.8)
[2023-06-19] MEDS ORDERED: Heparin IV Adult Wt-Based Low-Dose *NO* INITIAL Bolus Protocol IV STA (09:34)
[2023-06-19 09:37] LABS: Albumin Globulin Ratio 1.5 (0.9-2); Albumin Level 3.9 gm/dl (3.4-5.0); BUN Creatinine Ratio 17.1 (10-20); Bilirubin,Total 0.4 mg/dl (0.2-1.0); Calcium 9.4 mg/dl (8.6-10.3); Creatinine Clr Calc Pharmacy 95.2 ml/min; Est GFR (Non-African American) 81.1 ml/min; Globulin 2.6 gm/dl (2.5-4.0); Potassium 3.9 mmol/L (3.5-5.1); Total Protein 6.5 gm/dl (6.0-8.3)
--- NOTE | 2023-06-19 09:45 | XRay Report ---
XR chest 1V portable HISTORY: Chest pain, nonspecific COMPARISON: Chest 10/02/2022. FINDINGS: No pneumothorax. No pleural effusions. The lungs are clear. The heart is normal in size. No acute fractures identified. No evidence for pulmonary edema. A left coronary artery stent is noted. IMPRESSION: No acute process. ACT 112: Negative or not required by law. Electronically signed by: Frank Cruz M.D. 06/19/2023 9:44 AM
[2023-06-19 09:47] LABS: INR 0.9 (0.9-1.1); Partial Thromboplastin Ratio 1.1; Partial Thromboplastin Time 31 Seconds (21-31)
[2023-06-19] MEDS ORDERED: fentaNYL citrate PF 100 MCG/2 ML VIAL IV STA (09:54)
[2023-06-19] MEDS ORDERED: HEPARIN SODIUM/DEXTROSE 25,000 UNITS/500 ML BAG IV SCH (10:00)
[2023-06-19] MEDS ORDERED: MAGNESIUM SULFATE / D5W 1 GM/100 ML BAG IV ONE (10:06)
[2023-06-19] MEDS ORDERED: ONDANSETRON INJ 2 MG/ML 2 ML VIAL IV STA (10:06)
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
[2023-06-19] MEDS ORDERED: OPTIRAY 320 125ml IV ONE (10:57)
--- NOTE | 2023-06-19 11:09 | CT Scan Report ---
CT head/brain wo con CLINICAL HISTORY: 52 years-old Female with headache. Acute headache with nausea TECHNIQUE: Multiple axial CT images of the head were obtained without contrast. A dose lowering tech nique was utilized adhering to the principles of ALARA. COMPARISON: CTA head of same day FINDINGS: No acute intracranial hemorrhage, midline shift, intracranial mass, hydrocephalus, territorial ischem ia or abnormal extra-axial collection. The calvarium is intact. The paranasal sinuses, mastoid air cells, and middle ear cavities are clear . IMPRESSION: No acute intracranial abnormality. ACT 112: Negative or not required by law. The above report was generated using voice recognition software. It may contain grammatical, syntax o r spelling errors. Electronically signed by: Josue Hodges M.D. 06/19/2023 11:07 AM
--- NOTE | 2023-06-19 11:21 | CT Scan Report ---
CT ANGIOGRAM OF THE BRAIN CLINICAL HISTORY: Headache. Left upper extremity weakness. Nausea. Vomiting. COMPARISON STUDY: Unenhanced CT of the brain performed concurrently on 06/19/2023. TECHNIQUE: Following the IV administration of 118 cc of Optiray 320, CT angiogram of the brain was pe rformed from the skull base to the vertex. Images are reviewed in the axial, sagittal, and coronal pl anes. 3-D MIPS images are created and assessed. IV contrast was administered without complication. A dose lowering technique was utilized adhering to the principles of ALARA. There FINDINGS: Brain parenchyma: The brain parenchyma is normal in appearance. There is no evidence of hemorrhage, m ass effect, or acute territorial ischemia noting angiographic phase technique. There is no evidence o f enhancing mass lesion on the angiogram phase images. No extra-axial fluid collection is seen. Thomas- white matter differentiation is preserved. Ventricles, sulci, and cisterns: Normal in configuration. CT angiogram of the brain: The internal carotid arteries are widely patent, as are the anterior and m iddle cerebral arteries. The vertebrobasilar system and posterior cerebral arteries are widely patent . The left vertebral artery is dominant. There is a 3 mm aneurysm at the left middle cerebral artery bifurcation along the sylvian fissure seen on axial image #96 and coronal MIPS image #43. No addition al aneurysm is identified. No foci of high-grade stenosis or focal vessel cutoff are identified throu ghout the intracranial circulation. Dural sinuses: Clear as visualized. Orbits: The bony orbits are intact. The orbital contents are normal as visualized. Sinuses and mastoids: The visualized paranasal sinuses are clear. The mastoid air cells are well pneu matized. Calvarium: Unremarkable. IMPRESSION: 1. There is no evidence of hemorrhage, mass effect, or acute territorial ischemia noting angiographic phase technique. 2. There is a 3 mm aneurysm of the left middle cerebral artery seen along the sylvian fissure. 3. Otherwise unremarkable CT angiogram of the brain. ACT 112: Negative or not required by law. Electronically signed by: Harinder Novoa M.D. 06/19/2023 11:19 AM
[2023-06-19] MEDS ORDERED: PANTOprazole 40 MG in SYRINGE 0 ML IV ONE (11:32)
--- NOTE | 2023-06-19 11:46 | CT Scan Report ---
NECK CTA HISTORY: Left upper extremity weakness, CHAVARRIA, vomiting TECHNIQUE: Multiaxial CT images of the neck were performed following the intravenous administration o f contrast to evaluate the major cervical vessels. 3D/MIP images were also obtained. Sagittal and cor onal reformats were reviewed. All measurements were calculated based on NASCET criteria. A dose low ering technique was utilized adhering to the principles of ALARA. COMPARISON STUDY: None. FINDINGS: The aortic arch and proximal great vessels are widely patent. There is no significant sten osis, occlusion, or dissection identified within the bilateral common carotid, internal carotid, or v ertebral arteries. IMPRESSION: No significant stenosis, occlusion, or dissection identified within the carotid or vertebral arteries . ACT 112: Negative or not required by law. Electronically signed by: Frank Cruz M.D. 06/19/2023 11:45 AM
--- NOTE | 2023-06-19 12:18 | Electrocardiogram Report ---
Test Reason : Blood Pressure : / mmHG Vent. Rate : 064 BPM Atrial Rate : 064 BPM P-R Int : 182 ms QRS Dur : 076 ms QT Int : 416 ms P-R-T Axes : 056 054 073 degrees QTc Int : 429 ms Normal sinus rhythm Normal ECG When compared with ECG of 02-OCT-2022 00:47, No significant change was found Confirmed by Leland Sweet ([id number]) on 06/19/2023 12:18:11 PM Referred By: Confirmed By:Leland Sweet
[2023-06-19] MEDS ORDERED: NITROGLYCERIN SL 0.4 MG/TAB TAB SL PRN (12:56)
[2023-06-19] MEDS ORDERED: ONDANSETRON INJ 2 MG/ML 2 ML VIAL IV PRN (12:56)
[2023-06-19] MEDS ORDERED: ALBUTEROL 0.083% NEBU SOLN 3 ML VIAL INH PRN (12:56)
[2023-06-19] MEDS ORDERED: ACETAMINOPHEN 325 MG TAB PO PRN (12:56)
[2023-06-19] MEDS ORDERED: ALBUTEROL HFA 8 GM INHALER INH PRN (12:56)
--- NOTE | 2023-06-19 16:34 | XCELERA ---
[id number]
[2023-06-19] MEDS: TOPIRAMATE 50 MG TAB PO SCH (20:24)
[2023-06-19] MEDS: PREGABALIN 100 MG CAP PO SCH (20:24)
[2023-06-19] MEDS: DULoxetine HCL 60 MG CAP PO SCH (20:24)
[2023-06-19] MEDS: FAMOTIDINE 20 MG TAB PO SCH (20:24)
[2023-06-19] MEDS: ASPIRIN 81 MG ECTAB PO SCH (20:24)
[2023-06-19] MEDS ORDERED: KETOROLAC TROMETHAMINE 15 MG/ML VIAL IV ONE (20:53)
[2023-06-19] MEDS: CLOBETASOL PROPIONATE 0.05% OINT 15 GM TUBE EXT SCH (23:47)
[2023-06-20] MEDS: LEVOTHYROXINE SODIUM 150 MCG TABLET PO SCH (05:50)
--- NOTE | 2023-06-20 06:57 | Hospitalist Progress Note ---
Date of Service June 20, 2023 Assessment & Plan (1) Left-sided chest pain: Plan: With left-sided jaw and arm pain that started yesterday morning and have since resolved Hx of PA and LAD stent placement; patient reports her symptoms are similar to prior episodes Patient reports that she lost her medical insurance 3 months ago, and has not been taking her medications She notes that she is only consistent with only levothyroxine 150mcg QAM, and aspirin 81mg HS Troponin WNL and has not uptrended Echocardiogram unchanged from 10/2022 Dobutamine Stress test with anterior wall ischemia Cardiac cath was performed 06/20 with 60-70% occlusion LAD, PCI of earlymid LAD with single drug-eluting stent 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 Continue dual-antiplatelet therapy for at least 6 months Consult cardiac Rehab (2) Migraine headache: Plan: Patient reports the migraine headache developed shortly after taking nitroglycerin Head CT revealed NAF 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 seen along the sylvian fissure; will need outpatient f/u Neck CTA revealed NAF Continue topiramate (3) GERD (gastroesophageal reflux disease): Plan: Restart famotidine Restart omeprazole, or pantoprazole equivalent (4) Hyperlipidemia: Plan: Restart Zetia, rosuvastatin (5) Depression with anxiety: Plan: Restart duloxetine (6) Presence of drug coated stent in LAD coronary artery: Plan: Plan as per above (7) Hypertension: Plan: Restart metoprolol Losartan held on admission for hypotension; resume when blood pressures can tolerate (8) Hypothyroidism: Plan: Continue levothyroxine (9) CAD (coronary artery disease): Plan Full code Heart Healthy diet VTE PPx: SCDs Admission and Anticipated Discharge Date Admission Date: June 19, 2023 Supervising Physician Co-Signing Physician Notes I personally examined the patient and verified all bragg points of history and exam, discussed case, and agree with decision making with Dr Anglin Feels fairly fatigued, but no chest pain. Vitals noted, in general she is awake and alert pleasant no distress. HEENT normocephalic atraumatic mucous membranes moist. Breathing unlabored no accessory muscle use good effort. N euro shows cranial nerves II through XII be grossly intact gross motor and sensory are equal and intact. Stress test and catheterization noted. Coronary artery diseasestatus post cath and stenting. Med management, secondary risk reduction. Otherwise as above. Subjective Pt seen at bedside this morning prior to stress test. Was going well, denies on going chest pain/dyspnea at rest. Does note exertional chest pain/dyspnea at home. Review of Systems Review of Systems: As per above Physical Exam Physical Exam: Constitutional: well-appearing, no acute distress HEENT: NCAT, no conjunctival injection CV: regular rhythm, no murmur appreciated, extremities well-perfused, no LE edema Resp: CTABL, no wheezes/rales/rhonchi appreciated, no increased work of breathing GI: soft, nondistended, nontender MSK: no gross deformities appreciated Skin: warm, dry, no rash appreciated Neuro: alert, oriented, no focal neurologic deficit appreciated Results & Data Results & Data Vital Signs (Past 12 Hours) Vital Signs Temp Pulse Pulse Resp BP Pulse Ox O2 Del Method 06/20/23 03:00 36.8 C 52 L 18 101/62 98 Room Air 06/19/23 23:03 58 L 06/19/23 22:13 36.5 C 52 L 18 101/60 97 Room Air 06/19/23 19:30 Room Air 06/19/23 19:02 36.6 C 60 18 116/68 97 Room Air Resident Activity Tracking Resident Involvement: Resident Care Provided Care Provided: Adult Hospital Medicine
[2023-06-20 06:58] LABS: BUN Creatinine Ratio 17.2 (10-20); Calcium 9.1 mg/dl (8.6-10.3); Chol HDL Ratio 7.6 (0-5); Creatinine Clr Calc Pharmacy 86.6 ml/min; Est GFR (African American) 87.5 ml/min; Est GFR (Non-African American) 75.5 ml/min; Potassium 4.2 mmol/L (3.5-5.1)
[2023-06-20 06:59] LABS: Basophils # (auto) 0.06 K/uL (0.00-0.20); Eosinophils # (auto) 0.26 K/uL (0.00-0.50); Eosinophils % (auto) 4.4 %; Hematocrit (blood only) 38.5 % (37.0-47.0); Hemoglobin 12.9 g/dl (12.0-16.0); Immature Granulocytes # (auto) 0.03 K/uL (0.01-0.20); Immature Granulocytes % (auto) 0.5 %; Lymphocytes # (auto) 2.47 K/uL (1.20-3.40); Lymphocytes % (auto) 41.9 %; Mean Corpuscular Hemoglobin 29.6 pg (25.0-34.0); Mean Corpuscular Hgb Conc 33.5 g/dL (32.0-36.0); Mean Corpuscular Volume 88.3 fL (80.0-100.0); Mean Platelet Volume 9.9 fL (9.4-12.4); Monocytes # (auto) 0.49 K/uL (0.11-0.59); Monocytes % (auto) 8.3 %; Neutrophils # (auto) 2.58 K/uL (1.40-6.50); Neutrophils % (auto) 43.9 %; Platelet Count 225 K/uL (130-400); RDW Coefficient of Variation 15.3 % (11.5-14.5); RDW Standard Deviation 49.3 fL (36.4-46.3); Red Blood Count 4.36 M/uL (4.20-5.40); White Blood Count 5.89 K/ul (4.8-10.8)
[2023-06-20 07:03] LABS: Troponin I High Sensitivity 3.9 pg/ml (0-14)
[2023-06-20] MEDS: IPRATROPIUM BROMIDE HFA INHALER INH SCH (07:28)
[2023-06-20] MEDS: CLOBETASOL PROPIONATE 0.05% OINT 15 GM TUBE EXT SCH ×2 (08:23→20:53)
[2023-06-20] MEDS: UMECLIDINIUM BROMIDE 62.5MCG/BLISTER 7 PUFFS/INHALER INH SCH (08:24)
[2023-06-20] MEDS: METOPROLOL SUCC 25MG EXT REL TAB PO SCH (08:24)
[2023-06-20] MEDS: EZETIMIBE 10 MG TAB PO SCH (08:25)
[2023-06-20] MEDS: PANTOprazole 40 MG TAB PO SCH (08:25)
[2023-06-20] MEDS: DULoxetine HCL 60 MG CAP PO SCH ×2 (08:25→20:51)
[2023-06-20] MEDS: ROSUVASTATIN CALCIUM 20 MG TAB PO SCH (08:25)
[2023-06-20] MEDS: TOPIRAMATE 50 MG TAB PO SCH ×2 (08:25→20:52)
[2023-06-20] MEDS: FAMOTIDINE 20 MG TAB PO SCH ×2 (08:25→20:51)
[2023-06-20] MEDS: PREGABALIN 100 MG CAP PO SCH ×2 (08:28→21:23)
[2023-06-20] MEDS ORDERED: DOBUTamine HCL 12.5 MG/ML 20 ML VIAL IV ONE (11:27)
[2023-06-20] MEDS ORDERED: ATROPINE SULFATE 0.1 MG/ML 10ML SYR IV ONE (11:27)
[2023-06-20] MEDS ORDERED: METOPROLOL TARTRATE 1 MG/ML VIAL IV ONE (11:27)
[2023-06-20] MEDS ORDERED: NITROGLYCERIN/D5W 100MCG/ML 20ML SYR ONE (12:22)
[2023-06-20] MEDS ORDERED: MIDAZOLAM HCL 1 MG/ML 2ML VIAL ONE ×2 (12:22→13:27)
[2023-06-20] MEDS ORDERED: fentaNYL citrate PF 100 MCG/2 ML VIAL ONE ×2 (12:22→13:27)
[2023-06-20] MEDS ORDERED: HEPARIN (PORCINE) 1000 UNIT/ML 10 ML (CATH LAB USE ONLY) ONE (12:22)
[2023-06-20] MEDS ORDERED: niCARdipine HCL INJ 2.5 MG/ML 10 ML AMP ONE (12:22)
[2023-06-20] MEDS ORDERED: OPTIRAY 350 ONE (12:24)
--- NOTE | 2023-06-20 12:40 | Pre Anesthesia Assessment ---
Date of Service June 20, 2023 Pre Sedation Assessment Vital Signs Temp Pulse Pulse Resp BP Pulse Ox O2 Del Method 06/20/23 12:14 67 18 140/66 97 Room Air 06/20/23 08:00 55 L 06/20/23 08:00 Room Air 06/20/23 07:36 20 96 Room Air 06/20/23 07:06 97.7 F 54 L 19 112/70 95 Room Air 06/20/23 03:00 98.2 F 52 L 18 101/62 98 Room Air 06/19/23 23:03 58 L 06/19/23 22:13 97.7 F 52 L 18 101/60 97 Room Air 06/19/23 19:30 Room Air 06/19/23 19:02 97.9 F 60 18 116/68 97 Room Air 06/19/23 15:07 56 L 06/19/23 15:07 Room Air 06/19/23 15:05 97.5 F L 47 L 18 143/85 H 100 Room Air 06/19/23 12:57 Room Air Cardiovascular + regular rate Respiratory + respiratory effort normal Pre-Sedation Airway Assessment Smoking Status: Heavy tobacco smoker Hx Sleep Apnea: No Short, Thick Neck: No Thyromental Distance: > or= 3.5 Finger Breadths Oral Cavity: + WNL Mallampati Class: III ASA: ASA3 NPO Status Date of Last Intake of Fluids: 06/20/23 Time of Last Intake of Fluids: 07:00 Date of Last Intake of Solid Food: 06/19/23 Time of Last Intake of Solid Foods: 18:00 Procedure Planning Contraindications for Sedation: none Current Medications Reviewed: Yes Notes The planned sedation has been discussed with the patient. Informed Consent was obtained. I have identified the patient, determined the appropriateness of sedation and have assessed the patient immediately prior to the procedure. All medicine(s) and interventions are by my order.
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
--- NOTE | 2023-06-20 12:57 | Cardiac Catheterization ---
[facility] Data: Returner Cardiac Status Clinical evaluation leading to the procedure CAD Presenation: Positive Stress Test Anginal Classification: CCS IV Diagnostic Physicians Name: Griffin Williamson MD Closure Device Recommendations: PCI without planned CABG Cardiac Cath Procedure Full Procedure Date June 20, 2023 Pre-Procedure Diagnosis Pre-Procedure Diagnosis: Positive Stress Test AUC Score AUC Score: 7 Post-Procedure Diagnosis Post-Procedure Diagnosis: Severe CAD, Successful PCI and Normal Intracardiac Pressures Procedure(s) Performed Procedure(s) Performed: Coronary Angiography, Left Heart Cath, Drug Eluting Stent, IVUS and Fractional Flow [place] [employer] Marine Griffin Williamson MD Management Engineer(s) Torres Estimated Blood Loss Estimated Blood Loss: 10 Medication(s) Medication(s): Clopidogrel, Fentanyl, Heparin, Lidocaine 1%, Nicardipine, Nitroglycerin and Versed Summary of Findings Indication: Unstable angina, high risk stress test with anterior wall ischemia Access: 6 Fr right radial artery Catheters: JL 3.5, JR4, EBU 3.5 guide Findings: LM -normal caliber, no significant disease LAD -large caliber, focal 60 to 70% earlymid LAD stenosis at takeoff of small diagonal/septal. Mid LAD stent widely patent, distal LAD without significant disease and wraps around apex. Jailed small to medium D2 50% ostial. Circumflex -medium caliber, distal segment luminal regularities into left PLB. RCA -large caliber vessel, dominant, 20 to 30% mid segment stenosis. Large PDA, PAV without significant disease. LVEDP -7 FFR/IVUS procedure: -Left main cannulated with EBU 3.5 guide guide -Vang Omni FFR wire placed into distal LAD -IFR 0.89 Vang IVUS placed over FFR wire to mid LAD Pullback revealed widely patent mid LAD stent with mild disease at proximal edge and focal moderate to severe disease with concentric calcium at takeoff first septal just after small diagonal (MLA <4.0 mm) -With high risk abnormal stress test in LAD distribution decision to proceed with PCI -- PCI -- Antithrombotic therapy: Heparin, clopidogrel Procedure: Pre-procedure flow MÓNICA 3 Early mid LAD stenosis stented with 2.75 x 12 mm Brendan drug-eluting Stent post-dilated with 3.5 noncompliant balloon Repeat IVUS showed no distal edge complication. Stent underexpansion in the mid segment and unopposed at proximal edge. Stent redilated with 4.0 NC balloon IC vasodilators administered for spasm Post procedure MÓNICA 3 flow, stent well expanded with minimal residual stenosis and no apparent cardiac complications. Arterial Closure: TR band Summary: 1. Severe single vessel coronary artery disease -60-70% focal earlymid LAD (IFR 0.89), widely patent mid LAD stent 2. Normal intracardiac filling pressure 3. Successful PCI of earlymid LAD with single drug-eluting stent (2.75 x 12 mm Brendan; postdilated with 4.0 NC). Recommendations: To PCU for continued monitoring Loaded with clopidogrel 600 mg in Returner Continue dual-antiplatelet therapy for at least 6 months Continue statin, and ASCVD risk factor modification Consult cardiac Rehab Hemodynamics Rest Ao:: 112/66/90 Final Ao: 97/60/76 LV: 110/7 Recommendations Recommendations: PCI without planned CABG Radiation Exposure (mGy) 2243 Contrast (mls) 90 Anesthesia Moderate 5077-0756 Procedural Complication(s) None Disposition PCU I attest to the content of the Intraoperative Record and any orders documented therein. Any exceptions are noted below. [facility] Card Cath Procedure Codes Cardiac Catheterization Procedure 1: Cardiovascular Cath Procedures: 62672 Coronaries and LHC (+/-LV) Procedure 2: Cardiovascular Cath Procedures: 82457 (Doppler) Pressure Wire Therapeutic Services & Ancillary Procedure 1: Cardiovascular Tx and Anc Procedures: 01837 IV Ultrasound (Coronary or Graft) Moderate Sedation Procedure 1: Sedation/Anesthesia: 47213 Mod Sedation by the same physician;Init15 Min Child Age 5 & Up Procedure 2: Sedation/Anesthesia: 66660 Mod Sedation by the same physician; Ea [id number] Minutes Stenting Procedure 1: Cardiovascular Stent Procedures: 93675 Perc transcatheter placement of i ntracoronary stent(s), with ang PG Care Time/CCT Total # of Minutes Spent Total Time Spent with Patient: Total time spent is greater than 50% in coordination of care (as documented) at patient's floor/unit and/or counseling patient:
--- NOTE | 2023-06-20 13:12 | XCELERA ---
[id number] \\[id number]
[2023-06-20] MEDS ORDERED: CLOPIDOGREL BISULFATE 300 MG TAB ONE (14:27)
--- NOTE | 2023-06-20 14:29 | Post Anesthesia Assessment ---
Date of Service June 20, 2023 Post Sedation Assessment Vital Signs Temp Pulse Pulse Resp BP Pulse Ox O2 Del Method 06/20/23 14:15 48 L 18 107/60 96 Room Air 06/20/23 12:14 67 18 140/66 97 Room Air 06/20/23 08:00 55 L 06/20/23 08:00 Room Air 06/20/23 07:36 20 96 Room Air 06/20/23 07:06 97.7 F 54 L 19 112/70 95 Room Air 06/20/23 03:00 98.2 F 52 L 18 101/62 98 Room Air 06/19/23 23:03 58 L 06/19/23 22:13 97.7 F 52 L 18 101/60 97 Room Air 06/19/23 19:30 Room Air 06/19/23 19:02 97.9 F 60 18 116/68 97 Room Air 06/19/23 15:07 56 L 06/19/23 15:07 Room Air 06/19/23 15:05 97.5 F L 47 L 18 143/85 H 100 Room Air Recovery Score Activity: Moves 4 extremities Respiration: Deep Breath/Cough Circulation: +/-20% PreAnes Value Consciousness: Fully Awake Oxygen Saturation: > 92% On Room Air Post Anesthesia Score: 10 Discharge Sedation Level of Care: Fast Track Phase II Post Sedation Plan On clinical assessment, the patient appears to have tolerated the sedation without complications. Patient is recovering as anticipated. Patient will continue to be monitored by nursing and may be discharged when sedation discharge criteria are met per below protocol. Upon Completions of procedure up to 15 minutes continue every 5 minute vital signs and the P.A.R. score; then discharge to a Phase I or Fast Track to Phase II per the following guidelines: * Discharge Patient to appropriate Phase II area if PAR is 8 or greater or return to pre- procedure baseline. The post - procedure orders will be as directed. * If PAR score is less than 8 or not return to pre-procedure baseline then patient will follow Phase I monitoring till PAR is reached for Phase II. The Phase I may be done in procedure room or may call to secure a Phase I area. * If naloxone or flumazenil are used for reversal, hold in Phase I for continued monitoring from when last reversal dose was given for a minimum of 60 minutes or longer pending the nurse and/or physician discretion of patient condition before discharge to Phase II. Please call the Sedation Physician to re-evaluate and complete post-note for discharge to Phase II area. Do NOT discharge from procedure sedation or Phase 1 until post- sedation evaluation note is complete by procedure /sedation MD Sedation Discharge Instructions to be given to the patient at discharge to home.
[2023-06-20] MEDS ORDERED: SODIUM CHLORIDE 0.9% 500 ML IV SCH (14:30)
--- NOTE | 2023-06-20 15:01 | Electrocardiogram Report ---
Test Reason : Blood Pressure : / mmHG Vent. Rate : 052 BPM Atrial Rate : 052 BPM P-R Int : 190 ms QRS Dur : 076 ms QT Int : 464 ms P-R-T Axes : 070 071 076 degrees QTc Int : 431 ms Sinus bradycardia with sinus arrhythmia Otherwise normal ECG When compared with ECG of 19-JUN-2023 08:56, No significant change was found Confirmed by Leland Sweet ([id number]) on 06/20/2023 3:01:19 PM Referred By: REFERRED SELF Confirmed By:Leland Sweet
--- NOTE | 2023-06-20 15:23 | Electrocardiogram Report ---
Test Reason : Blood Pressure : / mmHG Vent. Rate : 048 BPM Atrial Rate : 048 BPM P-R Int : 174 ms QRS Dur : 080 ms QT Int : 466 ms P-R-T Axes : 056 054 068 degrees QTc Int : 416 ms Sinus bradycardia Otherwise normal ECG When compared with ECG of 19-JUN-2023 10:04, (unconfirmed) No significant change was found Confirmed by Leland Sweet ([id number]) on 06/20/2023 3:22:47 PM Referred By: REFERRED SELF Confirmed By:Leland Sweet
--- NOTE | 2023-06-20 19:54 | Billing Data ---
Date of Service June 20, 2023 Coding Level of Care Code 85664 SUB INP/OBS CARE
--- NOTE | 2023-06-20 19:55 | Communication Note ---
Date of Service: June 20, 2023 Incidental finding of 3 mm left MCA aneurysmon review of guidelines, appears that anything less than 7 mm is really largely for annual monitoring. Discussed with patient
[2023-06-20] MEDS: ASPIRIN 81 MG ECTAB PO SCH (20:51)
[2023-06-21] MEDS: LEVOTHYROXINE SODIUM 150 MCG TABLET PO SCH (05:44)
[2023-06-21 07:01] LABS: Basophils # (auto) 0.07 K/uL (0.00-0.20); Basophils % (auto) 0.8 %; Eosinophils % (auto) 2.4 %; Hematocrit (blood only) 39.9 % (37.0-47.0); Hemoglobin 13.4 g/dl (12.0-16.0); Immature Granulocytes # (auto) 0.04 K/uL (0.01-0.20); Immature Granulocytes % (auto) 0.5 %; Lymphocytes # (auto) 2.77 K/uL (1.20-3.40); Lymphocytes % (auto) 33.6 %; Mean Corpuscular Hemoglobin 29.5 pg (25.0-34.0); Mean Corpuscular Hgb Conc 33.6 g/dL (32.0-36.0); Mean Corpuscular Volume 87.7 fL (80.0-100.0); Monocytes # (auto) 0.56 K/uL (0.11-0.59); Monocytes % (auto) 6.8 %; Neutrophils % (auto) 55.9 %; Platelet Count 233 K/uL (130-400); RDW Coefficient of Variation 15.1 % (11.5-14.5); RDW Standard Deviation 48.4 fL (36.4-46.3); Red Blood Count 4.55 M/uL (4.20-5.40); White Blood Count 8.24 K/ul (4.8-10.8)
--- NOTE | 2023-06-21 07:05 | Hospitalist Progress Note ---
Date of Service June 21, 2023 Assessment & Plan (1) Left-sided chest pain: Plan: With left-sided jaw and arm pain that started yesterday morning and have since resolved Hx of IA and LAD stent placement; patient reports her symptoms are similar to prior episodes Patient reports that she lost her medical insurance 3 months ago, and has not been taking her medications She notes that she is only consistent with only levothyroxine 150mcg QAM, and aspirin 81mg HS Troponin WNL and has not uptrended Echocardiogram unchanged from 10/2022 Dobutamine Stress test with anterior wall ischemia Cardiac cath was performed 06/20 with 60-70% occlusion LAD, PCI of earlymid LAD with single drug-eluting stent Loaded with clopidogrel 600 mg in Linen Room Houseperson Continue dual-antiplatelet therapy for at least 6 months Consult cardiac Rehab (2) Migraine headache: Plan: Patient reports the migraine headache developed shortly after taking nitroglycerin Head CT revealed NAF 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 seen along the sylvian fissure; will need outpatient f/u Neck CTA revealed NAF Continue topiramate (3) GERD (gastroesophageal reflux disease): Plan: Restart famotidine Restart omeprazole, or pantoprazole equivalent (4) Hyperlipidemia: Plan: Restart Zetia, rosuvastatin (5) Depression with anxiety: Plan: Restart duloxetine (6) Presence of drug coated stent in LAD coronary artery: Plan: Plan as per above (7) Hypertension: Plan: Restart metoprolol Losartan held on admission for hypotension; resume when blood pressures can tolerate (8) Hypothyroidism: Plan: Continue levothyroxine (9) CAD (coronary artery disease): Plan Full code Heart Healthy diet VTE PPx: SCDs Admission and Anticipated Discharge Date Admission Date: June 19, 2023 Review of Systems Review of Systems: As per above Physical Exam Physical Exam: Constitutional: well-appearing, no acute distress HEENT: NCAT, no conjunctival injection CV: regular rhythm, no murmur appreciated, extremities well-perfused, no LE edema Resp: CTABL, no wheezes/rales/rhonchi appreciated, no increased work of breathing GI: soft, nondistended, nontender MSK: no gross deformities appreciated Skin: warm, dry, no rash appreciated Neuro: alert, oriented, no focal neurologic deficit appreciated Results & Data Results & Data Vital Signs (Past 12 Hours) Vital Signs Temp Pulse Pulse Resp BP Pulse Ox O2 Del Method 06/21/23 02:41 36.7 C 60 18 100/60 95 Room Air 06/20/23 22:32 36.8 C 45 L 18 106/76 96 Room Air 06/20/23 21:59 45 L 06/20/23 19:25 36.6 C 45 L 18 116/69 96 Room Air
[2023-06-21] MEDS: IPRATROPIUM BROMIDE HFA INHALER INH SCH (07:15)
[2023-06-21 07:45] LABS: BUN Creatinine Ratio 21.3 (10-20); Calcium 9.4 mg/dl (8.6-10.3); Creatinine Clr Calc Pharmacy 100.5 ml/min; Est GFR (African American) 104.7 ml/min; Est GFR (Non-African American) 90.4 ml/min; Potassium 4.1 mmol/L (3.5-5.1)
[2023-06-21] MEDS: EZETIMIBE 10 MG TAB PO SCH (08:35)
[2023-06-21] MEDS: FAMOTIDINE 20 MG TAB PO SCH (08:35)
[2023-06-21] MEDS: CLOBETASOL PROPIONATE 0.05% OINT 15 GM TUBE EXT SCH (08:35)
[2023-06-21] MEDS: ROSUVASTATIN CALCIUM 20 MG TAB PO SCH (08:35)
[2023-06-21] MEDS: PANTOprazole 40 MG TAB PO SCH (08:35)
[2023-06-21] MEDS: TOPIRAMATE 50 MG TAB PO SCH (08:35)
[2023-06-21] MEDS: METOPROLOL SUCC 25MG EXT REL TAB PO SCH (08:36)
[2023-06-21] MEDS: DULoxetine HCL 60 MG CAP PO SCH (08:36)
[2023-06-21] MEDS: UMECLIDINIUM BROMIDE 62.5MCG/BLISTER 7 PUFFS/INHALER INH SCH (08:37)
[2023-06-21] MEDS: PREGABALIN 100 MG CAP PO SCH (08:45)
[2023-06-21] MEDS ORDERED: CLOPIDOGREL BISULFATE 75 MG TAB PO SCH (09:00)
[2023-06-21] MEDS ORDERED: LOSARTAN POTASSIUM 50 MG TAB PO SCH (09:00)
--- NOTE | 2023-06-21 09:54 | Cardiology Progress Note ---
Date of Service June 21, 2023 Assessment & Plan (1) ACS (acute coronary syndrome): (2) CAD (coronary artery disease): Plan: Ms. Guadalupe is a 52 year old female with a history of CAD s/p Acute Anterior ID s/p Proximal LAD CHOCO 04/2016, Hypertension, Hypercholesterolemia, Hyperglycemia, COPD, Hypothyroidism, GERD, Colonic Polyps, Vitamin-D Deficiency, Anxiety/Depression, and Migraine Headaches who presented to [facility] on 06/19/23 with Angina Pectoris. She was in her usual state of health until approximately 8:30 a.m. on the day of presentation (06/19/23). While at work, she began to note Left-Sided Chest Discomfort which radiated to her left jaw and left upper extremity. She had associated nausea and diaphoresis. These symptoms were reminiscent of the angina she had with her ID. She rated the pain at an 8/10. She tried several sublingual nitroglycerin tablets at home without relief. She then called 911. She received Aspirin and another Sublingual Nitroglycerin en route to the hospital, without relief of her symptoms. Once she arrived at the ER, the patient was started on a Heparin drip and her symptoms gradually resolved. High sensitivity troponin I levels 06/19/23 and 06/20/23 were unremarkable at 4.0, 5.1, 6.0, 5.4, and 3.9 pg/mL. Patient subsequently underwent a DSE 06/20/23 to evaluate her chest pain syndrome this morning. Dr. Sweet supervised her DSE and it was abnormal -- as the patient's mid and distal anterior wall became hypokinetic with the dobutamine infusion. She also experienced chest discomfort as her heart rate increased. There were no EKG changes. Patient was then sent to the [facility] with Dr. Williamson an her catheterization showed:Summary: 1. Severe single vessel CAD -- 60%-70% focal earlymid LAD stenosis (IFR 0.89), widely patent mid LAD stent 2. Normal intracardiac filling pressure 3. Successful PCI of earlymid LAD with single drug-eluting stent (2.75 x 12 mm Brendan; postdilated with 4.0 NC). Patient offers no complaints today, she has been up walking around and just took a shower. She has not had any recurrent angina pectoris or anginal equivalent symptoms, overt signs or symptoms of heart failure, nor does she have any symptoms or evidence of dysrhythmia. No complications at the left radial arterial access site. The patient lost her medical insurance and as a result she has not taken any of her medications over the last 3 months -- and her Lipid Panel dated 06/20/23 showed a total cholesterol of 266 mg/dL, LDL is 182 mg/dL, and her HDL is 35 mg/dL. Total cholesterol:HDL ratio is 7.6. Goal LDL is < 70 mg/dL. Her BP appears to be well controlled. Recommend the followin. Aspirin 81 mg daily. 2. Resume Losartan 25 mg daily or [id number] mg daily.. 3. Metoprolol Succinate ER 25 mg daily. 4. Plavix 75 mg daily for a minimum of 1 year. 5. Resume cholesterol lowering regimen as outlined below. 6. Sublingual Nitroglycerin 0.4 mg as directed and as needed. 7. Consult Cardiac Rehabilitation. 8. Avoid nicotine containing substances. 9. Mediterranean diet is recommended. (3) Hypertension: Plan: Her BP appears to be well controlled. -- Continue antihypertensive regimen as outlined above. -- Minimize dietary salt intake. -- Avoid Nicotine. (4) Hyperlipidemia: Plan: Lipid Panel dated 06/20/23 showed a total cholesterol of 266 mg/dL, LDL is 182 mg/dL, and her HDL is 35 mg/dL. Total cholesterol:HDL ratio is 7.6. -- Goal LDL is < 70 mg/dL. -- Rosuvastatin 40 mg daily. -- Zetia 10 mg daily. -- Icosapent 2 grams b.i.d.. -- Recheck FLP in 2 months, if LDL is not at goal -- begin Repatha 140 mg subcutaneous injection every 2 weeks. Patient is stable from a cardiac standpoint for discharge to home. FOLLOW-UP with Kaden Wilkerson PA-C on Sunday06/25/23 at 10:30 a.m. Admission and Anticipated Discharge Date Admission Date: June 19, 2023 Subjective Ms. Guadalupe is a 52 year old female with a history of CAD s/p Acute Anterior ID s/p Proximal LAD CHOCO 04/2016, Hypertension, Hypercholesterolemia, Hyperglycemia, COPD, Hypothyroidism, GERD, Colonic Polyps, Vitamin-D Deficiency, Anxiety/Depression, and Migraine Headaches who presented to [facility] on 06/19/23 with Angina Pectoris. She was in her usual state of health until approximately 8:30 a.m. on the day of presentation (06/19/23). While at work, she began to note Left-Sided Chest Discomfort which radiated to her left jaw and left upper extremity. She had associated nausea and diaphoresis. These symptoms were reminiscent of the angina she had with her ID. She rated the pain at an 8/10. She tried several sublingual nitroglycerin tablets at home without relief. She then called 911. She received Aspirin and another Sublingual Nitroglycerin en route to the hospital, without relief of her symptoms. Once she arrived at the ER, the patient was started on a Heparin drip and her symptoms gradually resolved. High sensitivity troponin I levels 06/19/23 and 06/20/23 were unremarkable at 4.0, 5.1, 6.0, 5.4, and 3.9 pg/mL. Patient subsequently underwent a DSE 06/20/23 to evaluate her chest pain syndrome this morning. Dr. Sweet supervised her DSE and it was abnormal -- as the patient's mid and distal anterior wall became hypo kinetic with the dobutamine infusion. She also experienced chest discomfort as her heart rate increased. There were no EKG changes. Patient was then sent to the [facility] with Dr. Williamson. CARDIAC CATHETERIZATION 06/20/23: LMCA -- Normal caliber, no significant disease LAD -- Large caliber, focal 60% to 70% earlymid LAD stenosis at takeoff of small diagonal/septal. Mid LAD stent widely patent, distal LAD without significant disease and wraps around apex. D2 -- Jailed small to medium D2 50% ostial. LCx -- Medium caliber, distal segment luminal regularities into left PLB. RCA -- Large caliber vessel, dominant, 20% to 30% mid segment stenosis. Large PDA, PAV without significant disease. LVEDP -7 -- IFR 0.89 Vang IVUS placed over FFR wire to mid LAD Pullback revealed widely patent mid LAD stent with mild disease at proximal edge and focal moderate to severe disease with concentric calcium at takeoff first septal just after small diagonal (MLA <4.0 mm) -With high risk abnormal stress test in LAD distribution decision to proceed with PCI -- PCI -- Early mid LAD stenosis stented with 2.75 x 12 mm Brendan drug-eluting Stent post-dilated with 3.5 noncompliant balloon Repeat IVUS showed no distal edge complication. Stent underexpansion in the mid segment and unopposed at proximal edge. Stent re-dilated with 4.0 NC balloon Post procedure MÓNICA 3 flow, stent well expanded with minimal residual stenosis and no apparent cardiac complications. Arterial Closure: Left radial artery TR band Summary: 1. Severe single vessel CAD -- 60%-70% focal earlymid LAD stenosis (IFR 0.89), widely patent mid LAD stent 2. Normal intracardiac filling pressure 3. Successful PCI of earlymid LAD with single drug-eluting stent (2.75 x 12 mm Brendan; postdilated with 4.0 NC). Recommendations: To PCU for continued monitoring Loaded with clopidogrel 600 mg in [facility] Continue dual-antiplatelet therapy for at least 6 months Continue statin, and ASCVD risk factor modification Consult Cardiac Rehab. Patient offers no complaints today, she has been up walking around and just took a shower. She has not had any any recurrent angina pectoris or chest discomfort. She denies any chest pain, heaviness, tightness, pressure or discomfort. She denies SOB, unusual BURK, orthopnea, or PND. She denies any palpitations, syncope, or near syncope. No complications at the left radial arterial access site. She has a history of CAD having sustained an anterior myocardial infarction in April 2016. She had a drug-eluting stent placed in the proximal LAD (Xience 2.25 x 23 mm). There was no significant disease in the other coronary vessels. She then underwent a repeat Cardiac Catheterization May 2016 because of a chest pain syndrome. Fortunately, this noted a patent stent and otherwise n ormal coronary arteries. The patient lost her medical insurance and as a result she has not taken any of her medications over the last 3 months -- and her Lipid Panel dated 06/20/23 showed a total cholesterol of 266 mg/dL, LDL is 182 mg/dL, and her HDL is 35 mg/dL. Total cholesterol:HDL ratio is 7.6. Physical Exam Physical Exam: BP 125/74, pulse 60 to 70's.SpO2 98% on room air. GENERAL: Patient in no acute distress. HEENT: Head is atraumatic, normocephalic. EOM's intact. Facies symmetric. No perioral cyanosis. NECK: No JVD. JVP is not elevated. Carotid upstrokes are + 2 bilaterally without bruits. CHEST/LUNGS: Clear to auscultation throughout all lung kaye. No wheezes, rales, or crackles. CVS: S1 and S2 are regular without murmurs, gallops, or rubs. PMI is nonpalpable. No lifts, heaves, or thrills. No abdominal aortic or renal bruits. ABDOMINAL EXAM: Bowel sounds are present. No masses, organomegaly, or tenderness. EXTREMITIES: No clubbing or cyanosis. No edema. Intact posterior tibial and radial pulses bilaterally. Left ventral wrist with a small pressure dressing over her radial arterial access site. No hematoma. NEUROLOGIC EXAM: Patient is awake, alert, and oriented. Pleasant and cooperative. Answers questions appropriately. Speech is clear. Normal movement in all 4 extremities. Core Feeder: -- NSR to sinus bradycardia. Results & Data Vital Signs (Past 12 Hours) Vital Signs Temp Pulse Pulse Resp BP Pulse Ox O2 Del Method 06/21/23 07:16 70 18 98 Room Air 06/21/23 07:02 36.6 C 54 L 19 125/74 97 Room Air 06/21/23 02:41 36.7 C 60 18 100/60 95 Room Air 06/20/23 22:32 36.8 C 45 L 18 106/76 96 Room Air 06/20/23 21:59 45 L Laboratory Results Laboratory Results - last 24 hr 06/20/23 06/21/23 13:43 06:31 WBC 8.24 RBC 4.55 Hgb 13.4 Hct 39.9 MCV 87.7 MCH 29.5 MCHC 33.6 RDW Std Deviation 48.4 H RDW Coeff of Garcia 15.1 H Plt Count 233 MPV 10.0 Immature Gran % (Auto) 0.5 Neut % (Auto) 55.9 Lymph % (Auto) 33.6 Elk % (Auto) 6.8 Eos % (Auto) 2.4 Baso % (Auto) 0.8 Neut # (Auto) 4.60 Lymph # (Auto) 2.77 Elk # (Auto) 0.56 Eos # (Auto) 0.20 Baso # (Auto) 0.07 Immature Gran # (Auto) 0.04 Activ Coag Time Kaolin 260 H Sodium 136 Potassium 4.1 Chloride 109 H Carbon Dioxide 21 Anion Gap 6 BUN 16 Creatinine 0.75 Est Cr Clr Drug Dosing 100.5 Est GFR ( Amer) 104.7 Est GFR (Non-Af Amer) 90.4 BUN/Creatinine Ratio 21.3 H Glucose 90 Calcium 9.4 Medications Administered Medication List Acetaminophen (Acetaminophen 325 Mg Tab) 650 mg PO Q4H PRN PRN Reason: Pain or Fever Stop: 07/19/23 12:55 Last Admin: 06/19/23 16:51 Dose: 650 mg Documented By: DELANEY Aspirin (Aspirin 81 Mg Ectab) 81 mg PO QPM [facility] Stop: 07/19/23 20:59 Last Admin: 06/20/23 20:51 Dose: 81 mg Documented By: Admin: 06/19/23 20:24 Dose: 81 mg Documented By: IASBEL Clobetasol Propionate (Clobetasol Propionate 0.05% Oint 15 Gm Tube) 1 appln EXT BID [facility] Stop: 07/19/23 20:59 Last Admin: 06/21/23 08:35 Dose: 1 appln Documented By: Admin: 06/20/23 20:53 Dose: 1 appln Documented By: Admin: 06/20/23 08:23 Dose: 1 appln Documented By: Admin: 06/19/23 23:47 Dose: Not Given Documented By: ISABEL Clopidogrel Bisulfate (Clopidogrel Bisulfate 75 Mg Tab) 75 mg PO QAM [facility] Stop: 07/21/23 08:59 Last Admin: 06/21/23 08:36 Dose: 75 mg Documented By: JIMI Duloxetine HCl (Duloxetine Hcl 60 Mg Cap) 60 mg PO BID [facility] Stop: 07/19/23 20:59 Last Admin: 06/21/23 08:36 Dose: 60 mg Documented By: Admin: 06/20/23 20:51 Dose: 60 mg Documented By: Admin: 06/20/23 08:25 Dose: 60 mg Documented By: Admin: 06/19/23 20:24 Dose: 60 mg Documented By: ISABEL Ezetimibe (Ezetimibe 10 Mg Tab) 10 mg PO DAILY [facility] Stop: 07/20/23 08:59 Last Admin: 06/21/23 08:35 Dose: 10 mg Documented By: Admin: 06/20/23 08:25 Dose: 10 mg Documented By: DELANEY Famotidine (Famotidine 20 Mg Tab) 20 mg PO BID [facility] Stop: 07/19/23 20:59 Last Admin: 06/21/23 08:35 Dose: 20 mg Documented By: Admin: 06/20/23 20:51 Dose: 20 mg Documented By: Admin: 06/20/23 08:25 Dose: 20 mg Documented By: Admin: 06/19/23 20:24 Dose: 20 mg Documented By: ISABEL Ipratropium Barry (Ipratropium Barry Hfa Inhaler) 2 puffs INH QDR [facility] Stop: 07/20/23 07:59 Last Admin: 06/21/23 07:15 Dose: 2 puffs Documented By: Admin: 06/20/23 07:28 Dose: 2 puffs Documented By: JAYY Levothyroxine Sodium (Levothyroxine Sodium 150 Mcg Tablet) 150 mcg PO DAILYBB [facility] Stop: 07/20/23 06:29 Last Admin: 06/21/23 05:44 Dose: 150 mcg Documented By: Admin: 06/20/23 05:50 Dose: 150 mcg Documented By: ISABEL Metoprolol Succinate (Metoprolol Succ 25mg Ext Rel Tab) 25 mg PO DAILY [facility] Stop: 07/20/23 08:59 Last Admin: 06/21/23 08:36 Dose: 25 mg Documented By: Admin: 06/20/23 08:24 Dose: 25 mg Documented By: DELANEY Miscellaneous (Icosapent Ethyl [Vascepa]: Order Awaiting Action) 1 each N/A QS [facility] Stop: 07/19/23 15:59 Last Admin: 06/21/23 02:38 Dose: Not Given Documented By: Admin: 06/20/23 17:21 Dose: Not Given Documented By: Admin: 06/20/23 08:23 Dose: Not Given Documented By: Admin: 06/20/23 00:17 Dose: Not Given Documented By: Admin: 06/19/23 15:53 Dose: Not Given Documented By: DELANEY Pantoprazole Sodium (Pantoprazole 40 Mg Tab) 40 mg PO DAILY [facility] Stop: 07/20/23 08:59 Last Admin: 06/21/23 08:35 Dose: 40 mg Documented By: Admin: 06/20/23 08:25 Dose: 40 mg Documented By: DELANEY Pregabalin (Pregabalin 100 Mg Cap) 100 mg PO BID [facility] Stop: 07/19/23 20:59 Last Admin: 06/21/23 08:45 Dose: 100 mg Documented By: Admin: 06/20/23 21:23 Dose: 100 mg Documented By: Admin: 06/20/23 08:28 Dose: 100 mg Documented By: Admin: 06/19/23 20:24 Dose: 100 mg Documented By: ISABEL Rosuvastatin Calcium (Rosuvastatin Calcium 20 Mg Tab) 40 mg PO DAILY [facility] Stop: 07/20/23 08:59 Last Admin: 06/21/23 08:35 Dose: 40 mg Documented By: Admin: 06/20/23 08:25 Dose: 40 mg Documented By: DELANEY Topiramate (Topiramate 50 Mg Tab) 50 mg PO BID [facility] Stop: 07/19/23 20:59 Last Admin: 06/21/23 08:35 Dose: 50 mg Documented By: Admin: 06/20/23 20:52 Dose: 50 mg Documented By: Admin: 06/20/23 08:25 Dose: 50 mg Documented By: Admin: 06/19/23 20:24 Dose: 50 mg Documented By: ISABEL Umeclidinium Barry (Umeclidinium Barry 62.5mcg/Blister 7 Puffs/Inhaler) 1 puffs INH DAILY [facility] Stop: 07/20/23 08:59 Last Admin: 06/21/23 08:37 Dose: 1 puffs Documented By: Admin: 06/20/23 08:24 Dose: 1 puffs Documented By: DELANEY Discontinued Medications Atropine Sulfate (Atropine Sulfate 0.1 Mg/Ml 10ml Syr) Confirm Administered Dose 2 mg IV .STK-MED ONE Stop: 06/20/23 11:28 Last Admin: 06/20/23 12:16 Dose: 0.5 mg Documented By: JUAN J Clopidogrel Bisulfate (Clopidogrel Bisulfate 300 Mg Tab) Confirm Administered Dose 600 mg .ROUTE .STK-MED ONE Stop: 06/20/23 14:28 Last Admin: 06/20/23 14:29 Dose: 600 mg Documented By: ANGELI Dobutamine HCl (Dobutamine Hcl 12.5 Mg/Ml 20 Ml Vial) Confirm Administered Dose 250 mg IV .STK-MED ONE Stop: 06/20/23 11:28 Last Admin: 06/20/23 12:17 Dose: 1 dose Documented By: JUAN J Fentanyl Citrate (Fentanyl Citrate Pf 100 Mcg/2 Ml Vial) 50 mcg IV NOW STA Stop: 06/19/23 09:55 Last Admin: 06/19/23 10:13 Dose: 50 mcg Documented By: ELIAN Fentanyl Citrate (Fentanyl Citrate Pf 100 Mcg/2 Ml Vial) Confirm Administered Dose 100 mcg .ROUTE .STK-MED ONE Stop: 06/20/23 12:23 Last Admin: 06/20/23 13:59 Dose: 100 mcg Documented By: ANGELI Fentanyl Citrate (Fentanyl Citrate Pf 100 Mcg/2 Ml Vial) Confirm Administered Dose 100 mcg .ROUTE .STK-MED ONE Stop: 06/20/23 13:28 Last Increment: 06/20/23 14:10 Dose: 25 mcg Documented By: ANEGLI Heparin Sodium (Porcine) (Heparin (Porcine) 1000 Unit/Ml 10 Ml ([facility] Use Only)) Confirm Administered Dose 10,000 units .ROUTE .STK-MED ONE Stop: 06/20/23 12:23 Last Admin: 06/20/23 13:59 Dose: 8,000 units Documented By: ANGELI Heparin Sodium/Dextrose (Heparin Iv Adult Wt-Based Low-Dose *No* Initial Bolus Protocol) 1 each IV ONE STA; Protocol Stop: 06/19/23 09:35 Last Admin: 06/19/23 11:55 Dose: Not Given Documented By: LEIAN Heparin Sodium/Sodium Chloride (Heparin In Nss Infusion 1000 Unit/500 Ml (2 U/Ml) Bag) Confirm Administered Dose 3,000 units IV .STK-MED ONE Stop: 06/20/23 12:23 Last Admin: 06/20/23 13:15 Dose: 3,000 units Documented By: LOIS Sodium Chloride (Nss) 500 mls @ 999 mls/hr IV .Q31M STA Stop: 06/19/23 09:34 Last Infusion: 06/20/23 21:31 Dose: Infused Documented By: Admin: 06/19/23 09:28 Dose: 999 mls/hr Documented By: ELIAN Acetaminophen (Ofirmev) 1,000 mg in 100 mls @ 400 mls/hr IV NOW STA Stop: 06/19/23 09:25 Last Infusion: 06/19/23 09:37 Dose: 0 mls/hr Documented By: Admin: 06/19/23 09:28 Dose: 400 mls/hr Documented By: ELIAN Heparin Sodium/Dextrose (Heparin Sodium/Dextrose) 25,000 units in 500 mls @ 18 mls/hr IV .Q24H [facility]; Protocol Stop: 07/19/23 09:59 Last Admin: 06/19/23 11:54 Dose: Not Given Documented By: ELIAN Magnesium Sulfate/Dextrose (Magnesium Sulfate / D5w) 1 gm in 100 mls @ 300 mls/hr IV NOW ONE Stop: 06/19/23 10:25 Last Infusion: 06/19/23 12:31 Dose: Infused Documented By: Admin: 06/19/23 10:13 Dose: 300 mls/hr Documented By: ELIAN Pantoprazole Sodium 40 mg/ (Syringe) 10 mls @ 5 mls/min IV NOW ONE Stop: 06/19/23 11:33 Last Admin: 06/19/23 12:32 Dose: 5 mls/min Documented By: ELIAN Sodium Chloride (Nss) 500 mls @ 100 mls/hr IV .Q5H [facility] Stop: 06/20/23 19:29 Last Admin: 06/20/23 15:48 Dose: Not Given Documented By: DELANEY Ioversol (Optiray 320 125ml) 118 ml IV ONCE ONE Stop: 06/19/23 10:58 Last Admin: 06/19/23 10:57 Dose: 118 ml Documented By: SANTOS Ioversol (Optiray 350) Confirm Administered Dose 1 ml .ROUTE .STK-MED ONE Stop: 06/20/23 12:25 Last Admin: 06/20/23 14:10 Dose: 90 ml Documented By: LOIS Ketorolac Tromethamine (Ketorolac Tromethamine 15 Mg/Ml Vial) 10 mg IV NOW ONE Stop: 06/19/23 20:54 Last Admin: 06/19/23 21:27 Dose: 10 mg Documented By: ISABEL Metoprolol Tartrate (Metoprolol Tartrate 1 Mg/Ml Vial) Confirm Administered Dose 10 mg IV .STK-MED ONE Stop: 06/20/23 11:28 Last Admin: 06/20/23 12:17 Dose: 5 mg Documented By: JUAN J Midazolam HCl (Midazolam Hcl 1 Mg/Ml 2ml Vial) Confirm Administered Dose 2 mg .ROUTE .STK-MED ONE Stop: 06/20/23 12:23 Last Admin: 06/20/23 14:01 Dose: 2 mg Documented By: ANGELI Midazolam HCl (Midazolam Hcl 1 Mg/Ml 2ml Vial) Confirm Administered Dose 2 mg .ROUTE .STK-MED ONE Stop: 06/20/23 13:28 Last Increment: 06/20/23 14:10 Dose: 1 mg Documented By: ANGELI Morphine Sulfate (Morphine Sulfate 4 Mg/Ml 1 Ml Carp\Vial) 4 mg IV NOW STA Stop: 06/19/23 09:05 Last Admin: 06/19/23 09:37 Dose: Not Given Documented By: ELIAN Nicardipine HCl (Nicardipine Hcl Inj 2.5 Mg/Ml 10 Ml Amp) Confirm Administered Dose 25 mg .ROUTE .STK-MED ONE Stop: 06/20/23 12:23 Last Admin: 06/20/23 13:15 Dose: 25 mg Documented By: LOIS Nitroglycerin (Nitroglycerin 2% Ointment 30gm Tube) Confirm Administered Dose 18 inch EXT .ST-MED ONE Stop: 06/19/23 09:05 Last Admin: 06/19/23 09:21 Dose: Not Given Documented By: ELIAN Nitroglycerin (Nitroglycerin 2% Ointment 30gm Tube) 0.5 inch EXT NOW STA Stop: 06/19/23 09:05 Last Admin: 06/19/23 09:21 Dose: 0.5 inch Documented By: ELIAN Nitroglycerin/Dextrose (Nitroglycerin/D5w 100mcg/Ml 20ml Syr) Confirm Administered Dose 2,000 mcg .ROUTE .ST-MED ONE Stop: 06/20/23 12:23 Last Admin: 06/20/23 13:15 Dose: 2,000 mcg Documented By: LOIS Ondansetron HCl (Ondansetron Inj 2 Mg/Ml 2 Ml Vial) 4 mg IV NOW STA Stop: 06/19/23 10:07 Last Admin: 06/19/23 10:13 Dose: 4 mg Documented By: ELIAN PG Care Time/CCT Total # of Minutes Spent Total Time Spent with Patient: Total time spent is greater than 50% in coordination of care (as documented) at patient's floor/unit and/or counseling patient:38 [place] [address] SUB INP/OBS CARE 3/50MIN Patient Type Established History Detailed Exam Detailed Medical Decision Making High Complexity Diagnoses ACS (acute coronary syndrome) I24.9 CAD (coronary artery disease) I25.10 Primary hypertension I10 Hypertension type: primary hypertension Hyperlipidemia, unspecified hyperlipidemia type E78.5 Hyperlipidemia type: unspecified Time Spent (min) 58 (3) Hypertension Hypertension type: primary hypertension Qualified Code(s): I10 - Essential (primary) hypertension (4) Hyperlipidemia Hyperlipidemia type: unspecified Qualified Code(s): E78.5 - Hyperlipidemia, unspecified
[2023-06-21] MEDS ORDERED: CLOPIDOGREL BISULFATE 75 MG TAB ONE (10:39)
[2023-06-21] MEDS ORDERED: CLOPIDOGREL BISULFATE 75MG Homepack PO ONE (10:45)
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
--- NOTE | 2023-06-21 16:29 | Billing Data ---
Date of Service June 21, 2023 Coding Level of Care Code 25791 IN/OBS DISCH 30 MIN/LESS
== END 2023-06-21 12:39 | disposition home or self-care (01) ==
LOC: EDINP 08:50 → ED 08:50 → SUATTDRO 12:03 → 2S 12:57

== ENCOUNTER 2025-02-27 15:04 | Observation (INO) ==
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
[2025-02-27] MEDS: SODIUM CHLORIDE 0.9% 500 ML IV ONE (15:49)
[2025-02-27] MEDS: ACETAMINOPHEN 1,000 MG/100 ML VIAL IV STA (15:49)
--- NOTE | 2025-02-27 16:09 | XRay Report ---
Chest radiograph, one view History: Chest pain Comparison: None Findings: Single AP view of the chest performed. No focal consolidation or pleural effusion. No pneumothorax. The cardiomediastinal silhouette is within normal limits. Normal pulmonary vascularity. No evidence for lymphadenopathy. No visualized bony or soft tissue abnormality. Impression: Normal chest radiograph Electronically signed by Griffin Briggs 02-27-2025 4:08 PM
[2025-02-27] MEDS: ONDANSETRON INJ 2 MG/ML 2 ML VIAL IV STA (16:22)
[2025-02-27] MEDS: HYDROmorphone INJ 0.5 MG/0.5 ML SYR IV STA ×2 (16:22→17:33)
[2025-02-27 16:34] LABS: Hematocrit (blood only) 40.9 % (37.0-47.0); Hemoglobin 13.2 g/dl (12.0-16.0); Immature Granulocytes # (auto) 0.03 K/uL (0.01-0.20); Immature Granulocytes % (auto) 0.3 %; Mean Corpuscular Hemoglobin 29.1 pg (25.0-34.0); Mean Corpuscular Volume 90.1 fL (80.0-100.0); Platelet Count 230 K/uL (130-400); RDW Standard Deviation 51.2 fL (36.4-46.3); Red Blood Count 4.54 M/uL (4.20-5.40); White Blood Count 9.70 K/ul (4.8-10.8)
[2025-02-27 16:52] LABS: Alanine Aminotransferase 10.0 U/L (7-52); Albumin Globulin Ratio 1.2 (0.9-2); Albumin Level 3.7 gm/dl (3.4-5.0); Alkaline Phosphatase 99.0 U/L (34-104); Anion Gap 8.0 (3-11); Bilirubin,Total 0.4 mg/dl (0.2-1.0); Blood Urea Nitrogen 12.0 mg/dl (6-23); Calcium 9.1 mg/dl (8.6-10.3); Carbon Dioxide 23.0 mmol/L (21-32); Chloride 109.0 mmol/L (98-107); Creatinine Clr Calc Pharmacy 95.9 ml/min; Globulin 3.1 gm/dl (2.5-4.0); Glucose 79.0 mg/dl (70-99(Fasting)); Lipase 31.0 U/L (11-82); Magnesium 2.1 mg/dl (1.7-2.4); Potassium 3.6 mmol/L (3.5-5.1); Sodium 140.0 mmol/L (136-145); Total Protein 6.8 gm/dl (6.0-8.3)
[2025-02-27 17:03] LABS: INR 1.0 (0.9-1.1); Partial Thromboplastin Time 29 Seconds (21-31); Prothrombin Time 10.3 Seconds (9.0-12.0)
[2025-02-27] MEDS: NITROGLYCERIN 2% OINTMENT 30GM TUBE EXT STA (17:33)
[2025-02-27] MEDS: KETOROLAC TROMETHAMINE 15 MG/ML VIAL IV ONE (17:33)
[2025-02-27] MEDS: OPTIRAY 320 125ml IV ONE (17:48)
--- NOTE | 2025-02-27 18:43 | CT Scan Report ---
Clinical history: Chest pain Technique: Axial computed tomography images were obtained of the chest before and after the administration of intravenous contrast according to the CT angiogram protocol Comparison is made to the prior CT dated 05/01/2022 Findings: There is subsegmental atelectasis in both lower lobes. There are apparent mild emphysema involving the lung apices. There is no pleural effusion or pneumothorax. There is no sign of pulmonary fibrosis or other diffuse interstitial process. No endobronchial lesion is seen There is no mediastinal, hilar, or axillary adenopathy. The thoracic aorta appears unremarkable with no sign of aneurysm or dissection. There is no pericardial effusion. There is coronary atherosclerosis. There is no definite sign of pulmonary embolism. The gallbladder has been removed. There is heterogeneity of the liver, likely due to hepatic venous congestion. No fracture is seen. No focal osseous lesion is evident Impression: 1. No sign of thoracic aortic aneurysm or dissection 2. No definite sign of pulmonary embolism 3. Mild emphysema and mild bilateral lower lobe atelectasis 4. Suspected hepatic venous congestion Electronically signed by Hardy Neumann 02-27-2025 6:43 PM
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
[2025-02-27] MEDS ORDERED: MoRPHine SULFATE 2 MG/ML CARP IV PRN (19:57)
[2025-02-27] MEDS: POTASSIUM CHLORIDE CRTAB 20 MEQ TABCR PO STA (20:27)
[2025-02-27] MEDS: NICOTINE 14 MG/24 HR PATCH TD STA (20:27)
[2025-02-27 20:40] LABS: Chlamydia pneumoniae PCR Not Detected (NotDetected); Coronavirus 229E PCR Not Detected (NotDetected); Coronavirus CoV-2 (COVID19)PCR Not Detected (NotDetected); Coronavirus HKU1 PCR Not Detected (NotDetected); Coronavirus NL63 PCR Not Detected (NotDetected); Coronavirus OC43PCR Not Detected (NotDetected); Human Metapneumovirus PCR Not Detected (NotDetected); Parainfluenza Virus 1 PCR Not Detected (NotDetected); Parainfluenza Virus 2 PCR Not Detected (NotDetected); Parainfluenza Virus 3 PCR Not Detected (NotDetected); Parainfluenza Virus 4 PCR Not Detected (NotDetected); Respiratory Syncytial VirusPCR Not Detected (NotDetected); Rhinovirus/Enterovirus PCR Not Detected (NotDetected)
[2025-02-27] MEDS: ACETAMINOPHEN 325 MG TAB PO STA (21:32)
[2025-02-27] MEDS ORDERED: MoRPHine SULFATE 4 MG/ML 1 ML CARP\\VIAL IV PRN ×2 (22:28→22:45)
[2025-02-27] MEDS ORDERED: ALBUTEROL HFA 8 GM INHALER INH PRN (22:28)
[2025-02-27] MEDS ORDERED: ONDANSETRON INJ 2 MG/ML 2 ML VIAL IV PRN (22:28)
[2025-02-27] MEDS ORDERED: DOCUSATE SODIUM 100 MG CAP PO PRN (22:28)
[2025-02-27] MEDS ORDERED: ACETAMINOPHEN 325 MG TAB PO PRN (22:28)
[2025-02-27] MEDS: PREGABALIN 75 MG CAP PO SCH (23:27)
[2025-02-27] MEDS: busPIRone 15 MG TAB PO SCH (23:28)
[2025-02-27] MEDS: FAMOTIDINE 20 MG TAB PO SCH (23:28)
[2025-02-27] MEDS: BUTALBITAL/ACETAMIN/CAFFEINE TAB PO STA (23:28)
[2025-02-27] MEDS: TOPIRAMATE 100 MG TAB PO SCH (23:29)
[2025-02-27] MEDS: AMITRIPTYLINE HCL 10 MG TAB PO SCH (23:30)
[2025-02-27] MEDS: INFLUENZA VACC TS2025-26(6m+)/PF (IIV3) 0.5mL Syr IM ONE (23:32)
[2025-02-28] MEDS: HYDROmorphone INJ 0.5 MG/0.5 ML SYR IV PRN ×2 (02:18→09:41)
[2025-02-28] MEDS: MELATONIN 3 MG TAB PO PRN (02:21)
[2025-02-28 02:52] LABS: Hematocrit (blood only) 40.3 % (37.0-47.0); Hemoglobin 13.1 g/dl (12.0-16.0); Immature Granulocytes # (auto) 0.03 K/uL (0.01-0.20); Immature Granulocytes % (auto) 0.4 %; Mean Corpuscular Hemoglobin 29.0 pg (25.0-34.0); Mean Corpuscular Volume 89.4 fL (80.0-100.0); Platelet Count 230 K/uL (130-400); RDW Standard Deviation 51.1 fL (36.4-46.3); Red Blood Count 4.51 M/uL (4.20-5.40); White Blood Count 7.33 K/ul (4.8-10.8)
[2025-02-28 03:09] LABS: Anion Gap 7.0 (3-11); Blood Urea Nitrogen 13.0 mg/dl (6-23); Calcium 9.2 mg/dl (8.6-10.3); Carbon Dioxide 21.0 mmol/L (21-32); Chloride 109.0 mmol/L (98-107); Cholesterol 144.0 mg/dl (0-200); Creatinine Clr Calc Pharmacy 86.0 ml/min; Glucose 106.0 mg/dl (70-99(Fasting)); HDL Cholesterol 37.0 mg/dl; Magnesium 2.1 mg/dl (1.7-2.4); Potassium 4.2 mmol/L (3.5-5.1); Sodium 137.0 mmol/L (136-145); Triglycerides 226.0 mg/dl (0-150)
[2025-02-28 07:28] LABS: Hemoglobin A1C 5.6 % (4.5-5.6)
[2025-02-28] MEDS: LEVOTHYROXINE SODIUM 137 MCG TABLET PO SCH (07:33)
[2025-02-28] MEDS ORDERED: REMOVE NICODERM PATCH SCH (08:59)
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
[2025-02-28] MEDS: ROSUVASTATIN CALCIUM 20 MG TAB PO SCH (09:36)
[2025-02-28] MEDS: CLOPIDOGREL BISULFATE 75 MG TAB PO SCH (09:36)
[2025-02-28] MEDS: ASPIRIN 81 MG ECTAB PO SCH (09:37)
[2025-02-28] MEDS: MONTELUKAST SODIUM 10 MG TABLET PO SCH (09:37)
[2025-02-28] MEDS: REMOVE NICODERM PATCH SCH (09:38)
[2025-02-28] MEDS: EZETIMIBE 10 MG TAB PO SCH (09:38)
[2025-02-28] MEDS: NICOTINE 14 MG/24 HR PATCH TD SCH (09:39)
[2025-02-28] MEDS: UMECLIDINIUM BROMIDE 62.5MCG/BLISTER 7 PUFFS/INHALER INH SCH (09:39)
--- NOTE | 2025-02-28 10:43 | Hospitalist Progress Note ---
Date of Service February 28, 2025 Assessment & Plan (1) Chest pain: (2) History of coronary artery disease: (3) Tobacco abuse: (4) Headache: Plan 54yo female with known CAD ([place] 04/2016, LAD stent 05/2016, CHOCO to LAD 05/2023), migraines (follows with Dr. David Montilla), Hyperlipidemia, hypothyroidism, asthma, tobacco use. Presented with 2-3 days of intermittent chest pain that is midsternal, radiates to left arm, and occurs both at rest and on exertion. Chest pain was relieved with nitroglycerin at home and Nitropaste in the ED. #Chest pain with known CAD - -all troponins negative -EKGs w/o ischemic changes -echo today with preserved EF and normal LV wall motion -[id number], given that her symptoms are similar to when she had her OH and her prior stents, Dr Conner from [facility] [place] Cardiology advising L heart cath on Sunday -in meantime - cont asa, plavix, zetia, crestor -if she has recurrent pain place on low-dose heparin infusion protocol -appreciate consult by Dr Conner #left shoulder pain - -seems c/w rotator cuff syndrome (tendonitis/bursitis) -start with L shoulder x-rays -pain meds prn -avoid NSAIDs in setting of chest pain/CAD #Headache - -improved today -known migraines -headache induced by nitro for her chest pain -continue topiramate #hepatic venous congestion - -noted on CTA chest -but does not examine in CHF -LFTs wnl #tobacco use - -nicoderm patch -encourage smoking cessation #polyneuropathy - -continue Cymbalta and Lyrica #asthma - -continue home inhalers -no exacerbation at this time #hypothyroidism - -continue levothyroxine -last TSH in 01/2025 was mildly depressed -consider recheck while here #mental health - -continue amitriptyline, buspirone #GERD - -continue famotidine Admission and Anticipated Discharge Date Admission Date: February 27, 2025 Subjective tele overnight wnl patient reports she is still at times getting very mild intermittent chest discomfort but nothing severe and nothing like what she had at home pain did feel similar to previous times when she had stents placed main complaint is the left should and arm "feeling " and weak - but this is chronic she states the arm has been like that since her last heart cath in 2023? does hurt to lay on left shoulder and to rotate/abduct the shoulder had rotator cuff repair with Dr Bourgeois many years ago denies any orthopnea or dyspnea Review of Systems Review of Systems: cv - see HPI; no PND, no edema pulm - no dyspnea today; mild cough GI - no abd pain or N/V Physical Exam Physical Exam: gen - anxious, but pleasant, NAD neck - no JVD mouth - MMM heart - RRR, s1 s2, no murmur lungs - minimal dry rales bases, otherwise CTA b/l abd - soft NT ND BS+ ext - no peripheral edema, pulses 2+ b/l musculo - left shoulder - tender over the AC joint, tender subacromial region to palpation; with abduction, at 90 degrees, she starts to develop pain and di fficulty raising the arm further; internal and external rotation of left shoulder causes pain as well; no jeffry-articular muscle atrophy Results & Data Results & Data Vital Signs (Past 12 Hours) Vital Signs Temp Pulse Pulse Resp BP Pulse Ox O2 Del Method 02/28/25 10:00 Room Air 02/28/25 07:13 36.5 C 54 L 18 114/69 97 Room Air 02/28/25 03:35 36.5 C 55 L 20 128/83 96 Room Air 02/28/25 00:11 51 L 02/28/25 00:04 Room Air 02/27/25 22:47 136/83 Laboratory Results Laboratory Results - last 48 hr 02/27/25 02/27/25 02/27/25 16:13 19:42 20:22 WBC 9.70 RBC 4.54 Hgb 13.2 Hct 40.9 MCV 90.1 MCH 29.1 MCHC 32.3 RDW Std Deviation 51.2 H RDW Coeff of Garcia 15.5 H Plt Count 230 MPV 9.8 Immature Gran % (Auto) 0.3 Neut % (Auto) 44.5 Lymph % (Auto) 43.8 Edgar % (Auto) 7.8 Eos % (Auto) 2.7 Baso % (Auto) 0.9 Neut # (Auto) 4.31 Lymph # (Auto) 4.25 H Edgar # (Auto) 0.76 H Eos # (Auto) 0.26 Baso # (Auto) 0.09 Immature Gran # (Auto) 0.03 PT 10.3 INR 1.0 APTT 29 PTT Ratio 1.1 Sodium 140 Potassium 3.6 Chloride 109 H Carbon Dioxide 23 Anion Gap 8 BUN 12 Creatinine 0.79 Est Cr Clr Drug Dosing 95.9 eGFR 87.74 BUN/Creatinine Ratio 15.2 Glucose 79 Estimat Average Glucose Hemoglobin A1c Calcium 9.1 Magnesium 2.1 Total Bilirubin 0.4 AST 14 ALT 10 Alkaline Phosphatase 99 Troponin I High Sens 4.0 6.1 Total Protein 6.8 Albumin 3.7 Globulin 3.1 Albumin/Globulin Ratio 1.2 Triglycerides Cholesterol LDL Cholesterol, Calc VLDL Cholesterol, Calc HDL Cholesterol Cholesterol/HDL Ratio Lipase 31 Adenovirus (PCR) Not Detected B. pertussis DNA (PCR) Not Detected B.parapertussis DNA PCR Not Detected C. pneumoniae DNA (PCR) Not Detected Coronavirus OC43 (PCR) Not Detected Coronavirus HKU1 (PCR) Not Detected Coronavirus 229E (PCR) Not Detected SARS-CoV-2 (PCR) Not Detected Coronavirus NL63 (PCR) Not Detected Human Metapneumovir PCR Not Detected Influenza Type A (PCR) Not Detected Influenza Type B (PCR) Not Detected M. pneumoniae (PCR) Not Detected Parainfluenza 1 (PCR) Not Detected Parainfluenza 2 (PCR) Not Detected Parainfluenza 3 (PCR) Not Detected Parainfluenza 4 (PCR) Not Detected RSV (PCR) Not Detected Entero/Rhino (PCR) Not Detected 02/28/25 02/28/25 02:28 07:50 WBC 7.33 RBC 4.51 Hgb 13.1 Hct 40.3 MCV 89.4 MCH 29.0 MCHC 32.5 RDW Std Deviation 51.1 H RDW Coeff of Garcia 15.7 H Plt Count 230 MPV 10.0 Immature Gran % (Auto) 0.4 Neut % (Auto) 40.4 Lymph % (Auto) 48.3 Edgar % (Auto) 7.2 Eos % (Auto) 2.6 Baso % (Auto) 1.1 Neut # (Auto) 2.96 Lymph # (Auto) 3.54 H Edgar # (Auto) 0.53 Eos # (Auto) 0.19 Baso # (Auto) 0.08 Immature Gran # (Auto) 0.03 PT INR APTT PTT Ratio Sodium 137 Potassium 4.2 Chloride 109 H Carbon Dioxide 21 Anion Gap 7 BUN 13 Creatinine 0.87 Est Cr Clr Drug Dosing 86.0 eGFR 78.15 BUN/Creatinine Ratio 14.9 Glucose 106 H Estimat Average Glucose 114 Hemoglobin A1c 5.6 Calcium 9.2 Magnesium 2.1 Total Bilirubin AST ALT Alkaline Phosphatase Troponin I High Sens 5.6 4.8 Total Protein Albumin Globulin Albumin/Globulin Ratio Triglycerides 226 H Cholesterol 144 LDL Cholesterol, Calc 62 VLDL Cholesterol, Calc 45 H HDL Cholesterol 37 Cholesterol/HDL Ratio 3.9 Lipase Adenovirus (PCR) B. pertussis DNA (PCR) B.parapertussis DNA PCR C. pneumoniae DNA (PCR) Coronavirus OC43 (PCR) Coronavirus HKU1 (PCR) Coronavirus 229E (PCR) SARS-CoV-2 (PCR) Coronavirus NL63 (PCR) Human Metapneumovir PCR Influenza Type A (PCR) Influenza Type B (PCR) M. pneumoniae (PCR) Parainfluenza 1 (PCR) Parainfluenza 2 (PCR) Parainfluenza 3 (PCR) Parainfluenza 4 (PCR) RSV (PCR) Entero/Rhino (PCR) Diagnostic Findings EKGs - NSR, no ST changes PG Care Time/CCT Total # of Minutes Spent Total Time Spent with Patient: Total time spent is greater than 50% in coordination of care (as documented) at patient's floor/unit and/or counseling patient: Coding Level of Care Code 41787 SUB INP/OBS CARE 2/35MIN Diagnoses Chest pain R07.9 History of coronary artery disease Z86.79 Tobacco abuse Z72.0 Headache R51.9
--- NOTE | 2025-02-28 12:33 | XRay Report ---
3 views of the left shoulder are submitted for review. Findings: No fracture or dislocation is seen. No significant arthritic changes are noted. No other osseous abnormality is identified. There are no radiopaque foreign bodies. Impression: Unremarkable radiographs of the left shoulder Electronically signed by Hardy Neumann 02-28-2025 12:33 PM
--- NOTE | 2025-02-28 13:00 | XCELERA ---
[id number] \\[id number]
--- NOTE | 2025-03-01 06:24 | Electrocardiogram Report ---
Test Reason : Blood Pressure : */* mmHG Vent. Rate : 60 BPM Atrial Rate : 60 BPM P-R Int : 194 ms QRS Dur : 84 ms QT Int : 404 ms P-R-T Axes : 68 66 80 degrees QTcB Int : 404 ms Poor data quality, interpretation may be adversely affected Normal sinus rhythm Cannot rule out Anterior infarct (cited on or before 28-Aug-2023) Abnormal ECG When compared with ECG of 28-Aug-2023 19:26, No significant change was found Confirmed by Keyon Conner ([id number]) on 03/01/2025 6:24:12 AM Referred By: Confirmed By: Keyon Conner
--- NOTE | 2025-03-01 06:24 | Electrocardiogram Report ---
Test Reason : Blood Pressure : */* mmHG Vent. Rate : 62 BPM Atrial Rate : 62 BPM P-R Int : 202 ms QRS Dur : 86 ms QT Int : 416 ms P-R-T Axes : 56 65 72 degrees QTcB Int : 422 ms Normal sinus rhythm Cannot rule out Anterior infarct (cited on or before 28-Aug-2023) Abnormal ECG When compared with ECG of 27-Feb-2025 15:09, No significant change was found Confirmed by Keyon Conner ([id number] on 03/01/2025 6:24:30 AM Referred By: REFERRED SELF Confirmed By: Keyon Conner
[2025-03-01] MEDS: TRIAMCINOLONE ACET 0.1% CR 15 GM TUBE EXT SCH (10:03)
--- NOTE | 2025-03-01 11:31 | Cardiology Progress Note ---
Date of Service March 01, 2025 Assessment & Plan (1) Exertional angina: (2) CAD (coronary artery disease): (3) Hyperlipidemia: (4) Presence of drug coated stent in LAD coronary artery: (5) Tobacco abuse: Plan ASSESSMENT/PLAN: 1. Angina: She gives a history of crescendo angina reminiscent of prior [place]. Continue antiplatelet therapy. If she has any significant recurrence, would recommend heparin drip if no contraindication. Recommended coronary angiography which is tentatively pending tomorrow. She was asked to contact nursing staff immediately for recurrent angina. No rest symptoms. 2. CAD s/p LAD PCI x 2: Symptoms similar to previous [place] as above. Continue aspirin 81 mg daily indefinitely. Continue Plavix. Continue high intensity statin therapy. Not on beta-jenn as she is mildly bradycardic at times. 3. Tobacco abuse: Recommend smoking cessation. 4. Dyslipidemia: Most recent LDL is well-controlled. Continue high intensity statin therapy. 5. Disposition: Cardiology will continue to follow. Will sign out to interventional cardiology, Dr. Cason, who will be available tomorrow. On discharge, follow-up with her primary flat finisher, Dr. Murray. Patient care discussed with Dr. Thomas of the primary hospitalist service. N.p.o. after midnight. Admission and Anticipated Discharge Date Admission Date: February 27, 2025 Subjective She was seen this morning. She had very brief episodes of chest discomfort when out of bed but otherwise no rest symptoms. No symptoms nearly as significant as on presentation. She denies shortness of breath, syncope, near syncope, palpitations, edema, or bleeding. Her left shoulder discomfort remains, especially with movement of her left arm. She was unaccompanied. Physical Exam Physical Exam: Gen.: No acute distress. Alert and oriented. HEENT: Anicteric sclera. Neck: No JVD. Cardiac: Regular. Normal S1-S2. No murmurs, rubs, or gallops. Pulmonary: Basilar crackles cleared with cough. Abdomen: Soft, nontender, nondistended, with normoactive bowel sounds. No bruits noted. Extremities: 2+ radial pulses bilaterally. 2+ posterior tibialis pulses bilaterally. No significant pitting edema or cyanosis. Results & Data Vital Signs (Past 12 Hours) Vital Signs Temp Pulse Pulse Resp BP Pulse Ox O2 Del Method 03/01/25 10:45 36.5 C 61 16 106/71 96 Room Air 03/01/25 09:51 Room Air 03/01/25 09:28 58 L 03/01/25 07:13 36.6 C 61 20 112/73 93 Room Air 03/01/25 03:11 114/78 03/01/25 03:11 108/71 03/01/25 03:10 36.5 C 65 16 121/86 94 Room Air Diagnostic Findings Telemetry personally reviewed: Sinus bradycardia 50s overnight and sinus rhythm in the 60s this morning. No arrhythmia. Echo report reviewed from 02/28/2025: Normal LV size, wall motion, systolic function. EF 55-60%. No LVH. No significant valvular abnormalities. Medications Administered Current Inpatient Medications Acetaminophen (Acetaminophen 325 Mg Tab) 650 mg PO Q4H PRN PRN Reason: Pain or Fever Stop: 03/29/25 22:27 Albuterol (Albuterol Hfa 8 Gm Inhaler) 2 puffs INH QID PRN PRN Reason: Shortness Of Breath Or Wheezin Stop: 03/29/25 22:27 Alprazolam (Alprazolam 0.25 Mg Tablet) 0.25 mg PO Q12H PRN PRN Reason: Anxiety Stop: 03/31/25 08:44 Last Admin: 03/01/25 09:18 Dose: 0.25 mg Amitriptyline HCl (Amitriptyline Hcl 10 Mg Tab) 10 mg PO HS [facility] Stop: 03/29/25 22:27 Last Admin: 02/28/25 21:04 Dose: 10 mg Aspirin (Aspirin 81 Mg Ectab) [facility] Stop: 03/30/25 08:59 Last Admin: 03/01/25 07:47 Dose: 81 mg Buspirone HCl (Buspirone 15 Mg Tab) 15 mg PO TID [facility] Stop: 03/29/25 22:27 Last Admin: 03/01/25 07:47 Dose: 15 mg Clopidogrel Bisulfate (Clopidogrel Bisulfate 75 Mg Tab) 75 mg PO QAM [facility] Stop: 03/30/25 08:59 Last Admin: 03/01/25 07:47 Dose: 75 mg Diphenhydramine HCl (Diphenhydramine Capsule 25 Mg Cap) 25 mg PO Q8H PRN PRN Reason: Itching Stop: 03/31/25 08:44 Docusate Sodium (Docusate Sodium 100 Mg Cap) 100 mg PO BID PRN PRN Reason: Constipation Stop: 03/29/25 22:27 Duloxetine HCl (Duloxetine Hcl 60 Mg Cap) 60 mg PO BID [facility] Stop: 03/29/25 22:27 Last Admin: 03/01/25 07:47 Dose: 60 mg Ezetimibe (Ezetimibe 10 Mg Tab) 10 mg PO QAM [facility] Stop: 03/30/25 08:59 Last Admin: 03/01/25 07:47 Dose: 10 mg Famotidine (Famotidine 20 Mg Tab) 20 mg PO BID [facility] Stop: 03/29/25 22:27 Last Admin: 03/01/25 08:01 Dose: 20 mg Hydromorphone HCl (Hydromorphone Inj 0.5 Mg/0.5 Ml Syr) 0.25 mg IV Q6H PRN PRN Reason: Moderate Pain (Scale 4, 5, 6) Stop: 03/13/25 23:18 Last Admin: 03/01/25 10:49 Dose: 0.25 mg Hydromorphone HCl (Hydromorphone Inj 0.5 Mg/0.5 Ml Syr) 0.5 mg IV Q6H PRN PRN Reason: Severe Pain (Scale 7, 8, 9,10) Stop: 03/13/25 23:18 Last Admin: 02/28/25 17:27 Dose: 0.5 mg Levothyroxine Sodium (Levothyroxine Sodium 137 Mcg Tablet) 137 mcg PO DAILYBB [facility] Stop: 03/30/25 06:29 Last Admin: 03/01/25 05:44 Dose: 137 mcg Melatonin (Melatonin 3 Mg Tab) 3 mg PO HS PRN PRN Reason: Sleep Stop: 03/29/25 22:27 Last Admin: 02/28/25 21:03 Dose: 3 mg Miscellaneous (Azelastine-Fluticasone 137-50 Mcg/[place] - Order Awaiting Action) 1 each N/A QS [facility] Stop: 03/30/25 00:00 Last Admin: 03/01/25 07:45 Dose: Not Given Miscellaneous (Icosapent Ethyl [Vascepa] - Order Awaiting Action) 1 each N/A QS [facility] Stop: 03/30/25 00:00 Last Admin: 03/01/25 07:45 Dose: Not Given Miscellaneous (Remove Nicoderm Patch) 1 each N/A DAILY@0859 [facility] Stop: 03/30/25 08:58 Last Admin: 03/01/25 07:48 Dose: 1 each Montelukast Sodium (Montelukast Sodium 10 Mg Tablet) 10 mg PO QAM [facility] Stop: 03/30/25 08:59 Last Admin: 03/01/25 07:47 Dose: 10 mg Nicotine (Nicotine 14 Mg/24 Hr Patch) 1 patch TD QAM [facility] Stop: 03/30/25 08:59 Last Admin: 03/01/25 07:48 Dose: 1 patch Ondansetron HCl (Ondansetron Inj 2 Mg/Ml 2 Ml Vial) 4 mg IV Q6H PRN PRN Reason: Nausea And Vomiting Stop: 03/29/25 22:27 Pregabalin (Pregabalin 75 Mg Cap) 225 mg PO BID [facility] Stop: 03/29/25 22:27 Last Admin: 03/01/25 08:01 Dose: 225 mg Rosuvastatin Calcium (Rosuvastatin Calcium 20 Mg Tab) 40 mg PO QAM [facility] Stop: 03/30/25 08:59 Last Admin: 03/01/25 07:46 Dose: 40 mg Topiramate (Topiramate 100 Mg Tab) 100 mg PO BID [facility] Stop: 03/29/25 22:27 Last Admin: 03/01/25 07:46 Dose: 100 mg Triamcinolone Acetonide (Triamcinolone Acet 0.1% Cr 15 Gm Tube) 1 appln EXT TID [facility] Stop: 03/31/25 08:59 Last Admin: 03/01/25 10:03 Dose: 1 appln Umeclidinium [place]ide (Umeclidinium [place] 62.5mcg/Blister 7 Puffs/Inhaler) 1 puffs INH DAILY [facility] Stop: 03/30/25 08:59 Last Admin: 03/01/25 07:48 Dose: 1 puffs PG Care Time/CCT Total # of Minutes Spent Total Time Spent with Patient: Total time spent is greater than 50% in coordination of care (as documented) at patient's floor/unit and/or counseling patient: Coding Level of Care Code 35309 SUB INP/OBS CARE 3/50MIN Diagnoses Exertional angina I20.89 Coronary artery disease involving [place] and [place] coronary artery of [place] heart without angina pectoris I25.10 Coronary Disease-Associated Artery/Lesion type: [place] artery [place] vs. transplanted heart: [place] heart Associated angina: without angina Hyperlipidemia, unspecified hyperlipidemia type E78.5 Hyperlipidemia type: unspecified Presence of drug coated stent in LAD coronary artery Z95.5 Tobacco abuse Z72.0 (2) CAD (coronary artery disease) Coronary Disease-Associated Artery/Lesion type: [place] artery [place] vs. transplanted heart: [place] heart Associated angina: without angina Qualified Code(s): I25.10 - Atherosclerotic heart disease of [place] coronary artery without angina pectoris (3) Hyperlipidemia Hyperlipidemia type: unspecified Qualified Code(s): E78.5 - Hyperlipidemia, unspecified
[2025-03-01] MEDS: diphenhydrAMINE Capsule 25 MG CAP PO PRN (13:21)
--- NOTE | 2025-03-01 18:32 | Hospitalist Progress Note ---
Date of Service March 01, 2025 Assessment & Plan (1) Chest pain: (2) History of coronary artery disease: (3) Tobacco abuse: (4) Headache: Plan 54yo female with known CAD ([place] 04/2016, LAD stent 05/2016, CHOCO to LAD 05/2023), migraines (follows with Dr. David Montilla), Hyperlipidemia, hypothyroidism, asthma, tobacco use. Presented with 2-3 days of intermittent chest pain that is midsternal, radiates to left arm, and occurs both at rest and on exertion. Chest pain was relieved with nitroglycerin at home and Nitropaste in the ED. #Chest pain with known CAD - -all troponins negative -EKGs w/o ischemic changes -echo this admit with preserved EF and normal LV wall motion -[id number], given that her symptoms are similar to when she had her [place] and her prior stents, Dr Conner from [facility] [place] Cardiology advised L heart cath on Sunday -in meantime - cont asa, plavix, zetia, crestor -if she has recurrent pain place on low-dose heparin infusion protocol -appreciate consult by Dr Conner -scheduled for L heart cath with Dr Cason on Sunday -NPO for such starting at [facility] -of note - last L heart cath 05/2023 - Findings: LM -normal caliber, no significant disease LAD -large caliber, focal 60 to 70% earlymid LAD stenosis at takeoff of small diagonal/septal. Mid LAD stent widely patent, distal LAD without significant disease and wraps around apex. Jailed small to medium D2 50% ostial. Circumflex -medium caliber, distal segment luminal regularities into left PLB. RCA -large caliber vessel, dominant, 20 to 30% mid segment stenosis. Large PDA, PAV without significant disease. #left shoulder pain - -seems c/w rotator cuff syndrome (tendonitis/bursitis) -L shoulder x-rays without significant arthritic changes -pain meds prn -avoid NSAIDs in setting of chest pain/CAD #Headache - -she did not mention any headache today -known migraines -headache induced by nitro for her chest pain at time of admission but none since -continue topiramate #hepatic venous congestion - -noted on CTA chest -but does not examine in CHF -LFTs wnl #tobacco use - -nicoderm patch -encourage smoking cessation #polyneuropathy - -continue Cymbalta and Lyrica #asthma - -continue home inhalers -no exacerbation at this time #hypothyroidism - -continue levothyroxine -last TSH in 01/2025 was mildly depressed -recheck in am tomorrow #anxiety/depression/PTSD/insomnia - -continue amitriptyline, buspirone, duloxetine -for situational anxiety related to having her cath tomorrow cont with low-dose xanax prn while hospitalized -would NOT recommend prescribing at discharge for chronic use -counseled her on such -behavioral health liaison consult placed -follows with psychiatry & counselor in [place] #GERD - -continue famotidine #fatigue - -B12 level in January was <200 ---> start B12 supplementation 1000mcg daily; will likely need about 6 months of replacement -check CPK -check TSH -check FE studies -at minimum her chronic fatigue is being worsened by insomnia and multiple mental health issues gave supportive therapy today re-eval tomorrow following heart cath care d/w Dr Conner from cardiology Admission and Anticipated Discharge Date Admission Date: February 27, 2025 Subjective patient VERY anxious during the visit she is worried about the cath tomorrow and is concerned she will be told she needs open heart surgery and have to "join the zipper club" (having sternotomy) continues with L shoulder pain and continues with a superficial musculoskeletal pain on the left upper chest wall no dyspnea eating fine no N/V during the visit - unexpectedly - she began to talk about "I'm worried he's gonna come and find me" I asked her who she was talking about and she reported it was her ex- she reports she went thru a severe divorce; they had to see each other in court during the divorce proceedings she said "I won, he didn't, and he is not happy about that" she is worried he will come and find her at night-time either here or at her house gave reassurances to her that she is safe here at the hospital she reports very poor sleep chronically, having frequent night-time awakening she does follow with a psychiatrist as well as a counselor outside the hospital I offered to consult our behavioral health liaison and she was agreeable to this does report the xanax helps calm her and she plans to talk to her PCP or psychiatrist about xanax we discussed chronic benzo use and the dependency that comes with chronic usage; advised against chronic use Review of Systems Review of Systems: pulm - no dyspnea, no BURK GI - has nausea when she has severe anxiety CV - no substernal pain, just L upper chest wall discomfort Physical Exam Physical Exam: gen - very anxious, tearful/scared/fearful neck - no JVD mouth - MMM heart - RRR, s1 s2, no murmur chest - reproducible chest wall tenderness to palpation L upper chest lungs - CTA b/l abd - soft NT ND BS+ ext - no peripheral edema, pulses 2+ b/l psych - a/o x 3, but very very anxious and tearful Results & Data Results & Data Vital Signs (Past 12 Hours) Vital Signs Temp Pulse Pulse Resp BP Pulse Ox O2 Del Method 03/01/25 15:33 36.4 C L 62 22 119/80 96 Room Air 03/01/25 14:23 63 03/01/25 10:45 36.5 C 61 16 106/71 96 Room Air 03/01/25 09:51 Room Air 03/01/25 09:28 58 L 03/01/25 07:13 36.6 C 61 20 112/73 93 Room Air PG Care Time/CCT Total # of Minutes Spent Total Time Spent with Patient: Total time spent is greater than 50% in coordination of care (as documented) at patient's floor/unit and/or counseling patient: Coding Level of Care Code 92717 SUB INP/OBS CARE 3/50MIN Diagnoses Chest pain R07.9 History of coronary artery disease Z86.79 Tobacco abuse Z72.0 Headache R51.9
[2025-03-02 06:16] LABS: Anion Gap 6.0 (3-11); Blood Urea Nitrogen 10.0 mg/dl (6-23); Calcium 9.4 mg/dl (8.6-10.3); Carbon Dioxide 24.0 mmol/L (21-32); Chloride 109.0 mmol/L (98-107); Creatine Kinase 253.0 U/L (26-192); Creatinine Clr Calc Pharmacy 74.0 ml/min; Glucose 86.0 mg/dl (70-99(Fasting)); Iron 74.0 mcg/dl (35-150); Potassium 3.9 mmol/L (3.5-5.1); Sodium 139.0 mmol/L (136-145); Total Iron Binding Cap Calc 265.0 mcg/dl (250-450); Transferrin 189.0 mg/dl (200-360); Transferrin (FE) Percent Satur 28.0 % (15-50)
[2025-03-02 06:31] LABS: Thyroid Stimulating Hormone 0.359 uIu/ml (0.300-4.500)
[2025-03-02 06:37] LABS: Ferritin 42.5 ng/ml (8-388)
--- NOTE | 2025-03-02 09:03 | Pre Anesthesia Assessment ---
Date of Service March 02, 2025 Pre Sedation Assessment Vital Signs Temp Pulse Pulse Resp BP Pulse Ox O2 Del Method 03/02/25 07:47 66 03/02/25 07:16 36.4 C L 59 L 18 103/68 97 Room Air 03/02/25 03:00 36.3 C L 58 L 16 100/58 L 97 Room Air 03/02/25 00:19 36.5 C 62 16 132/70 93 Room Air 03/01/25 21:15 59 L 03/01/25 20:00 36.9 C 62 18 110/75 96 Room Air 03/01/25 15:33 36.4 C L 62 22 119/80 96 Room Air 03/01/25 14:23 63 03/01/25 10:45 36.5 C 61 16 106/71 96 Room Air 03/01/25 09:51 Room Air 03/01/25 09:28 58 L Cardiovascular RRR, no murmur, no edema Respiratory normal respiratory effort, lungs clear to auscultation Pre-Sedation Airway Assessment Smoking Status: Current every day smoker Hx Sleep Apnea: No MALLAMPATI 4 ASA 3 Notes The planned sedation has been discussed with the patient. Informed Consent was obtained. I have identified the patient, determined the appropriateness of sedation and have assessed the patient immediately prior to the procedure. All medicine(s) and interventions are by my order.
--- NOTE | 2025-03-02 09:37 | Post Anesthesia Assessment ---
Date of Service March 02, 2025 Post Sedation Assessment Vital Signs Temp Pulse Pulse Resp BP Pulse Ox O2 Del Method 03/02/25 07:47 66 03/02/25 07:16 36.4 C L 59 L 18 103/68 97 Room Air 03/02/25 03:00 36.3 C L 58 L 16 100/58 L 97 Room Air 03/02/25 00:19 36.5 C 62 16 132/70 93 Room Air 03/01/25 21:15 59 L 03/01/25 20:00 36.9 C 62 18 110/75 96 Room Air 03/01/25 15:33 36.4 C L 62 22 119/80 96 Room Air 03/01/25 14:23 63 03/01/25 10:45 36.5 C 61 16 106/71 96 Room Air 03/01/25 09:51 Room Air Recovery Score Activity: Moves 4 extremities Respiration: Deep Breath/Cough Circulation: +/-20% PreAnes Value Consciousness: Fully Awake Oxygen Saturation: > 92% On Room Air Discharge Sedation Level of Care: Fast Track Phase II Post Sedation Plan On clinical assessment, the patient appears to have tolerated the sedation without complications. Patient is recovering as anticipated. Patient will continue to be monitored by nursing and may be discharged when sedation discharge criteria are met per below protocol. Upon Completions of procedure up to 15 minutes continue every 5 minute vital signs and the P.A.R. score; then discharge to a Phase I or Fast Track to Phase II per the following guidelines: * Discharge Patient to appropriate Phase II area if PAR is 8 or greater or return to pre- procedure baseline. The post - procedure orders will be as directed. * If PAR score is less than 8 or not return to pre-procedure baseline then patient will follow Phase I monitoring till PAR is reached for Phase II. The Phase I may be done in procedure room or may call to secure a Phase I area. * If naloxone or flumazenil are used for reversal, hold in Phase I for continued monitoring from when last reversal dose was given for a minimum of 60 minutes or longer pending the nurse and/or physician discretion of patient condition before discharge to Phase II. Please call the Sedation Physician to re-evaluate and complete post-note for discharge to Phase II area. Do NOT discharge from procedure sedation or Phase 1 until post- sedation evaluation note is complete by procedure /sedation MD Sedation Discharge Instructions to be given to the patient at discharge to home. [facility] [place]odes (Charges) Indication for Procedure Indication for procedure: unstable angina
[2025-03-02] MEDS: MIDAZOLAM HCL 1 MG/ML 2ML VIAL ONE ×2 (09:43→10:17)
[2025-03-02] MEDS: HEPARIN (PORCINE) 1000 UNIT/ML 10 ML (CATH LAB USE ONLY) ONE (09:43)
[2025-03-02] MEDS: NITROGLYCERIN/D5W 100MCG/ML 20ML SYR ONE (09:44)
[2025-03-02] MEDS: OPTIRAY 350 ONE (09:44)
[2025-03-02] MEDS: niCARdipine 2,000 MCG/20 ML SYR ONE (09:44)
[2025-03-02] MEDS: CYANOCOBALAMIN (B-12) 500 MCG TABLET PO SCH (10:20)
--- NOTE | 2025-03-02 12:57 | Hospitalist Progress Note ---
Date of Service March 02, 2025 Assessment & Plan (1) Chest pain: Plan: -s/p Left heart cath -f/u results (2) History of coronary artery disease: Plan: -cont asa, plavix, zetia, crestor (3) Headache: Plan: -headache induced by nitro for her chest pain at time of admission but none since -continue topiramate (4) Depression with anxiety: Plan: -continue amitriptyline, buspirone, duloxetine Plan 54yo female with known CAD ([place] 04/2016, LAD stent 05/2016, [place]OCO to LAD 05/2023), migraines (follows with Dr. David Montilla), Hyperlipidemia, hypothyroidism, asthma, tobacco use. Presented with 2-3 days of intermittent chest pain that is midsternal, radiates to left arm, and occurs both at rest and on exertion. Chest pain was relieved with nitroglycerin at home and Nitropaste in the ED. Admission and Anticipated Discharge Date Admission Date: February 27, 2025 Subjective Pt s/p cath, resting in bed. Review of Systems Review of Systems: CONST: Negative for fever, body aches and chills. HENT: Negative for neck pain/stiffness, headache, congestion, sore throat, swelling. EYES: Negative for discharge/pain or vision changes. RESP: Negative for cough/hemoptysis and shortness of breath. CV: Negative chest pain, difficulty breathing, palpitations. ABD: Negative pain, nausea, vomiting. : Negative increase frequency, dysuria, blood in urine or stool. MUSC: Negative for muscle aches, edema. SKIN: Negative rash, lesions/sores. NEURO: Negative headache, dizziness, weakness. Physical Exam Physical Exam: GENERAL APPEARANCE NAD, activity normal for age, well developed/ well nourished, no cyanosis, pallor, or diaphoresis. EYES lids/conjunctiva normal. EARS/NOSE/THROAT Mucous membranes moist, nares normal, lips/teeth normal uvula midline without oral pharyngeal erythema, exudate or swelling TMs normal bilaterally. No lymphangitis/lymphedema. HEAD/NECK normocephalic atraumatic, no facial trauma, neck is supple. RESPIRATORY respiratory effort normal, speaks in full sentences, no tripod position, no accessory muscle use. Lungs clear to auscultation without rhonchi, wheezes, rales CARDIAC Regular rate and rhythm, no edema. ABDOMINAL Soft, ND/NT. No evidence of fluid wave. No pulsatile masses on exam, rebound tenderness, Chappell sign or pain over Mcburney's point. MUSCLES/EXTREMITIES No abnormal range of motion, no swelling. SKIN Warm, pink and dry. No rashes, dermatoses, petechiae or lesions. NEUROLOGICAL Speech is clear and appropriate. Normal level of consciousness. G ait and coordination are normal. 5/5 strength in all extremities. PSYCH Normal mood and affect. Judgement/competence is appropriate Results & Data Results & Data Vital Signs (Past 12 Hours) Vital Signs Temp Pulse Pulse Resp BP Pulse Ox O2 Del Method 03/02/25 11:21 36.4 C L 62 18 103/68 95 Room Air 03/02/25 11:02 Room Air 03/02/25 10:17 36.3 C L 57 L 18 119/78 98 Room Air 03/02/25 09:58 61 16 117/75 98 Room Air 03/02/25 09:43 59 L 15 125/66 96 Room Air 03/02/25 07:47 66 03/02/25 07:16 36.4 C L 59 L 18 103/68 97 Room Air 03/02/25 03:00 36.3 C L 58 L 16 100/58 L 97 Room Air PG Care Time/CCT Total # of Minutes Spent Total Time Spent with Patient: Total time spent is greater than 50% in coordination of care (as documented) at patient's floor/unit and/or counseling patient: Coding Level of Care Code 58532 SUB INP/OBS CARE 2/35MIN Diagnoses Chest pain R07.9 History of coronary artery disease Z86.79 Headache R51.9 Depression with anxiety F41.8
--- NOTE | 2025-03-02 16:26 | Cardiac Catheterization ---
[facility] Data: Brick Setter Cardiac Status Clinical evaluation leading to the procedure CAD Presenation: Unstable angina Anginal Classification: CCS III Heart Failure: No Cardiogenic Shock within 24 Hours: No Cardiac Arrest within 24 Hours: No Imaging Studies Past 6 Months: Yes Stress Studies Past 6 Months: No Coronary Anatomy Left Main (% Stenosis): Normal LAD (% Stenosis): Proximal (Normal), Mid (Stent patent then 20%) and Distal (Stent patent. 20% early in-stent restenosis) D1 (% Stenosis): Normal D2 (% Stenosis): Ostial (40%) Circumflex (% Stenosis): Normal OM1 (% Stenosis): Normal L PL1 (% Stenosis): Normal RCA (% Stenosis): Mid (30 to 40%) R PDA (% Stenosis): Normal R PL1 (% Stenosis): Normal Diagnostic Physicians Name: Rashid Cason MD, PhD Closure Device Percutaneous Entry Location: Femoral Closure Device: Angio-Seal Recommendations: Medical Therapy and/or Counseling Intraprocedure Events Significant Disection: No Perforation: No Cardiac Cath Procedure Full Procedure Date March 02, 2025 Pre-Procedure Diagnosis Pre-Procedure Diagnosis: Angina AUC Score AUC Score: 7 Post-Procedure Diagnosis Post-Procedure Diagnosis: Normal Coronary Arteries Procedure(s) Performed Procedure(s) Performed: Coronary Angiography and Ultrasound Guided Vascular Access Crusher Tender Rashid Cason MD, PhD Estimated Blood Loss Estimated Blood Loss: 5 cc Medication(s) Medication(s): Fentanyl, Heparin, Lidocaine 1% and Versed Summary of Findings Brief description: Patient was brought to the cardiac catheterization suite where she was shaved and prepped in a sterile fashion. Sedated using IV Versed and fentanyl. Soft tissues of the right groin were anesthetized using 10 mL of 1% Xylocaine. Using the ultrasound for guidance, the right femoral artery was accessed with a micropuncture kit and a 4 [place]ian micropuncture sheath was placed. This was then exchanged over a J-wire for a 5 [place]ian femoral artery sheath. All catheters were advanced and exchanged over a 0.035 J-tip wire. Left coronary angiography in orthogonal views with a 5 [place]ian JL 4 diagnostic catheter. Right coronary angiography in orthogonal views with a 5 [place]ian JR4 diagnostic catheter. Diagnostic catheters were removed. Limited right femoral artery angiography was performed to evaluate for closure. Findings were favorable, therefore, the femoral artery sheath was exchanged for a 6 [place] Angio-Seal closure device. This was deployed in the recommended fashion. We obtained immediate hemostasis and the patient remained hemodynamically stable. She was returned to the recovery area in stable condition. This ended the case. Coronary angiography findings: FRE-[id number]-[id number] vessel bifurcating into LAD and circumflex. No disease. LAD-this is large and transapical. Gives a small D1, medium D2, and several small diagonals afterwards. Proximal vessel is without significant disease past the first diagonal. Then, there is a previously placed stent which is widely patent. Second diagonal has ostial 40% stenosis and just after this there is a long stent in the LAD. It has in-stent restenosis and the earliest part of the stent of less than 20-30 %. There is mild 20% stenosis between the 2 stents in the midsegment. LCx-large and nondominant. Travels in the AV groove giving an atrial branch and then a small OM1. A second atrial branch then arises and the distal AV groove circumflex terminates in a medium caliber posterolateral. There is no more than mild luminal irregularities in the circumflex and its branches. RCA-this is large and dominant. Proximally no disease. Mid segment with 30 to 40% stenosis. Distal vessel without disease and bifurcates into a large PDA and large posterolateral. These vessels have no disease. Summary: 1. Patent prior stents. 2. No more than mild nonocclusive coronary artery disease 3. Continue guideline directed medical therapy for secondary prevention of coronary artery disease. Would remain on dual antiplatelet therapy as well. Could consider the addition of ranolazine for as an antianginal medication. Hemodynamics Rest Ao:: 106/66 mm of Final Ao: 124/67 mmHg LV: Not performed Recommendations Recommendations: Medical Therapy and/or Counseling Radiation Exposure (mGy) 593 mGy, fluoroscopy time 1.3 minutes Contrast (mls) 25 cc Anesthesia 2 mg Versed, 75 mcg fentanyl IV. Start 920 and 932 Procedural Complication(s) None Disposition Brick Setter Holding/Recovery I attest to the content of the Intraoperative Record and any orders documented therein. Any exceptions are noted below. [facility] [place] Card Cath Procedure Codes Cardiac Catheterization Procedure 1: Cardiovascular Cath Procedures: 34883 Coronaries Therapeutic Services & Ancillary Procedure 1: Cardiovascular Tx and Anc Procedures: 50745 Ultrasonic Guidance Vascular Access Moderate Sedation Procedure 1: Sedation/Anesthesia: 02491 Mod Sedation by the same physician;Init15 Min Child Age 5 & Up (Initial 15 minutes, start time 920, end time 932) PG Care Time/CCT Total # of Minutes Spent Total Time Spent with Patient: Total time spent is greater than 50% in coordination of care (as documented) at patient's floor/unit and/or counseling patient:
[2025-03-03 07:14] VITALS: BP 116/79; RESP 18; TEMP 97.7; O2SAT 98
--- NOTE | 2025-03-03 09:41 | Discharge Summary ---
Discharge Summary Date of Service March 03, 2025 Principal Dx & Hospital Course #1 = Principal Diagnosis (1) Chest pain: -s/p Left heart cath -f/u results shows no acute obstructions (2) History of coronary artery disease: -cont asa, plavix, zetia, crestor (3) Headache: -headache induced by nitro for her chest pain at time of admission but none since -continue topiramate (4) Depression with anxiety: -continue amitriptyline, buspirone, duloxetine Plan 54yo female with known CAD ([place] 04/2016, LAD stent 05/2016, CHOCO to LAD 05/2023), migraines (follows with Dr. David Montilla), Hyperlipidemia, hypothyroidism, asthma, tobacco use. Presented with 2-3 days of intermittent chest pain that is midsternal, radiates to left arm, and occurs both at rest and on exertion. Chest pain was relieved with nitroglycerin at home and Nitropaste in the ED. Admission HPI Per Admitting Provider Patient is a 54-year-old female with a past medical history of CAD ([place] 04/2016, LAD stent 05/2016, CHOCO to LAD 05/2023), migraines (follows with Dr. Montilla), HLD, hypothyroidism, asthma, tobacco use. Patient presented due to 2 to 3 days of intermittent chest pain that is midsternal, radiates to left arm, and occurs both at rest and on exertion. Chest pain was relieved with nitroglycerin at home and Nitropaste in the ED. She is being admitted for further cardiac workup. Patient seen at bedside. She stated for the past 2 to 3 days she has had intermittent chest pain that has been about the same since it started however also stated it is worse today. She is unable to quantify how many episodes per day that she is having however stated it is "a couple". The chest pain is midsternal and radiates to her left arm. It is not reproducible by palpation. Her left arm also feels heavy. Her range of motion of her left arm is at baseline, decreased when she raises her arm above her head however has been this way for many years. She does endorse falling in the shower 3 days ago and catching herself with her left arm. She is unsure of what caused the fall, denies any dizziness/lightheadedness, chest pain prior to the fall. She stated this feels like the first time she had her maker but yet also feels like the pain when she had her gallbladder removed. She denies any dizziness, lightheadedness, shortness of breath, nausea, vomiting associated with the pain. She does endorse a cough for several days however denies any congestion, rhinorrhea, or other flulike symptoms. She now has a headache after taking sublingual nitroglycerin at home. She continues to smoke 12 to 13 cigarettes/day due to significant stress at home. She denies any alcohol use. She continues to take her home medications and took them this morning, is on both aspirin and Plavix still. She has not followed with cardiology since 2023. She wishes to be full code. Note that the patient has a history of a similar presentation in May 2023 with negative troponins. She underwent DSE and was found to have abnormalities in the mid/distal anterior wall. She then underwent a cardiac cath which showed 60 to 70% stenosis of the LAD and underwent a single stent. It appeared as though she followed with Dr. Wilkerson in June 2023 however has been lost to follow-up since. Numerous discussions with nursing staff this patient is greatly concerned about her headache after nitroglycerin. Nursing had removed Nitropaste. Patient refused Tylenol earlier in the day, oftered repeat Tylenol however patient stated that it will not help. Discussed that we will not be giving any more NSAIDs with concern for cardiac issues. Will not be giving any more IV Dilaudid however could consider IV morphine as it will provide potential benefit to the heart as well. Patient stated she gets "stomach upset with this", offered Zofran to give with morphine however patient refused. Discharge Exam GENERAL APPEARANCE NAD, activity normal for age, well developed/ well nourished, no cyanosis, pallor, or diaphoresis. EYES lids/conjunctiva normal. EARS/NOSE/THROAT Mucous membranes moist, nares normal, lips/teeth normal uvula midline without oral pharyngeal erythema, exudate or swelling TMs normal bilaterally. No lymphangitis/lymphedema. HEAD/NECK normocephalic atraumatic, no facial trauma, neck is supple. RESPIRATORY respiratory effort normal, speaks in full sentences, no tripod position, no accessory muscle use. Lungs clear to auscultation without rhonchi, wheezes, rales CARDIAC Regular rate and rhythm, no edema. ABDOMINAL Soft, ND/NT. No evidence of fluid wave. No pulsatile masses on exam, rebound tenderness, Chappell sign or pain over Mcburney's point. MUSCLES/EXTREMITIES No abnormal range of motion, no swelling. SKIN Warm, pink and dry. No rashes, dermatoses, petechiae or lesions. NEUROLOGICAL Speech is clear and appropriate. Normal level of consciousness. Gait and coordination are normal. 5/5 strength in all extremities. PSYCH Normal mood and affect. Judgement/competence is appropriate Discharge Plan Discharge Items Patient Disposition: Home - Self-Care Reason For Visit: CHEST PAIN Discharge Diagnosis: Chest pain Condition on Discharge: Fair Activity: Resume your previous activity Non-emergency contact: Primary Care Provider Call non-emergency contact if: you have any medication questions Follow-up/Referrals: Angelita Barr DO [Primary Care Provider] - Diet: Regular Addtl Attending Provider Instructions: Follow up with PMD in 2 weeks Pending Studies at Discharge: No Stand-Alone Forms: My Snack[employer], Smoking Cessation Medications and DC Order Prescriptions: Continued nitroglycerin [Nitrostat] 0.4 mg tablet, sublingual 0.4 mg Sublingual UD PRN (Reason: chest pain) 30 Days Qty: 30 0RF Rx Instructions: TAKE EVERY 5 MIN. FOR CHEST PAIN icosapent ethyl [Vascepa] 1 gram capsule 2 g PO BID Qty: 360 2RF clopidogrel 75 mg tablet 75 mg PO QAM Qty: 90 1RF albuterol sulfate 90 mcg/actuation HFA aerosol inhaler 2 puff INHALATION QID PRN (Reason: Shortness Of Breath Or Wheezing) Qty: 18 3RF pyridoxine (vitamin B6) 10 mg tablet 10 mg PO DAILY buspirone 15 mg tablet 15 mg PO TID Qty: 90 2RF topiramate 100 mg tablet 100 mg PO BID Qty: 180 1RF duloxetine 60 mg capsule,delayed release(DR/EC) 60 mg PO BID Qty: 180 2RF loratadine [Claritin] 10 mg tablet 10 mg PO QAM Qty: 90 2RF furosemide [Lasix] 20 mg tablet 20 mg PO QAM PRN (Reason: edema) Qty: 30 2RF Spiriva Respimat 2.5 mcg/actuation mist 2 puff INH BID Qty: 4 3RF amitriptyline 10 mg tablet 10 mg PO HS Qty: 30 0RF pregabalin 225 mg capsule 225 mg PO BID Qty: 60 5RF guaifenesin [Mucinex] 1,200 mg tablet extended release 12hr 1,200 mg PO Q12H PRN (Reason: Congestion) famotidine 20 mg tablet 20 mg PO BID Qty: 180 1RF cholecalciferol (vitamin D3) 125 mcg (5,000 unit) capsule 125 mcg PO QAM Ajovy Autoinjector 225 mg/1.5 mL auto-injector 225 mg subcut .COMPLEX Qty: 1.5 3RF Rx Instructions: 225 mg subcutaneously Once monthly; levothyroxine 137 mcg tablet 137 mcg PO QAM aspirin 81 mg tablet,delayed release (DR/EC) 81 mg PO QAM montelukast 10 mg tablet 10 mg PO QAM ezetimibe 10 mg tablet 10 mg PO QAM rosuvastatin 40 mg tablet 40 mg PO QAM azelastine-fluticasone 137-50 mcg/spray spray,non-aerosol 1 spray intranasal BID PRN (Reason: allergies) Rx Instructions: administer into each nostril Discharge Orders: Discharge Order (Routine); Ordered 03/03/25 Ordered By: Gutierrez Hilliard Admission Data Admit Date/Time: 02/27/25 19:49 Attending Provider: Gutierrez Hilliard Admit Provider: Jus Hubbard Primary Care Provider: Angelita Barr Other Providers: Jus Hubbard; Keyon Conner Hospital Stay Data Consultations 02/27/25 18:54 ED Decision to Admit Stat 02/27/25 22:28 Consult Cardiology Routine 03/01/25 18:32 Consult Behavioral Health Liaison Routine Procedures Performed Operation Date: 03/02/25 08:00 Actual Procedures p Cineradiography w/Routine Exam - Rashid Cason MD, PhD p Cath, Coronaries ONLY (no LV) - Rashid Cason MD, PhD Diagnostic Imagining Performed 02/27/25 17:26 CT angio chest dissec wo/w con Stat 03/02/25 06:48 CL Cath Imgs for PACS use only Routine Pending Results Patient Have Any Pending Studies at Discharge: No Discharge Instructions Given to Patient (Per Discharging Provider) Follow up with PMD in 2 weeks Total Time Total Time Spent Total Time Spent (In Minutes): 50 Coding Level of Care Code 93939 INP/OBS DISCH >30 MIN Diagnoses Chest pain R07.9 History of coronary artery disease Z86.79 Headache R51.9 Depression with anxiety F41.8
[2025-03-03 16:42] VITALS: PULSE 74
--- NOTE | 2025-03-04 12:13 | Coding Query ---
CODING QUERY To promote full compliance with coding requirements relating to patient care, provider participation is requested in all cases of medical record coder uncertainty. Please assist us with the question(s) below: Coding Question(s): Please specify below, in your clinical opinion, regarding the cause of chest pain during this admission: ( x ) Chest Pain with unknown likely cause ( ) Chest Pain most likely from Unstable Angina ( ) Chest Pain most likely from Other: Please Specify Physician's Response(s): Thank you Apoorva Palm Principal Diagnosis: "that condition established after study, to be chiefly responsible for occasioning the admission of the patient to the hospital for care." Co-Existing Principal Diagnosis: "when two or more diagnoses equally meet the criteria for principal diagnosis as determined by the circumstances of admission, diagnostic work up, and/or therapy provided, and the Alphabetic Index, Tabular List, or another coding guideline does not provide sequencing direction, any one of the diagnoses may be sequenced first." "When the physician has documented what appears to be a current diagnosis in the body of the record, but has not included the diagnosis in the final diagnostic statement, the physician should be asked whether the diagnosis should be added." (Source Coding Clinic 2 QTR90. p3-4) [facility]
== END 2025-03-03 18:45 | disposition home or self-care (01) | DRG 287 ==
LOC: ED 15:04 → SUATTDRO 19:49 → 4W 19:49 → INTOOBSV 19:49 → 4W 22:02
PROC: CLB.CCO (2025-03-02 08:00)